=== PATIENT | male | born 1950 | race Caucasian/White ===

== ENCOUNTER → 2019-11-09 14:14 | Outpatient (BNVA) | payer MEDICARE, SELFPAY | PROVIDERS: Family Provider Nurse Practitioner; PCP Nurse Practitioner; Visit Provider Nurse Practitioner | DX: E11.65 Type 2 diabetes mellitus with hyperglycemia (principal); E78.1 Pure hyperglyceridemia; I10 Essential (primary) hypertension; F41.9 Anxiety disorder, unspecified | CPT/HCPCS: 80053; 80061; 81003; 83036 ==

== ENCOUNTER → 2020-01-06 10:01 | Outpatient (BNVA) | payer SELFPAY | PROVIDERS: Family Provider Nurse Practitioner; PCP Family Medicine; Visit Provider Anesthesiology | DX: G89.29 Other chronic pain (principal); M54.16 Radiculopathy, lumbar region; F17.290 Nicotine dependence, other tobacco product, uncomplicated; Z79.891 Long term (current) use of opiate analgesic | CPT/HCPCS: 99213; 99214 ==

== ENCOUNTER → 2020-03-28 10:44 | Outpatient (BNVA) | payer MEDICARE, SELFPAY | PROVIDERS: Family Provider Nurse Practitioner; PCP Family Medicine; Visit Provider Anesthesiology | DX: G89.29 Other chronic pain (principal); M54.41 Lumbago with sciatica, right side; M54.42 Lumbago with sciatica, left side; M54.16 Radiculopathy, lumbar region; F17.290 Nicotine dependence, other tobacco product, uncomplicated; Z79.891 Long term (current) use of opiate analgesic | CPT/HCPCS: 99213; 99214 ==

== ENCOUNTER → 2020-05-02 10:04 | Outpatient (BNVA) | payer MEDICARE, SELFPAY | PROVIDERS: Family Provider Nurse Practitioner; PCP Family Medicine; Visit Provider Anesthesiology | DX: G89.29 Other chronic pain (principal); M54.41 Lumbago with sciatica, right side; M54.42 Lumbago with sciatica, left side; M54.16 Radiculopathy, lumbar region; F17.290 Nicotine dependence, other tobacco product, uncomplicated; Z79.891 Long term (current) use of opiate analgesic | CPT/HCPCS: 99214 ==

== ENCOUNTER → 2020-07-03 10:00 | Outpatient (BNVA) | payer MEDICARE, SELFPAY | PROVIDERS: Family Provider Nurse Practitioner; PCP Family Medicine; Visit Provider Anesthesiology | DX: G89.29 Other chronic pain (principal); M54.42 Lumbago with sciatica, left side; M54.41 Lumbago with sciatica, right side; M54.16 Radiculopathy, lumbar region; F17.290 Nicotine dependence, other tobacco product, uncomplicated; Z79.891 Long term (current) use of opiate analgesic; Z71.6 Tobacco abuse counseling | CPT/HCPCS: 99214 ==

== ENCOUNTER → 2020-08-29 09:23 | Outpatient (BNVA) | payer MEDICARE, SELFPAY | PROVIDERS: Family Provider Nurse Practitioner; PCP Family Medicine; Visit Provider Anesthesiology | DX: G89.29 Other chronic pain (principal); M54.16 Radiculopathy, lumbar region; Z79.891 Long term (current) use of opiate analgesic | CPT/HCPCS: 99212; 99214 ==

== ENCOUNTER → 2020-10-31 10:07 | Outpatient (BNVA) | payer MEDICARE, SELFPAY | PROVIDERS: Family Provider Nurse Practitioner; PCP Family Medicine; Visit Provider Anesthesiology | DX: G89.29 Other chronic pain (principal); M54.16 Radiculopathy, lumbar region; F41.9 Anxiety disorder, unspecified; F32.9 Major depressive disorder, single episode, unspecified; Z79.891 Long term (current) use of opiate analgesic | CPT/HCPCS: 99214 ==

== ENCOUNTER 2020-11-12 11:21 | Emergency (ER) | payer MEDICARE, SELFPAY ==
[2020-11-12 11:24] VITALS: BP 127/87; PULSE 96; RESP 18; TEMP 36.2; O2SAT 96
--- NOTE | 2020-11-12 11:49 | CT_ITS ---
WS: [id number] CT HEAD NONCONTRAST HISTORY: ams TECHNIQUE: Contiguous axial imaging performed through the brain in 2.5 mm imaging. Bone and soft tiss ue windows. Sagittal and coronal reformats reviewed. All CT scans at [facility] use at ast one of these dose optimization techniques: automated exposure control; mA and/or kV adjustment pe r patient size (includes targeted exams where dose is matched to clinical indication); or iterative r econstruction. DLP: 889.88 mGy.cm COMPARISON: None available. No acute intracranial hemorrhage, midline shift or mass effect. Mild atrophy and severe chronic microvascular ischemic changes in the white matter. There is diffuse low attenuation within the white matter. No lacunar infarct. Ventricles: Normal size with no hydrocephalus. No inferior displacement of the cerebellar tonsils. Paranasal sinuses: As visualized are clear. Mastoid air cells: Well pneumatized. Calvarium and scalp: Skull is intact with no soft tissue edema or swelling. CT/CT head wo con* [id number] IMPRESSION: 1. No acute intracranial hemorrhage or edema. 2. Mild atrophy with moderate to severe chronic microvascular ischemic disease .
--- NOTE | 2020-11-12 11:55 | W.ED.AMS ---
HPI - Altered Mental Status General: Chief Complaint: Altered Mental Status Stated Complaint: Hallucinations/Pain Time Seen by Provider: 11/12/20 11:49 History of Present Illness: HPI narrative: Few days after starting Wellbutrin a week and a half ago he has started having visual and auditory hallucinations. Said his blood sugars been doing good. Has been taking pain medications as prescribed. complaint: confusion and weakness Onset (ago): day(s) Timing confirmed by: family member (Son) Severity: mild Context: change in medication Associated symptoms: Reports auditory hallucinations and visual hallucinations Review of Systems Const: Denies: fever(s), chills or body aches Eyes: Denies: change in vision or blurry vision ENMT: Denies: throat pain or nasal congestion Card: Denies: chest pain or dyspnea on exertion Resp: Denies: dyspnea, productive cough or non-productive cough GI: Denies: abdominal pain, nausea or vomiting : Denies: difficulty urinating Musc: Denies: extremity pain Skin/Breast: Denies: rash Neuro: Denies: headache(s) Psych: Reports: visual hallucinations and auditory hallucinations [place]/Lymph: Denies: easy bruising PFSH ED PFSH: Medical History (Updated 11/12/20 @ 13:21 by KWABENA Garza) Anxiety and depression Benign hypertension Chronic low back pain Chronic lumbar radiculopathy Controlled diabetes mellitus with hyperglycemia, without long-term current use of insulin DDD (degenerative disc disease), lumbar Encounter for long-term use of opiate analgesic Hypertriglyceridemia Opioid contract exists Vitamin D insufficiency Surgical History History of appendectomy History of colonoscopy 2016 History of squamous cell carcinoma excision Left hand 07/2019 Family History Mother Cancer Dementia Father Heart disease Social History Smoking and tobacco status: former smoker Second hand smoke exposure: No Smoking risk assessment/counseling performed?: Yes Alcohol intake: current Alcohol intake frequency: 0-2 Drinks per Day Alcohol type: beer Desire information about alcohol rehabilitation?: No (PATIENT CURRENTLY DENIES USE 01/06/2020) Counseling given: No Desire information about substance/drug rehabilitation?: No Counseling given: No Caregiver/support person: No Lives independently: Yes Marital status: History of recent travel: No Current gender identity: Male Physical Exam Const: COMMON NORMALS: no acute distress, average body habitus and patient oriented x3 HENMT: COMMON NORMALS: normocephalic HEAD & SCALP: normal to inspection and normocephalic FACE & SINUS: normal facial exam Eye: COMMON NORMALS: conjunctivae normal GENERAL EYE: appearance normal, both eyes and all related structures CONJUNCTIVA: Yes conjunctivae normal Neck/C-Spine: COMMON NORMALS: no JVD Chest: COMMONS NORMALS: normal inspection of the chest Resp: COMMON NORMALS: normal respiratory effort and clear to auscultation bilaterally AUSCULTATION: clear to auscultation bilaterally Cardio: COMMON NORMALS: no JVD, regular rate and regular rhythm RATE: regular rate RHYTHM: regular rhythm GI: COMMON NORMALS: Normal to inspection, nondistended, normoactive bowel sounds present Extremity: COMMON NORMALS: normal to inspection and full ROM Neuro: COMMON NORMALS: patient oriented x3 Skin: OTHER: Patient is scratches to arms knuckles legs. Course Vital Signs: Vital signs: Vital Signs Temperature 97.1 F L 11/12/20 11:24 Pulse Rate 79 11/12/20 12:56 Respiratory Rate 16 11/12/20 12:56 Blood Pressure 137/80 11/12/20 12:56 Pulse Oximetry 96 11/12/20 12:56 MDM - Altered Mental Status MDM Narrative: Medical decision making narrative: Patient vision auditory hallucinations started soon after starting on Wellbutrin. Patient says his anxiety depression became better on the Wellbutrin. Patient still continues on the medications and sugar has been fine. Patient has long history of abusing drugs and earlier age. Patient get labs repeated at his next visit especially over bilirubin and other labs patient is unaware this. Lab Data: Labs: Lab Results 11/12/20 11/12/20 Range/Units 12:05 12:05 WBC 10.4 H (4.0-10.0) 10^3/ uL RBC 5.03 (4.1-5.3) 10^6/u L Hgb 15.4 (11.7-16.6) g/dL Hct 43.4 (42.0-52.0) % MCV 86.3 (80-94) fL MCH 30.6 (28.0-34.0) pg MCHC 35.5 (30.0-36.0) g/dL RDW 13.2 (12.1-15.1) % Plt Count 245 (130-400) 10^3/c mm MPV 9.4 (7.4-10.4) fL Neut % (Auto) 82.4 % Lymph % (Auto) 8.4 % [place] % (Auto) 8.3 % Eos % (Auto) 0.1 % Baso % (Auto) 0.4 % Neut # (Auto) 8.55 H (1.8-7.7) 10^3/u L Lymph # (Auto) 0.9 (0.8-4.8) 10^3/u L [place] # (Auto) 0.9 (0.2-0.9) 10^3/u L Eos # (Auto) 0.0 (0.0-0.8) 10^3/u L Baso # (Auto) 0.0 (0.0-0.1) 10^3/u L Nucleated RBC % (a uto) 0 % Nucleated RBCs # 0.0 /100WBC Sodium 140 (136-145) mmol/L Potassium 3.6 (3.5-5.1) mmol/L Chloride 100 (98-107) mmol/L Carbon Dioxide 29 (22-29) mmol/L Anion Gap 14.6 (5-19) BUN 17 (8-23) mg/dL Creatinine 0.8 (0.7-1.2) mg/dL GFR Calculation 95.8 (90-130) mL/min Glucose 123 H (65-115) mg/dL Calculated Osmolal ity 293 (285-295) mOsm/k g Calcium 10.0 (8.5-10.5) mg/dL Total Bilirubin 2.0 H (0.15-1.2) mg/dL AST 48 H (0-40) U/L ALT 24 (0-41) U/L Alkaline Phosphata se 80 (40-130) IU/L Total Protein 6.4 L (6.6-8.7) g/dL Albumin 4.3 (3.5-5.2) g/dL Globulin 2.1 (1.3-4.6) g/dL Discharge Plan Discharge Patient Disposition: Home Clinical Impression: Anxiety and depression, Delirium due to general medical condition Condition: Stable Prescriptions: Discontinued bupropion HCl [Wellbutrin XL] 150 mg tablet extended release 24 hr 150 mg PO DAILY@10 RF: 0 No Action oxycodone 5 mg tablet 5 mg PO QID PRN (Reason: pain) 30 Days Qty: 120 RF: 0 multivitamin Tablet 1 tab PO DAILY@10 RF: 0 Seroquel 300 mg Tablet See Rx Instructions .ROUTE .COMPLEX RF: 0 trazodone 50 mg Tablet See Rx Instructions .ROUTE .COMPLEX RF: 0 Tylenol Extra Strength 500 mg Tablet 1,000 mg PO PRN RF: 0 vitamin B complex Tablet 1 tab PO DAILY RF: 0 saw palmetto 500 mg Capsule 1,000 mg PO BID RF: 0 CoQ-10 100 mg Capsule 100 mg PO DAILY RF: 0 Lipase Concentrate-HP 55 mg Capsule 55 mg PO DAILY RF: 0 tramadol 50 mg tablet 50 mg PO QID RF: 0 losartan 100 mg tablet 100 mg PO DAILY RF: 0 metformin 500 mg tablet extended release 24 hr 1,000 mg PO BID@10,22 RF: 0 Lexapro 20 mg tablet 20 mg PO BEDTIME RF: 0 fenofibrate nanocrystallized 145 mg tablet 145 mg PO DAILY RF: 0 Januvia 100 mg tablet 100 mg PO DAILY@10 RF: 0 Discharge Orders: Discharge ED (Routine); Ordered 11/12/20 Ordered By: Diego Delacruz Referrals: David Song, [facility] [Nurse Practitioner] - Galilea Regalado MD [Primary Care Provider] - Discharge Diet: Usual diet Discharge Activity: Increase activity as tolerated Activity Restrictions/Additional Instructions: Stop Wellbutrin. Follow-up your family medical provider here soon as possible and see about replacing Wellbutrin with another medication. Get ears washed out by your primary care provider if needed. Repeat labs at your next visit with your primary care provider do comprehensive medical metabolic panel and get a urinalysis. Coding Level of Care Code ED Superintendent [employer] Protection for Chg Fwd Exam Comprehensive
[2020-11-12 12:15] LABS: Basophils % 0.4 %; Eosinophils % 0.1 %; Hematocrit 43.4 % (42.0-52.0); Hemoglobin 15.4 g/dL (11.7-16.6); Lymphocytes # 0.9 10^3/uL (0.8-4.8); Lymphocytes % 8.4 %; Mean Corpuscular HGB Conc 35.5 g/dL (30.0-36.0); Mean Corpuscular Hemoglobin 30.6 pg (28.0-34.0); Mean Corpuscular Volume 86.3 fL (80-94); Mean Platelet Volume 9.4 fL (7.4-10.4); Monocytes # 0.9 10^3/uL (0.2-0.9); Monocytes % 8.3 %; Neutrophils # 8.55 10^3/uL (1.8-7.7); Neutrophils % 82.4 %; Nucleated Red Blood Cells % 0 %; Platelet Count 245 10^3/cmm (130-400); Red Blood Count 5.03 10^6/uL (4.1-5.3); Red Cell Distribution Width 13.2 % (12.1-15.1); White Blood Count 10.4 10^3/uL (4.0-10.0)
[2020-11-12 12:56] VITALS: BP 137/80; PULSE 79; RESP 16; O2SAT 96
[2020-11-12 13:13] LABS: Alanine Aminotransferase 24 U/L (0-41); Albumin Level 4.3 g/dL (3.5-5.2); Alkaline Phosphatase 80 IU/L (40-130); Anion Gap 14.6 (5-19); Aspartate Amino Transferase 48 U/L (0-40); Blood Urea Nitrogen 17 mg/dL (8-23); Carbon Dioxide 29 mmol/L (22-29); Chloride 100 mmol/L (98-107); Globulin 2.1 g/dL (1.3-4.6); Glomerular Filtration Rate 95.8 mL/min (90-130); Glucose 123 mg/dL (65-115); Osmolality Calculated 293 mOsm/kg (285-295); Potassium 3.6 mmol/L (3.5-5.1); Sodium 140 mmol/L (136-145); Total Protein 6.4 g/dL (6.6-8.7)
[2020-11-12 13:32] VITALS: BP 139/89; PULSE 86; RESP 20; O2SAT 96
== END 2020-11-12 13:32 | disposition home or self-care (01) ==
PROVIDERS: Emergency Provider Nurse Practitioner Family; PCP Family Medicine
DX: F41.8 Other specified anxiety disorders (principal); F05 Delirium due to known physiological condition; I10 Essential (primary) hypertension; E11.9 Type 2 diabetes mellitus without complications; Z87.891 Personal history of nicotine dependence
CPT/HCPCS: 12345; 70450; 80053; 85025; 99281; 99283

== ENCOUNTER 2020-11-13 00:31 | Inpatient (IN) | payer MEDICARE, SELFPAY ==
[2020-11-13] VITALS (9 sets, daily range): BP systolic 106–163; BP diastolic 68–86; PULSE 75–123; RESP 18–24; TEMP 36.6–38.5; O2SAT 91–98; BMI 28.8
--- NOTE | 2020-11-13 00:32 | XRR_ITS ---
PROCEDURE INFORMATION: Exam: XR Chest, 1 View Exam date and time: 11/13/2020 1:05 AM Age: 69 years old Clinical indication: Other: Hallucinations; Prior surgery; Surgery type: Appy; Additional info: AMS TECHNIQUE: Imaging protocol: XR of the chest Views: 1 view. COMPARISON: CR Chest 1 [place] [id number] 07/13/2019 11:56 AM FINDINGS: Lungs: Unremarkable. No consolidation. Pleural space: Unremarkable. No pleural effusion. No pneumothorax. Heart/Mediastinum: Stable heart size. Vasculature: Tortuous calcified thoracic aorta. Bones/joints: Chronic fracture deformity left clavicle. Degenerative change of the spine. XR/XR chest 1V portable [id number] IMPRESSION: No acute cardiopulmonary process.
--- NOTE | 2020-11-13 00:43 | ED_ITS ---
HPI - Altered Mental Status General: Chief Complaint: Altered Mental Status Stated Complaint: MHE Source: patient and EMS Mode of arrival: EMS Limitations: altered mental status History of Present Illness: HPI narrative: 69-year-old male who is here by EMS with agitation and altered mental status. Patient was seen here earlier today for similar complaints and felt it could be a reaction to his Wellbutrin. Family states since has been home he has been worsening was destroying the house. Patient has some agitation here and does appear quite anxious. He is answering my questions. He is able to tell me his name but did not know the president or the year. He has had no recent fevers. He does not have a headache. No seizures. Review of Systems General: Reports: ROS unobtainable due to mental status PFS ED PFSH: Medical History Anxiety and depression Benign hypertension Chronic low back pain Chronic lumbar radiculopathy Controlled diabetes mellitus with hyperglycemia, without long-term current use of insulin DDD (degenerative disc disease), lumbar Encounter for long-term use of opiate analgesic Hypertriglyceridemia Opioid contract exists Vitamin D insufficiency Surgical History History of appendectomy History of colonoscopy 2015 History of squamous cell carcinoma excision Left hand 07/2019 Family History Mother Cancer Dementia Father Heart disease Social History Smoking and tobacco status: former smoker Second hand smoke exposure: No Smoking risk assessment/counseling performed?: Yes Alcohol intake: current Alcohol intake frequency: 0-2 Drinks per Day Alcohol type: beer Desire information about alcohol rehabilitation?: No (PATIENT CURRENTLY DENIES USE 01/06/2020) Counseling given: No Desire information about substance/drug rehabilitation?: No Counseling given: No Caregiver/support person: No Lives independently: Yes Marital status: History of recent travel: No Current gender identity: Male Physical Exam Const: COMMON NORMALS: negative for patient oriented x3 EXAM LIMITATIONS: altered mental status GENERAL APPEARANCE: disheveled OTHER: Patient appears anxious. He is able to tell me his name but he thought the year was 2001 and he did not know who the president was HENMT: COMMON NORMALS: normocephalic and atraumatic HEAD & SCALP: normocephalic and atraumatic Eye: COMMON NORMALS: Equal, round and reactive pupils present and EOMs intact bilaterally PUPIL: Yes Equal, round and reactive pupils present Neck/C-Spine: COMMON NORMALS: full ROM and supple Chest: COMMONS NORMALS: normal inspection of the chest and normal palpation of entire chest wall Resp: COMMON NORMALS: normal respiratory effort, No retractions, No use of accessory muscles and clear to auscultation bilaterally AUSCULTATION: clear to auscultation bilaterally Cardio: COMMON NORMALS: regular rate, regular rhythm and No murmurs present (Cardio) RATE: regular rate RHYTHM: regular rhythm GI: COMMON NORMALS: Normal to inspection, nondistended, normoactive bowel sounds present, Soft to palpation, non-tender and no masses PALPATION: Yes Soft to palpation Extremity: COMMON NORMALS: normal to inspection and full ROM Neuro: COMMON NORMALS: moves all extremities and no focal motor deficits; negative for patient oriented x3 Psych: COMMON NORMALS: negative for mental status grossly normal OTHER: Patient appears very anxious Skin: COMMON NORMALS: no rashes or lesions noted and no wounds GENERAL SKIN EXAM: no rashes or lesions noted Course Vital Signs: Vital signs: Vital Signs Temperature 98.5 F 11/13/20 00:44 Pulse Rate 96 11/13/20 03:22 Respiratory Rate 20 H 11/13/20 03:22 Blood Pressure 106/76 11/13/20 03:22 Pulse Oximetry 98 11/13/20 03:22 MDM - Altered Mental Status MDM Narrative: Medical decision making narrative: Buck presents here with altered mental status along with agitation. Patient's blood work and head CT here are normal. He has no signs of meningitis. Spoke to hospitalist and will admit for his altered mental status. He has been stable while here. Lab Data: Labs: Lab Results 11/13/20 11/13/20 11/13/20 Range/Units 01:28 01:28 01:36 WBC (4.0-10.0) 10^3/ uL RBC (4.1-5.3) 10^6/u L Hgb (11.7-16.6) g/dL Hct (42.0-52.0) % MCV (80-94) fL MCH (28.0-34.0) pg MCHC (30.0-36.0) g/dL RDW (12.1-15.1) % Plt Count (130-400) 10^3/c mm MPV (7.4-10.4) fL Neut % (Auto) % Lymph % (Auto) % [place] % (Auto) % Eos % (Auto) % Baso % (Auto) % Neut # (Auto) (1.8-7.7) 10^3/u L Lymph # (Auto) (0.8-4.8) 10^3/u L [place] # (Auto) (0.2-0.9) 10^3/u L Eos # (Auto) (0.0-0.8) 10^3/u L Baso # (Auto) (0.0-0.1) 10^3/u L Nucleated RBC % (a uto) % Nucleated RBCs # /100WBC D-Dimer 1.00 H (0-0.59) ug/mIFE U Sodium (136-145) mmol/L Potassium (3.5-5.1) mmol/L Chloride (98-107) mmol/L Carbon Dioxide (22-29) mmol/L Anion Gap (5-19) BUN (8-23) mg/dL Creatinine (0.7-1.2) mg/dL GFR Calculation (90-130) mL/min Glucose (65-115) mg/dL Calculated Osmolal ity (285-295) mOsm/k g Calcium (8.5-10.5) mg/dL Total Bilirubin (0.15-1.2) mg/dL AST (0-40) U/L ALT (0-41) U/L Alkaline Phosphata se (40-130) IU/L Total Protein (6.6-8.7) g/dL Albumin (3.5-5.2) g/dL Globulin (1.3-4.6) g/dL Vitamin B12 511 (232-1245) pg/mL TSH 3.19 (0.27-4.20) uIU/ mL Urine Color Yellow (Yellow) Urine Appearance Clear (CLEAR) Urine pH 5.0 (5-7) Ur Specific Gravit y 1.015 (1.005-1.030) Urine Protein Neg (Negative) Urine Glucose (UA) Norm (Normal) Urine Ketones Negative (Negative) Urine Blood Neg (Negative) Urine Nitrate Negative (Negative) Urine Bilirubin Neg (Negative) Urine Urobilinogen Norm (Negative) mg/dL Ur Leukocyte Yeny ase Negative (Negative) Salicylates (3-10) mg/dL Urine Opiates Scre en (Negative) ng/mL Acetaminophen (10-30) ug/mL Ur Barbiturates Sc reen (Negative) ng/mL Ur Phencyclidine S crn (Negative) ng/mL Ur Amphetamines Sc reen (Negative) ng/mL U Benzodiazepines Scrn (Negative) ng/mL Urine Cocaine Scre en (Negative) ng/mL U Marijuana (THC) Screen (Negative) ng/mL Ethyl Alcohol (0-10) mg/dL 11/13/20 11/13/20 11/13/20 Range/Units 01:36 01:38 01:38 WBC 9.7 (4.0-10.0) 10^3/ uL RBC 4.73 (4.1-5.3) 10^6/u L Hgb 14.5 (11.7-16.6) g/dL Hct 41.3 L (42.0-52.0) % MCV 87.3 (80-94) fL MCH 30.7 (28.0-34.0) pg MCHC 35.1 (30.0-36.0) g/dL RDW 13.2 (12.1-15.1) % Plt Count 221 (130-400) 10^3/c mm MPV 9.8 (7.4-10.4) fL Neut % (Auto) 76.3 % Lymph % (Auto) 11.4 % [place] % (Auto) 11.2 % Eos % (Auto) 0.2 % Baso % (Auto) 0.4 % Neut # (Auto) 7.37 (1.8-7.7) 10^3/u L Lymph # (Auto) 1.1 (0.8-4.8) 10^3/u L [place] # (Auto) 1.1 H (0.2-0.9) 10^3/u L Eos # (Auto) 0.0 (0.0-0.8) 10^3/u L Baso # (Auto) 0.0 (0.0-0.1) 10^3/u L Nucleated RBC % (a uto) 0 % Nucleated RBCs # 0.0 /100WBC D-Dimer (0-0.59) ug/mIFE U Sodium 141 (136-145) mmol/L Potassium 3.7 (3.5-5.1) mmol/L Chloride 101 (98-107) mmol/L Carbon Dioxide 26 (22-29) mmol/L Anion Gap 17.7 (5-19) BUN 20 (8-23) mg/dL Creatinine 1.0 (0.7-1.2) mg/dL GFR Calculation 74.1 L (90-130) mL/min Glucose 137 H (65-115) mg/dL Calculated Osmolal ity 297 H (285-295) mOsm/k g Calcium 9.4 (8.5-10.5) mg/dL Total Bilirubin 1.7 H (0.15-1.2) mg/dL AST 55 H (0-40) U/L ALT 30 (0-41) U/L Alkaline Phosphata se 71 (40-130) IU/L Total Protein 6.1 L (6.6-8.7) g/dL Albumin 3.9 (3.5-5.2) g/dL Globulin 2.2 (1.3-4.6) g/dL Vitamin B12 (232-1245) pg/mL TSH (0.27-4.20) uIU/ mL Urine Color (Yellow) Urine Appearance (CLEAR) Urine pH (5-7) Ur Specific Gravit y (1.005-1.030) Urine Protein (Negative) Urine Glucose (UA) (Normal) Urine Ketones (Negative) Urine Blood (Negative) Urine Nitrate (Negative) Urine Bilirubin (Negative) Urine Urobilinogen (Negative) mg/dL Ur Leukocyte Yeny ase (Negative) Salicylates < 0.3 L (3-10) mg/dL Urine Opiates Scre en Negative (Negative) ng/mL Acetaminophen < 5.0 L (10-30) ug/mL Ur Barbiturates Sc reen Negative (Negative) ng/mL Ur Phencyclidine S crn Negative (Negative) ng/mL Ur Amphetamines Sc reen Negative (Negative) ng/mL U Benzodiazepines Scrn Negative (Negative) ng/mL Urine Cocaine Scre en Negative (Negative) ng/mL U Marijuana (THC) Screen Negative (Negative) ng/mL Ethyl Alcohol < 10 (0-10) mg/dL Imaging Data^: CXR: Attestation: I personally reviewed and interpreted this imaging study as follows: My impression: no acute abnormality Discharge Plan Discharge Patient Disposition: Admitted As Inpatient Admit Provider: Bárbara Hathaway Clinical Impression: Altered mental status Condition: Stable Coding Level of Care Code ED Power System Operator for g Fwd Exam Comprehensive
[2020-11-13] MEDS: LORazepam 2 mg/mL INJ 1 mL IV (01:13)
[2020-11-13 02:12] LABS: Basophils % 0.4 %; Eosinophils % 0.2 %; Hematocrit 41.3 % (42.0-52.0); Hemoglobin 14.5 g/dL (11.7-16.6); Lymphocytes # 1.1 10^3/uL (0.8-4.8); Lymphocytes % 11.4 %; Mean Corpuscular HGB Conc 35.1 g/dL (30.0-36.0); Mean Corpuscular Hemoglobin 30.7 pg (28.0-34.0); Mean Corpuscular Volume 87.3 fL (80-94); Mean Platelet Volume 9.8 fL (7.4-10.4); Monocytes # 1.1 10^3/uL (0.2-0.9); Monocytes % 11.2 %; Neutrophils # 7.37 10^3/uL (1.8-7.7); Neutrophils % 76.3 %; Nucleated Red Blood Cells % 0 %; Platelet Count 221 10^3/cmm (130-400); Red Blood Count 4.73 10^6/uL (4.1-5.3); Red Cell Distribution Width 13.2 % (12.1-15.1); White Blood Count 9.7 10^3/uL (4.0-10.0)
[2020-11-13 02:24] LABS: Add Urine Microscopic? NO
[2020-11-13 02:33] LABS: Specific Gravity, Urine 1.015 (1.005-1.030); Urine Appearance Clear (CLEAR); Urine Color Yellow (Yellow)
[2020-11-13 02:34] LABS: Bilirubin Urine Neg (Negative); Blood Urine Neg (Negative); Glucose Urine UA Norm (Normal); Ketones Urine Negative (Negative); Leukocyte Esterase Urine Negative (Negative); Nitrate Urine Negative (Negative); Protein Urine Neg (Negative); Urobilinogen Urine Norm (Negative)
[2020-11-13 02:35] LABS: Amphetamines Screen Urine Negative (Negative); Barbiturates Screen Urine Negative (Negative); Benzodiazepines Screen Urine Negative (Negative); Cocaine Screen Urine Negative (Negative); Opiate Screen Urine Negative (Negative); PCP Screen Urine Negative (Negative); THC Screen Urine Negative (Negative)
[2020-11-13 02:38] LABS: Alanine Aminotransferase 30 U/L (0-41); Albumin Level 3.9 g/dL (3.5-5.2); Alkaline Phosphatase 71 IU/L (40-130); Anion Gap 17.7 (5-19); Aspartate Amino Transferase 55 U/L (0-40); Blood Urea Nitrogen 20 mg/dL (8-23); Calcium 9.4 mg/dL (8.5-10.5); Carbon Dioxide 26 mmol/L (22-29); Chloride 101 mmol/L (98-107); Creatinine Clr Calc Pharmacy 74.4644; Globulin 2.2 g/dL (1.3-4.6); Glomerular Filtration Rate 74.1 mL/min (90-130); Glucose 137 mg/dL (65-115); Osmolality Calculated 297 mOsm/kg (285-295); Potassium 3.7 mmol/L (3.5-5.1); Sodium 141 mmol/L (136-145); Total Bilirubin 1.7 mg/dL (0.15-1.2); Total Protein 6.1 g/dL (6.6-8.7)
[2020-11-13 02:44] LABS: Acetaminophen < 5.0 ug/mL (10-30); Alcohol Level < 10 mg/dL (0-10); Salicylate < 0.3 mg/dL (3-10)
--- NOTE | 2020-11-13 03:05 | P.HP_ITS ---
Providers/Chief Complaint Primary Care Provider: Galilea Regalado MD Chief Complaint: MHE History of Present Illness Buck Tee is a 69 year old male who has been struggling with bipolar disorder for quite some time presented today with hallucination. Son is at the bedside who is stating that for last few months his father has been struggling with depression, he has been taking Lexapro Wellbutrin and other anxiolytics, doses has been increased because of no improvement in his symptoms. Above 2 to 3 months ago he was living in a mobile home and moved in a rental home because of extreme weather conditions. Son noticed that his father has been experiencing visual, auditory hallucinations, expressed paranoid behavior, slur red speech, insomnia. Now Mr. Tee is living with his son. Son is stating that in last 48 hours he has not slept at all, whenever he tries to sleep he gets vivid hallucination and he gets very agitated. He thinks comes someone has trapped him in a mobile home, he tries to escape from the room crawl on the floor and jump out of the window. Son did not notice strokelike symptoms. Patient does not smoke or use any recreational drugs. No history of Parkinson's or prior diagnosis of dementia. Son is not able to take care of him at home and that is why he was brought to the hospital. Diagnostics in the ER revealed normal CBC, CMP revealed high bilirubin, he is tachycardic, telemetry is reading tachycardia because he is tremulous, I have requested D-dimer, procalcitonin level, urinalysis unremarkable CT head unremarkable, chest x-ray without acute pathology. In the ER patient received 3 mg of Ativan and 5 mg Haldol at the time my evaluation patient was able to open his eyes spontaneously but he was not able to give me any detailed HPI. No strokelike symptoms noted.. Review of Systems General: Reports: ROS unobtainable due to medical condition (Hyperactive delirium) Medications/Allergies Home Medications Medication Instructions Recorded Confirmed Last Taken Type oxycodone 5 mg tablet 5 mg PO QID PRN 30 Days #120 tab 10/31/20 11/12/20 11/12/20 Rx Lexapro 20 mg PO BEDTIME 11/12/20 11/12/20 11/11/20 History acetaminophen [Tylenol Extra 1,000 mg PO PRN 11/12/20 11/12/2011/11/21 History Strength] coenzyme Q10 [CoQ-10] 100 mg PO DAILY 11/12/20 11/12/20 Unknown History digestive enzymes (plant) [Lipase 55 mg PO DAILY 11/12/20 11/12/20 Unknown History Concentrate-HP] fenofibrate nanocrystallized 145 mg PO DAILY 11/12/20 11/12/20 Unknown History losartan 100 mg PO DAILY 11/12/20 11/12/20 Unknown History metformin 1,000 mg PO BID@11/12/20 11/12/20 11/12/20 08:00 History multivitamin 1 tab PO DAILY@10 11/12/20 11/12/20 11/12/20 History quetiapine [Seroquel] See Rx Instructions .ROUTE .COMPLEX 11/12/20 11/12/20 Unknown History saw palmetto 1,000 mg PO BID 11/12/20 11/12/20 Unknown History sitagliptin [Januvia] 100 mg PO DAILY@10 11/12/20 11/12/20 11/12/20 History tramadol 50 mg PO QID 11/12/20 11/12/20 11/12/20 History trazodone See Rx Instructions .ROUTE .COMPLEX 11/12/20 11/12/20 Unknown History vitamin B complex 1 tab PO DAILY 11/12/20 11/12/20 Unknown History Allergies Allergy/AdvReac Type Severity Reaction Status Date / Time No Known Allergies Allergy Verified 11/12/20 12:36 PFSH Acute PFSH: Medical History Anxiety and depression Benign hypertension Chronic low back pain Chronic lumbar radiculopathy Controlled diabetes mellitus with hyperglycemia, without long-term current use of insulin DDD (degenerative disc disease), lumbar Encounter for long-term use of opiate analgesic Hypertriglyceridemia Opioid contract exists Vitamin D insufficiency Surgical History History of appendectomy History of colonoscopy 2015 History of squamous cell carcinoma excision Left hand 07/2019 Family History Mother Cancer Dementia Father Heart disease Social History Smoking and tobacco status: former smoker Second hand smoke exposure: No Smoking risk assessment/counseling performed?: Yes Alcohol intake: current Alcohol intake frequency: 0-2 Drinks per Day Alcohol type: beer Desire information about alcohol rehabilitation?: No (PATIENT CURRENTLY DENIES USE 01/06/2020) Counseling given: No Desire information about substance/drug rehabilitation?: No Counseling given: No Caregiver/support person: No Lives independently: Yes Marital status: History of recent travel: No Current gender identity: Male Vitals/I&O/Wt Last Vital Signs Temp 98.5 F 11/13/20 00:44 Pulse 123 H 11/13/20 00:44 Resp 18 11/13/20 00:44 BP 112/81 11/13/20 00:44 Pulse Ox 96 11/13/20 00:44 Weight last 48 hrs Weight 86.183 kg Physical Exam Narrative: EXAM NARRATIVE: Middle-age male who appears more than stated age, unkept appearance, appears dehydrated, Throughout my evaluation he kept his eyes closed after getting Haldol and Ativan but he would open his eyes spontaneously, after some words but not able to comprehend my commands, no focal deficit Pupils reactive bilaterally Able to move all of his extremities without any limitations, patient do get startled very easily, I did not appreciate any myoclonus or muscle fasciculations No bruxism S1, S2 sinus tachycardia no signs of heart failure Abdomen soft nontender bowel sounds present Lower extremity no edema gangrene or ulcer Multiple petechial rash right upper extremity Multiple laceration and abrasion of these without active signs of septic joint or cellulitis Bilateral breath sounds without adventitious rhonchi or crackles Data : 11/13/20 01:38 11/13/20 01:38 A&P Assessment and plan (1) Delirium due to general medical condition: Status: Acute (2) Altered mental status: Status: Acute Additional A&P Information Acute hyperactive delirium Rule out reversible causes of delirium, will check B12, TSH level, Normal CBC, urinalysis unremarkable, CMP revealed high bilirubin however no active signs of cholangitis, would request hepatitis panel, patient does carry history hepatitis C,rule out Gilbert syndrome Multiple petechial rash of right extremity however does not look like cry oglobulinemia presentation My differential would include psychosis due to medications, Lewy body dementia, decompensated bipolar disorder, schizophrenia I do think patient will be able to stay still for the MRI if that is needed to rule out parietal or temporal lobe acute infarct, however suspicion is low Kindly consider psych evaluation in the morning Chest x-ray unremarkable no sign of sepsis, calcium 9.4 normal, as per the son no recent constipation or diarrhea Bipolar disorder Exacerbation due to insomnia Schizoaffective disorder? His anxiolytics dosages was recently increased, clinically I do not see any signs of serotonin syndrome, no myoclonus on clinical exam Monitor QTC prolongation, would request another EKG For sinus tachycardia would request D-dimer, however no hemodynamic instability or hypoxia Full code Consistent carb diet DVT prophylaxis Lovenox Disposition: Once medically cleared will need [facility] placement as son is not able to take care of him at all at home Attestations Medical Necessity Statement*: Anticipating discharge in less than 48 hours, need to rule out reversible causes of delirium Time Spent in Patient Care: (>than 50% of time spent in counselling and/or direct pt care on unit) . 50mins Coding Level of Care Code Acute Geospatial Specialist for Екатерина Castillo Diagnoses Delirium due to general medical condition F05 Altered mental status R41.82
[2020-11-13] MEDS: LORazepam 2 mg/mL INJ 1 mL 1 MG IVP (03:20)
[2020-11-13] MEDS: haloperidol inj 5 mg/mL INJ 1 mL IM (03:24)
[2020-11-13 04:14] LABS: Thyroid Stimulating Hormone 3.19 uIU/mL (0.27-4.20); Vitamin B12 511 pg/mL (232-1245)
--- NOTE | 2020-11-13 05:03 | ECG_ITS ---
[facility] Test Date: 2020-11-13 Pat Name: Buck Tee Department: Room: 257 Gender: Male Olericulturist: alexander TREVINO: 1950 Requested By: Bárbara Hathaway Order Number: [id number] Reading MD: Radha Rosales M.D. Measurements Intervals [place] Rate: 85 P: 17 MS: 173 QRS: -32 QRSD: 97 T: 35 QT: 412 QTc: 490 Interpretive Statements SINUS RHYTHM MARKED LEFT AXIS DEVIATION [QRS AXIS < -30] NONSPECIFIC T-WAVE ABNORMALITY Compared to ECG 07/13/2019 11:58:40 Sinus bradycardia no longer present Sinus arrhythmia no longer present T-wave abnormality still present Electronically Signed On 11-13-2020 20:11:17 SPEED READING TEACHER by Radha Rosales M.D. [email or web address]
--- NOTE | 2020-11-13 06:02 | PC.PHAR ---
Vancomycin is dosed at 1gm IVPB ever 12 hours to produce a predicted trough level of 15.85 (population based pharmacokinetic analysis). A trough level has been ordered from the lab to be obtained before the fourth dose to confirm and adjust if needed.
[2020-11-13 06:26] LABS: Prolactin 27.26 ng/mL (4.0-15.2)
[2020-11-13] MEDS: dextrose 5%-sod chloride 0.45% 1,000 ML 30 ML IV (06:57)
[2020-11-13] MEDS: enoxaparin 40 mg/0.4 mL Syringe SUBCUT (06:57)
[2020-11-13] MEDS: OLANZapine 10 mg VIAL IM (06:58)
[2020-11-13] MEDS: cefTRIAXone 1,000 MG in sodium chloride 0.9% (plus) 50 ML 100 MG IV (07:12)
[2020-11-13] MEDS: dexamethasone 10 mg/mL INJ IVP (07:18)
--- NOTE | 2020-11-13 08:01 | PC.PHAR ---
pt unable to verify medications-pt was in the ed on 11/12/2020-medications were verified with son and pt that day-pts son didnt answer phone today-pts bupropion xl 150mg daily was dced in the ed on 11/12/20
[2020-11-13 08:25] LABS: INR 1.11 (0.8-1.2)
[2020-11-13] MEDS: doxycycline 100 MG in sodium chloride 0.9% (plus) 100 ML IV ×2 (08:57→18:07)
--- NOTE | 2020-11-13 09:10 | PC.CHAP ---
Pastoral Care Encounter/Spiritual Assessment Type of Contact [] Declined gate operator visit [] Patient/Family/Request visit [] Outpatient visit [] Follow-up visit [] Physician referral [] Code/Alert [x] Routine visit [] Staff referral [] Actively dying [] Patient sleeping [] Family support [] [] Out of room [] Palliative care [] [] Receiving care in room [] Pre-surgical visit [] Trauma [] Long length of stay [] ICU visit [] Other: Relational/Emotional Strength [] Patient feels connected with others/family/visitors/staff [] Distress [] Loneliness/isolation [] Abandonment Spirituality of Patient [x] Person of Conchis [] Attends Uatsdin of their Conchis [] Believes in Prayer [] Reads Bible or Mandaen materials [] There are Spiritual issues to be addressed Graduate Research Assistant Interventions [x] Prayer [] Active listening [] Non-anxious presence [] Spiritual/emotional support [] Crisis/trauma care [] Spiritual counseling [] Bereavement support [] Provided bereavement packet [x] Provided Bible/devotional materials [] Provided toy/stuffed animal, coloring book to patient or family member [] Provided Communion [] Anointing/[place] [] Salvation [] Completed spiritual assessment [] Other: Impact on Illness or Injury [] Angry [] Fearful [] Anxious [] Often cries [] Exhaustion [] Unable to work [] Unable to attend samaritan [] Unable to walk/stand [] Unable to read [] Unable to drive [] Unable to eat/drink [] Unable to sleep [] Unable to be with family [] Patient intubated [] Other: Summary Time spent with patient 10 min
[2020-11-13 10:00] LABS: Glucose Point of Care 154 mg/dL (70-110)
[2020-11-13 10:50] LABS: Glucose Point of Care 121 mg/dL (70-110)
[2020-11-13] MEDS: vancomycin 1,000 MG in sodium chloride 0.9% 250 ML 250 MG IV ×2 (10:55→21:08)
--- NOTE | 2020-11-13 12:54 | US_ITS ---
WS: [id number] RIGHT UPPER QUADRANT ULTRASOUND HISTORY: hepatobiliary, elevated tbili COMPARISON: None available. Liver: 15.9 cm in length. Normal size liver. Moderately severe coarse echotexture throughout the live r. Surface of the liver is irregular and nodular. No mass. No bile duct dilatation. Gallbladder: No stones identified. There is mild diffuse gallbladder wall thickening which is probabl y related to hepatocellular disease. No pericholecystic fluid. CBD: 0.5 cm Pancreas: Poorly visualized. Right kidney: 10.1 cm in length. Poorly visualized. The entire kidney is not well evaluated. The lowe r pole is not visualized. Aorta and IVC: Unremarkable abdominal aorta and IVC. No ascites. US/US abdomen limited [id number] IMPRESSION: 1. Changes of cirrhosis without bile duct dilatation. 2. No cholelithiasis. Diffuse mild gallbladder wall thickening is probably due to hepatocellular disease.
[2020-11-13 13:52] LABS: Lactate Dehydrogenase 268 U/L (135-225)
[2020-11-13 15:10] LABS: Hepatitis A Antibody IgM Non-Reactive (Nonreactive); Hepatitis B Core AB, Total Reactive (Nonreactive); Hepatitis B Surface AB 11.5 (0-8.5); Hepatitis B Surface Antigen Non-Reactive (Nonreactive); Hepatitis C Virus Antibody Reactive (Nonreactive)
[2020-11-13 17:12] LABS: Glucose Point of Care 138 mg/dL (70-110)
--- NOTE | 2020-11-13 17:55 | P.PN_ITS ---
Subjective Subjective: Interval history: Confused during my visit. Obtunded. One-to-one sitter at bedside. Denies significant restlessness around lunchtime. At that time had not woken up yet. Reportedly later in the evening did wake up, requesting some water. Then going back asleep. Vitals/I&O/Wt Last Vital Signs Temp 98.9 F 11/13/20 14:00 Pulse 75 11/13/20 14:00 Resp 18 11/13/20 14:00 BP 145/78 11/13/20 14:00 Pulse Ox 93 11/13/20 14:00 11/13/20 11/13/20 11/13/20 06:59 14:59 22:59 Intake Total 124 / 124 Balance 124 / 124 Weight last 48 hrs Weight 86.183 kg Physical Exam Const: COMMON NORMALS: no acute distress ORIENTATION/CONSCIOUSNESS: Yes patient obtunded OTHER: Obtunded. Not waking up, not following commands. Occasionally moving around, occasional jerking movement of extremity if trying to pull away from pain, or reposition, however, no rigidity, no hyperreflexia or clonus on examination. HENMT: COMMON NORMALS: oropharynx normal Neck/C-Spine: COMMON NORMALS: no JVD Resp: COMMON NORMALS: normal respiratory effort and clear to auscultation bilaterally AUSCULTATION: clear to auscultation bilaterally Cardio: COMMON NORMALS: no JVD, regular rhythm, S1 normal heart sound present, S2 normal heart sound present and No murmurs present (Cardio) RHYTHM: regular rhythm HEART SOUNDS: S1 normal heart sound present and S2 normal heart sound present GI: COMMON NORMALS: Normal to inspection, nondistended, normoactive bowel sounds present, Soft to palpation and non-tender PALPATION: Yes Soft to palpation Extremity: COMMON NORMALS: no joint enlargement and no pedal edema Neuro: COMMON NORMALS: moves all extremities SENSORIUM/ORIENTATION: Yes obtunded OTHER: Pupils are symmetrical. He appears to withdraw from pain, but otherwise obtunded. No rigidity. No clonus. Brudzinski and Kernig appear to be negative. Skin: LESIONS: lesion noted (Multiple excoriations, scabs over the body. Concentrated mostly on arms, l) Legs. Various stages of healing. Perhaps few minimal petechia. I do not see any signs of scabies in the intertriginous areas. No appearance of open unhealing ulcerations or drainage. Dry skin. 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 Appears to show some improvement this afternoon. His fever has resolved. He had no leukocytosis this morning. He remained per report up until early this evening when he had woken up requesting to drink some water. Subsequently falling back asleep. We are continuing at this time with empiric coverage for meningoencephalitis including antibiotics, acyclovir. I was informed LP could not be performed for him initially due to restlessness, and subsequently also because he had received Lovenox. This was requested to be rescheduled for first internal morning. Further Lovenox is held at this time. SCD are continued for DVT prophylaxis. Otherwise continue to provide supportive care. One-to-one sitter. Fall precautions. For now n.p.o. until mental status improves. We are holding his home medications for now. TSH is noted normal. Vitamin B12 normal. Cirrhosis noted on right upper quadrant ultrasound. Will check ammonia level. I attempted to reach his son for update on his condition but was unable to get a hold of him. Status: Acute (2) Delirium due to general medical condition: Status: Acute (3) Altered mental status: Status: Acute Additional A&P Information Bilirubin elevation: Noted bilirubin of 2 on presentation, this morning 1.7. Requested direct bilirubin, LDH, haptoglobin, limited retroperitoneal ultrasound. His abdomen is soft on exam, he does not appear to grimace or flinch on examination of right upper quadrant. Ultrasound with noted changes of cirrhosis without bile duct dilation. No cholelithiasis. Diffuse mild gallbladder wall thickening thought to be secondary to hepatocellular disease. B core antibody positive. Hep B surface antibody positive. Noted. C antibody positive noted. Bipolar disorder. Attestations Medical Necessity Statement*: Continue admission for assessment and management of acute encephalopathy with possible meningoencephalitis with empiric treatment this time pending additional evaluation. 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
[2020-11-13 20:17] LABS: Ammonia 24 umol/L (16-60)
[2020-11-13] MEDS: escitalopram 10 mg Tablet 20 MG PO (21:08)
[2020-11-13 21:25] LABS: Glucose Point of Care 130 mg/dL (70-110)
[2020-11-14] MEDS: acetaminophen 325 mg Tablet 650 MG PO (02:23)
[2020-11-14 05:02] VITALS: BP 146/59; PULSE 88; RESP 18; TEMP 37.1; O2SAT 94
[2020-11-14 06:22] LABS: Basophils % 0.4 %; Eosinophils % 0.1 %; Hematocrit 39.6 % (42.0-52.0); Hemoglobin 13.7 g/dL (11.7-16.6); Lymphocytes # 1.1 10^3/uL (0.8-4.8); Mean Corpuscular HGB Conc 34.6 g/dL (30.0-36.0); Mean Corpuscular Hemoglobin 30.4 pg (28.0-34.0); Mean Corpuscular Volume 87.8 fL (80-94); Mean Platelet Volume 10.1 fL (7.4-10.4); Monocytes # 0.9 10^3/uL (0.2-0.9); Monocytes % 12.1 %; Neutrophils # 5.25 10^3/uL (1.8-7.7); Neutrophils % 72.1 %; Nucleated Red Blood Cells % 0 %; Platelet Count 191 10^3/cmm (130-400); Red Blood Count 4.51 10^6/uL (4.1-5.3); Red Cell Distribution Width 13.1 % (12.1-15.1); White Blood Count 7.3 10^3/uL (4.0-10.0)
[2020-11-14] MEDS: cefTRIAXone 1,000 MG in sodium chloride 0.9% (plus) 50 ML 100 MG IV (06:28)
[2020-11-14 06:52] LABS: Glucose Point of Care 132 mg/dL (70-110)
[2020-11-14 06:54] LABS: Alanine Aminotransferase 26 U/L (0-41); Albumin Level 3.4 g/dL (3.5-5.2); Alkaline Phosphatase 64 IU/L (40-130); Anion Gap 12.2 (5-19); Aspartate Amino Transferase 44 U/L (0-40); Blood Urea Nitrogen 18 mg/dL (8-23); Calcium 9.1 mg/dL (8.5-10.5); Carbon Dioxide 29 mmol/L (22-29); Chloride 105 mmol/L (98-107); Globulin 2.2 g/dL (1.3-4.6); Glomerular Filtration Rate 66.4 mL/min (90-130); Glucose 162 mg/dL (65-115); Osmolality Calculated 301 mOsm/kg (285-295); Potassium 3.2 mmol/L (3.5-5.1); Sodium 143 mmol/L (136-145); Total Bilirubin 1.4 mg/dL (0.15-1.2); Total Protein 5.6 g/dL (6.6-8.7)
[2020-11-14 07:31] VITALS: BP 135/66; PULSE 73; RESP 16; TEMP 37.3; O2SAT 92
--- NOTE | 2020-11-14 08:45 | FL_ITS ---
WS: [id number] Lumbar puncture under fluoroscopy, 11/14/2020 Clinical Data: Meningoencephalitis Comparison: None. Fluoroscopy time: .6 minutes. Findings: With the usual technique the patient's back with cleansed with iodine. Then 5 mL of 1% lidocaine were injected in the subcutaneous tissue at the L3-L4 level via a 25-gauge needle. A 22-gauge spinal need le was inserted into the lumbar subarachnoid space. Then 4 tubes of 4 mL of clear spinal fluid were o btained. The tubes were submitted to the laboratory for analysis. There were no complications. FL/FL guided lumbarpunc dx* [id number] Impression: Satisfactory lumbar puncture for analysis of cerebrospinal fluid.
--- NOTE | 2020-11-14 09:44 | PC.CHAP ---
Pastoral Care Encounter/Spiritual Assessment Type of Contact [] Declined restaurant team member visit [] Patient/Family/Request visit [] Outpatient visit [] Follow-up visit [] Physician referral [] Code/Alert [x] Routine visit [] Staff referral [] Actively dying [] Patient sleeping [] Family support [] [] Out of room [] Palliative care [] [] Receiving care in room [] Pre-surgical visit [] Trauma [] Long length of stay [] ICU visit [] Other: Relational/Emotional Strength [x] Patient feels connected with others/family/visitors/staff [] Distress [] Loneliness/isolation [] Abandonment Spirituality of Patient [x] Person of Conchis [] Attends Anabaptist of their Conchis [x] Believes in Prayer [] Reads Bible or Worship materials [] There are Spiritual issues to be addressed Hris Administrator Interventions [x] Prayer [x] Active listening [] Non-anxious presence [] Spiritual/emotional support [] Crisis/trauma care [] Spiritual counseling [] Bereavement support [] Provided bereavement packet [] Provided Bible/devotional materials [] Provided toy/stuffed animal, coloring book to patient or family member [] Provided Communion [] Anointing/[place] [] Salvation [x] Completed spiritual assessment [] Other: Impact on Illness or Injury [] Angry [] Fearful [] Anxious [] Often cries [] Exhaustion [] Unable to work [] Unable to attend rastafari [] Unable to walk/stand [] Unable to read [] Unable to drive [] Unable to eat/drink [] Unable to sleep [] Unable to be with family [] Patient intubated [] Other: Summary Time spent with patient 15 min
[2020-11-14 10:00] LABS: CSF Mononuclear # 0.003 10^3/uL (50-90); Polynuclear WBC CSF % 0 % (0-10); Red Blood Cell CSF 0 10^3/uL (0-0); White Blood Cell CSF 3 /uL (0-5)
[2020-11-14 10:43] LABS: Glucose CSF 93 mg/dL (40-70)
[2020-11-14 10:51] LABS: Appearance CSF CLEAR (CLEAR); Color CSF COLORLESS (COLORLESS); Mononuclear WBC CSF % 100 % (50-90)
[2020-11-14 11:10] VITALS: BP 122/72; PULSE 78; RESP 18; TEMP 37.3; O2SAT 92
[2020-11-14 11:13] LABS: Lymes IGG WB <0.90 index
[2020-11-14] MEDS: vancomycin 1,000 MG in sodium chloride 0.9% 250 ML 250 MG IV ×2 (11:25→23:38)
[2020-11-14 13:23] LABS: Glucose Point of Care 179 mg/dL (70-110)
[2020-11-14 14:00] VITALS: BP 156/77; PULSE 73; RESP 18; TEMP 37; O2SAT 94
--- NOTE | 2020-11-14 15:10 | MR_ITS ---
WS: [id number] MRI BRAIN WITH AND WITHOUT CONTRAST HISTORY: encephalitis COMPARISON: CT head 11/12/2020 TECHNIQUE: Multiplanar imaging performed through the brain with Prohance 17 ml's IV. No acute infarcts are seen. Wiley-white matter differentiation is well preserved. Extensive periventri cular white matter signal abnormalities. Both confluent and scattered involving a large portion of th e white matter. No large territory infarcts. No hemorrhage. No inferior displacement of cerebellar to nsils. No susceptibility artifacts or prior lacunar infarcts. Ventricles and extra-axial spaces are normal. Clivus and pituitary gland are normal. Visualized posterior fossa and brainstem are also normal. Postcontrast images are negative for masses or vascular malformations. There is some very minimal dur al enhancement which is probably related to the recent lumbar puncture. This is smooth enhancement. N o nodules. No mass. Dural venous sinuses are normal. Paranasal sinuses: Well aerated with no significant disease. Mastoid air cells: Bilateral mastoid air cell effusions, RIGHT greater than LEFT. Calvarium and scalp: Normal. MR/MR head wo/w con [id number] IMPRESSION: 1. No acute infarct or hemorrhage. 2. Moderate to severe chronic white matter ischemic changes are both confluent and patchy. Probably related to an vessel ischemic disease. 3. No enhancing masses. 4. Bilateral mastoiditis, RIGHT greater than LEFT.
[2020-11-14] MEDS: doxycycline 100 MG in sodium chloride 0.9% (plus) 100 ML IV (15:49)
--- NOTE | 2020-11-14 16:14 | P.PN_ITS ---
Subjective Subjective: Interval history: Today he is awake, alert. He does not recall much from yesterday, but otherwise is able to provide history regarding his medications. He reports that he was started on Wellbutrin shortly before his symptoms with hallucinations and vivid dreams began. He reports that the abrasions on his arms and legs were due to what appears to be a vivid dream which he acted out at the end of last week where he dreams about crawling through some bushes and other growth, and subsequently woke up beside his car. Prescription with his son appears he had to crawl out of the window to the car and sustained abrasions on the gravel. He does not have history of night terrors or other parasomnias. He does not use illicit drugs. He used to smoke, subsequently vape, but has not been doing that either. He takes oxycodone and tramadol 4 times a day, and son says they counted his medications at home and there were not any large amounts missing in fact there were somewhat fewer medications that may have been expected. He has not been trazodone. He has not been taking quetiapine. He has been taking Lexapro. Currently he denies any headache, dizziness, any vision changes, any nausea, vomiting, diarrhea, any new rash. He knows he is in [facility]. States the year correctly. Vitals/I&O/Wt Last Vital Signs Temp 98.6 F 11/14/20 14:00 Pulse 73 11/14/20 14:00 Resp 18 11/14/20 14:00 BP 156/77 11/14/20 14:00 Pulse Ox 94 11/14/20 14:00 11/14/20 11/14/20 11/14/20 06:59 14:59 22:59 Intake Total 240 / 1228 360 / 360 Balance 240 / 1228 360 / 360 Weight last 48 hrs Weight 86.183 kg Physical Exam Const: COMMON NORMALS: no acute distress and patient oriented x3 ORIENTATION/CONSCIOUSNESS: Yes oriented to person, Yes oriented to place, Yes oriented to time and Yes patient obtunded OTHER: Awake, alert, oriented, pleasant, conversant. HENMT: COMMON NORMALS: oropharynx normal Neck/C-Spine: COMMON NORMALS: no meningeal signs and no JVD Resp: COMMON NORMALS: normal respiratory effort and clear to auscultation bilaterally AUSCULTATION: clear to auscultation bilaterally Cardio: COMMON NORMALS: no JVD, regular rhythm, S1 normal heart sound present, S2 normal heart sound present and No murmurs present (Cardio) RHYTHM: regular rhythm HEART SOUNDS: S1 normal heart sound present and S2 normal heart sound present GI: COMMON NORMALS: Normal to inspection, nondistended, normoactive bowel sounds present, Soft to palpation and non-tender PALPATION: Yes Soft to palpation Extremity: COMMON NORMALS: no joint enlargement and no pedal edema Neuro: COMMON NORMALS: patient oriented x3 and moves all extremities SENSORIUM/ORIENTATION: Yes alert, Yes oriented to person, Yes oriented to place and Yes oriented to time MENINGEAL SIGNS: Yes no meningeal signs SPEECH: speech normal SENSORY EXAM: Yes Normal double simultaneous stimulation for sensation MOTOR EXAM: 5/5 motor strength present throughout Skin: LESIONS: lesion noted (Multiple excoriations, scabs over the body. 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 He denies any discomfort. No headache. No vision changes. No focal neurologic changes noted. Remains afebrile. Underwent lumbar puncture this morning. Laboratory evaluation ordered. Additionally we have ordered an MRI of his brain due to encephalitis and severity of the symptoms. Discussed with him and his son, this time is difficult to say what exactly may have improved his condition. He has been off medications here with discontinuation of Wellbutrin, and his Lexapro has been held. In case this was medication related, holding these may have improved his condition. Alternatively if this is infection related antibiotics or antiviral may have improved his condition. 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 We will follow-up lumbar puncture results, MRI prior to decision of discontinuation of any anti-infective agents. He otherwise is doing a lot better. Diet resumed. Will obtain PT and OT evaluation. As discussed with him given this may have been medication related we will resume cautiously at a lower dose his Lexapro. Discontinue albuterol. Hold trazodone. Resume at lower dose oxycodone. Hold tramadol for now. If possible would discontinue this as it may raise risk of serotonin syndrome, and especially in combination with SSRIs. 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 TSH is noted normal. Vitamin B12 normal. Cirrhosis noted on right upper quadrant ultrasound. Ammonia normal. Status: Acute (2) Delirium due to general medical condition: Status: Acute (3) Altered mental status: Status: Acute Additional A&P Information Bilirubin elevation: Improving. No abdominal pain. No suggestion of hemolysis. Ultrasound with noted changes of cirrhosis without bile duct dilation. No cholelithiasis. Diffuse mild gallbladder wall thickening thought to be secondary to hepatocellular disease. Follow-up on outpatient side. Liver cirrhosis incidentally noted on ultrasonography. Additional follow-up with primary provider as well as regarding hepatitis. B core antibody positive. Hep B surface antibody positive. Noted. His B surface antigen negative. C antibody positive noted. Bipolar disorder. Attestations Medical Necessity Statement*: Continue admission for assessment management of meningoencephalitis. 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
[2020-11-14 16:26] LABS: Glucose Point of Care 147 mg/dL (70-110)
[2020-11-14 19:14] VITALS: BP 135/74; PULSE 85; RESP 18; TEMP 36.8; O2SAT 94
[2020-11-14 20:03] LABS: Glucose Point of Care 147 mg/dL (70-110)
[2020-11-14] MEDS: lidocaine 1% 5 ML in potassium chloride premix 100 ML 50 ML IV (21:02)
[2020-11-14 21:27] LABS: Total Protein CSF 58 mg/dL (15-45)
[2020-11-14] MEDS: escitalopram 10 mg Tablet PO (22:02)
[2020-11-14 23:38] VITALS: RESP 16
[2020-11-14] MEDS: oxyCODONE 5 mg IR Tab/Cap PO (23:38)
[2020-11-15] VITALS (7 sets, daily range): BP systolic 129–165; BP diastolic 70–89; PULSE 71–80; RESP 16–20; TEMP 36.6–37.3; O2SAT 91–96
[2020-11-15] MEDS: doxycycline 100 MG in sodium chloride 0.9% (plus) 100 ML IV ×2 (03:22→17:29)
[2020-11-15] MEDS: acetaminophen 325 mg Tablet 650 MG PO (05:21)
[2020-11-15] MEDS: cefTRIAXone 1,000 MG in sodium chloride 0.9% (plus) 50 ML 100 MG IV (05:22)
[2020-11-15 05:37] LABS: Basophils % 0.6 %; Eosinophils # 0.1 10^3/uL (0.0-0.8); Eosinophils % 0.8 %; Hemoglobin 13.7 g/dL (11.7-16.6); Lymphocytes % 16.3 %; Mean Corpuscular HGB Conc 34.3 g/dL (30.0-36.0); Mean Corpuscular Hemoglobin 30.3 pg (28.0-34.0); Mean Corpuscular Volume 88.5 fL (80-94); Mean Platelet Volume 10.3 fL (7.4-10.4); Monocytes # 0.8 10^3/uL (0.2-0.9); Monocytes % 13.1 %; Neutrophils # 4.26 10^3/uL (1.8-7.7); Neutrophils % 68.7 %; Nucleated Red Blood Cells % 0 %; Platelet Count 198 10^3/cmm (130-400); Red Blood Count 4.52 10^6/uL (4.1-5.3); Red Cell Distribution Width 13.2 % (12.1-15.1); White Blood Count 6.2 10^3/uL (4.0-10.0)
[2020-11-15 06:11] LABS: Alanine Aminotransferase 53 U/L (0-41); Albumin Level 3.3 g/dL (3.5-5.2); Alkaline Phosphatase 75 IU/L (40-130); Anion Gap 13.7 (5-19); Aspartate Amino Transferase 57 U/L (0-40); Blood Urea Nitrogen 24 mg/dL (8-23); Calcium 9.2 mg/dL (8.5-10.5); Carbon Dioxide 25 mmol/L (22-29); Chloride 109 mmol/L (98-107); Globulin 2.4 g/dL (1.3-4.6); Glomerular Filtration Rate 46.4 mL/min (90-130); Glucose 154 mg/dL (65-115); Osmolality Calculated 305 mOsm/kg (285-295); Potassium 3.7 mmol/L (3.5-5.1); Sodium 144 mmol/L (136-145); Total Protein 5.7 g/dL (6.6-8.7)
[2020-11-15] MEDS: dextrose 5%-sod chloride 0.45% 1,000 ML 30 ML IV (06:36)
[2020-11-15 06:44] LABS: Glucose Point of Care 143 mg/dL (70-110)
[2020-11-15 10:12] LABS: Vancomycin Trough 14.7 ug/mL (10-15)
[2020-11-15 12:06] LABS: Glucose Point of Care 195 mg/dL (70-110)
--- NOTE | 2020-11-15 14:45 | PC.NURSE ---
APPROX. 1430 PT TRANSPORTED TO [facility]
[2020-11-15 17:11] LABS: Glucose Point of Care 87 mg/dL (70-110)
--- NOTE | 2020-11-15 18:23 | P.PN_ITS ---
Subjective Subjective: Interval history: He is feeling tired. Today perhaps more so than yesterday. He has been feeling depressed, and states the depression has been somewhat persistent recently. States that even has had some few fleeting thoughts of self-harm, although says would not act on them stating I do not want to . He is willing to speak with our psychiatrist. He otherwise denies any headache, dizziness, vision changes. Has no nausea, vomiting diarrhea. No chest pain pressure. No shortness of breath or cough. No abdominal discomfort. No new rash, with otherwise healing abrasions on his skin. Vitals/I&O/Wt Last Vital Signs Temp 98.9 F 11/15/20 11:14 Pulse 75 11/15/20 11:14 Resp 19 H 11/15/20 11:14 BP 141/80 11/15/20 11:14 Pulse Ox 91 11/15/20 11:14 11/15/20 11/15/20 11/15/20 06:59 14:59 22:59 Intake Total 629 / 2463 724 / 724 Output Total 250 / 250 200 / 200 Balance 379 / 2213 524 / 524 Physical Exam Const: COMMON NORMALS: no acute distress, patient oriented x3 and alert ORIENTATION/CONSCIOUSNESS: Yes oriented to person, Yes oriented to place, Yes oriented to time and Yes patient obtunded OTHER: Awake, alert, oriented, pleasant, conversant. HENMT: COMMON NORMALS: oropharynx normal Neck/C-Spine: COMMON NORMALS: no meningeal signs and no JVD Resp: COMMON NORMALS: normal respiratory effort and clear to auscultation bilaterally AUSCULTATION: clear to auscultation bilaterally Cardio: COMMON NORMALS: no JVD, regular rhythm, S1 normal heart sound present, S2 normal heart sound present and No murmurs present (Cardio) RHYTHM: regular rhythm HEART SOUNDS: S1 normal heart sound present and S2 normal heart sound present GI: COMMON NORMALS: Normal to inspection, nondistended, normoactive bowel sounds present, Soft to palpation and non-tender PALPATION: Yes Soft to palpation Extremity: COMMON NORMALS: no joint enlargement and no pedal edema Neuro: COMMON NORMALS: patient oriented x3 and moves all extremities SENSORIUM/ORIENTATION: Yes alert, Yes oriented to person, Yes oriented to place and Yes oriented to time MENINGEAL SIGNS: Yes no meningeal signs SPEECH: speech normal SENSORY EXAM: Yes Normal double simultaneous stimulation for sensation MOTOR EXAM: 5/5 motor strength present throughout OTHER: Awake, alert, lucid. Depressed mood. No clonus. Brudzinski and Kernig negative. Skin: LESIONS: lesion noted (Multiple excoriations, scabs over the body. 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 Delirium has resolved as of yesterday morning, although he does not feel entirely back to normal. Today he is feeling tired, perhaps more so than yesterday. Feeling depressed. Has not had any headache, or any complaints of symptoms of focal neurologic abnormalities. Discussed with him the results of lumbar puncture. It is not suggestive of bacterial infection. Discussed mild elevation of CSF protein. This may be expected in the setting of diabetes. A number studies from CSF are still pending. Discussed with him additional alternative diagnostic and therapeutic paths fo rward. Among different options he agrees on discontinuation of antibiotics currently and monitoring. We have discussed discontinuation of antiviral as well in case MRI did not show any suggestion of temporal lobe enhancement as his symptoms otherwise do not appear to be consistent with HSV encephalitis. MRI overall is unremarkable. Acyclovir discontinued. Discussed with him also the low possibility of partially treated bacterial meningitis with unremarkable CSF due to obtaining it sometime after antibiotics have been initiated (a little over 24 hours), however, the rather short duration of antibiotics before September was obtained, and his rapid improvement would rather suggest against bacterial SUPERINTENDENT LOCAL infection. For now with discontinuation of anti-infective agents we will continue to mo nitor. Provide gentle IV hydration. Discussed with him again possibility of medication reaction. He was recently initiated on Wellbutrin just prior to his symptom start. He also takes tramadol 4 times a day, chronically on low-dose Lexapro. Seizure may be a concern with interaction of Wellbutrin, tramadol, although no obvious seizure-like activity was noted at any time. He also had an episode of fever one 1.3. Consideration of possible early serotonin syndrome still could not be completely ruled out. He has done all right so far with resumption of lower dose Lexapro, although he is noting still some persistent tiredness/fatigue. We will go ahead and assess rapid COVID-19 antigen, but he otherwise does not have symptoms consistent with this. T bili elevation has resolved. There is mild transaminitis. No thrombocytopenia. Tick studies are pending. For now continue empiric doxyc ycline. With hepatitis C we will also request for cryoglobulin level, although symptoms otherwise not very suggestive of cryoglobulinemia. Appreciate psychiatry consultation regarding management of his severe depression. On discharge would not resume Wellbutrin. Would attempt to taper down tramadol dosing if possible. TSH is noted normal. Vitamin B12 normal. Cirrhosis noted on right upper quadrant ultrasound. Ammonia normal. Could not reach his son for update by phone today. Status: Acute (2) Delirium due to general medical condition: As above. Status: Acute (3) Altered mental status: As above. Status: Acute Additional A&P Information AILYN: Not entirely clear cause of AILYN, but suspect vancomycin. Discontinue antibiotics. Monitor renal function. Gentle IV fluid challenge. Bilirubin elevation: Resolved. No abdominal pain. No suggestion of hemolysis. Ultrasound with noted changes of cirrhosis without bile duct dilation. No cholelithiasis. Diffuse mild gallbladder wall thickening thought to be secondary to hepatocellular disease. Follow-up on outpatient side. Liver cirrhosis incidentally noted on ultrasonography. Additional follow-up with primary provider as well as regarding hepatitis. B core antibody positive. Hep B surface antibody positive. Noted. His B surface antigen negative. C antibody positive noted. Bipolar disorder. Attestations Medical Necessity Statement*: Continue admission for assessment of management of episode of acute encephalopathy, delirium secondary to unidentified etiology, concomitant severe depression in the setting of possible medication adverse effect. 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
[2020-11-15 18:42] LABS: SARS Covid-2 Antigen Negative (Negative)
[2020-11-15 20:16] LABS: Glucose Point of Care 224 mg/dL (70-110)
[2020-11-15] MEDS: escitalopram 10 mg Tablet PO (20:16)
[2020-11-15] MEDS: oxyCODONE 5 mg IR Tab/Cap PO (20:16)
[2020-11-16] VITALS (7 sets, daily range): BP systolic 143–169; BP diastolic 72–95; PULSE 60–73; RESP 16–20; TEMP 36.7–37.5; O2SAT 94–99
[2020-11-16] MEDS: doxycycline 100 MG in sodium chloride 0.9% (plus) 100 ML IV (04:09)
[2020-11-16] MEDS: enoxaparin 40 mg/0.4 mL Syringe SUBCUT (04:09)
[2020-11-16 05:12] LABS: Basophils % 0.4 %; Eosinophils # 0.1 10^3/uL (0.0-0.8); Eosinophils % 2.4 %; Hematocrit 39.1 % (42.0-52.0); Hemoglobin 13.4 g/dL (11.7-16.6); Mean Corpuscular HGB Conc 34.3 g/dL (30.0-36.0); Mean Corpuscular Hemoglobin 30.4 pg (28.0-34.0); Mean Corpuscular Volume 88.7 fL (80-94); Mean Platelet Volume 10.1 fL (7.4-10.4); Monocytes # 0.7 10^3/uL (0.2-0.9); Monocytes % 13.2 %; Neutrophils # 3.23 10^3/uL (1.8-7.7); Neutrophils % 63.8 %; Nucleated Red Blood Cells % 0 %; Platelet Count 204 10^3/cmm (130-400); Red Blood Count 4.41 10^6/uL (4.1-5.3); White Blood Count 5.1 10^3/uL (4.0-10.0)
[2020-11-16 05:38] LABS: Alanine Aminotransferase 52 U/L (0-41); Albumin Level 3.3 g/dL (3.5-5.2); Alkaline Phosphatase 76 IU/L (40-130); Anion Gap 12.7 (5-19); Aspartate Amino Transferase 60 U/L (0-40); Blood Urea Nitrogen 24 mg/dL (8-23); Calcium 9.2 mg/dL (8.5-10.5); Carbon Dioxide 26 mmol/L (22-29); Chloride 106 mmol/L (98-107); Globulin 2.4 g/dL (1.3-4.6); Glomerular Filtration Rate 46.4 mL/min (90-130); Glucose 140 mg/dL (65-115); Osmolality Calculated 298 mOsm/kg (285-295); Potassium 3.7 mmol/L (3.5-5.1); Sodium 141 mmol/L (136-145); Total Bilirubin 1.1 mg/dL (0.15-1.2); Total Protein 5.7 g/dL (6.6-8.7)
--- NOTE | 2020-11-16 06:24 | NUR.SHIFT ---
Patient mainly slept through the night. When this nurse was admin medications earlier, patient stated that he didn't feel well, but didn't elaborate any further and promptly fell back asleep.
[2020-11-16 06:26] LABS: Glucose Point of Care 125 mg/dL (70-110)
[2020-11-16] MEDS: oxyCODONE 5 mg IR Tab/Cap PO ×2 (08:06→21:15)
--- NOTE | 2020-11-16 09:55 | PM.PSYCN ---
Providers/Reason for Consult Consulting Physican/Specialty*: Chico Nelson DO Reason for Consult*: Worsening depression Attending Physician: Curtis Montana Primary Care Provider: Galilea Regalado MD Psych Consult HPI History of Present Illness Buck Tee is a 69 year old male with longstanding history of generalized anxiety, past history of polysubstance abuse for many decades, chronic pain recently presenting to the hospital with signs and symptoms consistent with delirium. Patient worked up by hospitalist team and ruled out for infectious etiology. Patient recently started on Wellbutrin in combination with Lexapro 20 mg as well as currently being treated with tramadol 4 times a day and oxycodone 4 times a day making serotonin symptoms or medication interaction a strong possibility. Patient has been lucid for greater than 24 hours with no perceptual disturbances, no delusions. Psychiatry consulted for evaluation and recommendations with regards to patient's worsening depressive symptoms over the past several years which has been exacerbated by his ongoing, worsening medical issues to include chronic pain and inability to work or support himself. Patient continues to report depressive symptoms including low mood, decreased energy and interest in his usual activities. Patient states that most days he will stay in bed except to go use the restroom and that his appetite has been poor in relation to his worsening mood symptoms. Patient states that he often has thoughts of not wanting to be around..... Not wanting to be a burden on his son. He denies any active intent or plan and states that he would not end his life because of his grandchildren and that ending his life is not an option. Patient's financial situation of having difficulty paying for medical care and his daily expenses also exacerbate his depressive symptoms. He communicates many ongoing negative, cognitive distortions. Patient states that the symptoms have been worse over the past several years but denies any previous major depressive episodes although he does report depressive symptoms in the context of multiple episodes of life stress which resolved after resolution of the stressor. Patient describes ups and downs throughout his life but is unable to describe any clear, discrete manic or hypomanic episodes which is further compounded by his lifelong use of substances starting around age 16 with marijuana and starting to use methamphetamine and heroin throughout his 20s with ongoing alcohol and substance use until approximately 4 years ago. He is unable to describe any period of longstanding sobriety until 4 years ago. He denies any psychiatric hospitalizations related to these ups and downs that would be indicative of a manic episode. Patient denies any past history until recent of perceptual disturbances outside of substance use; denies any pattern of disorganized speech or behavior or delusions. He reports longstanding history of anxiety all the way back to his late teens when he got his girlfriend in high school. States that most of his periods of anxiety have been exacerbated by acute stressors but more recently reports a more chronic, daily pattern of excessive worry and difficulty controlling his worrying although this is also directly related to ongoing financial and life stress. He also relates recent and intermittent panic symptoms and also reports past panic attacks. He denies any history of obsessions or compulsions. He denies any life-threatening trauma and denies any history of PTSD symptoms. His psychiatric review of systems is otherwise negative. Patient reports being trialed on many antidepressants with reportedly little effect. Unclear if patient was treated to maximal dosage. Patient reports past treatment with therapy but denies any recent therapy targeting his ongoing stressors to include chronic medical issues. Patient most recently treated with Lexapro 20 mg and started on Wellbutrin just prior to this hospitalization. He denies ever being treated with a low-dose antipsychotic for antidepressant augmentation. Patient reports supporting himself with his correction and states that his son, who lives locally, is his support system. Review of Systems General: Reports: 10 or more systems reviewed and unremarkable except in HPI and below Meds Current Medications: Current Medications Generic Name Dose Route Start Last Admin Trade Name Freq PRN Reason Stop Dose Admin Acetaminophen 650 mg 11/13/20 05:03 11/15/20 05:21 Acetaminophen 32 5 Mg Tablet PO 650 mg Q4H PRN Administration MILD PAIN Enoxaparin Sodium 40 mg 11/13/20 05:03 11/16/20 04:09 Enoxaparin 40 Mg /0.4 Ml Syringe SUBCUT 40 mg Q24H ANNE Administration Escitalopram Oxala te 10 mg 11/14/20 21:00 11/15/20 20:16 Escitalopram 10 Mg Tablet PO 10 mg BEDTIME ANNE Administration Dextrose/Sodium Ch loride 1,000 mls @ 50 ml s/hr 11/13/20 05:15 11/15/20 06:36 Dextrose 5%-Sod Chloride 0.45% IV 30 mls/hr .Q20H ANNE Administration Doxycycline Hyclat e 100 mg/ 100 mls @ 100 mls /hr 11/13/20 05:30 11/16/20 04:09 Sodium Chloride IV 100 mls/hr Q12H ANNE Administration Protocol Insulin Aspart 0 unit 11/13/20 08:00 11/16/20 08:21 Insulin Aspart 1 00 Unit/1 Ml SUBCUT Not Given WM&BEDTIME ANNE Protocol Oxycodone HCl 5 mg 11/14/20 16:53 11/16/20 08:06 Oxycodone 5 Mg I r Tab/Cap PO 5 mg Q6H PRN Administration MODERATE PAIN PFSH NPU PFSH: Medical History (Updated 11/16/20 @ 10:14 by Chico Nelson DO) Anxiety and depression Benign hypertension Chronic low back pain Chronic lumbar radiculopathy Controlled diabetes mellitus with hyperglycemia, without long-term current use of insulin DDD (degenerative disc disease), lumbar Encounter for long-term use of opiate analgesic Hypertriglyceridemia Opioid contract exists Vitamin D insufficiency Surgical History History of appendectomy History of colonoscopy 2016 History of squamous cell carcinoma excision Left hand 07/2019 Family History Mother Cancer Dementia Father Heart disease Social History Smoking and tobacco status: former smoker Second hand smoke exposure: No Smoking risk assessment/counseling performed?: Yes Alcohol intake: current Alcohol intake frequency: 0-2 Drinks per Day Alcohol type: beer Desire information about alcohol rehabilitation?: No (PATIENT CURRENTLY DENIES USE 01/06/2020) Counseling given: No Desire information about substance/drug rehabilitation?: No Counseling given: No Caregiver/support person: No Lives independently: Yes Marital status: History of recent travel: No Current gender identity: Male Other Psychiatric History: Other Psychiatric History: Reports past treatment with psychotropic medication, most recently treated by primary care for depression and anxiety Denies any history of psychiatric hospitalizations Denies any history of suicide attempts or self-harm behavior Mental Status Exam MSE Comments: Appears older than stated age, disheveled, unkempt, bearded, sitting up in bed, calm, occasionally irritable but cooperative with interview, good eye contact Psychomotor activity is neither increased nor decreased, no agitation Speech is normal rate and volume, spontaneous, clear articulation, not pressured I feel depressed, congruent affect, not labile Alert and oriented to person, place, time, situation Remote memory is good, recent memory fair per interview Concentration appears to be intact cranially Intellectual functioning appears to be average based on vocabulary, interview Thought process, linear, no flight of ideas, no looseness of associations Thought content, no delusions, no hallucinations, does not appear to be attending to any internal stimuli, no suicidal or homicidal ideation Insight and judgment appear to be intact Vitals/I&O/Wt Last Vital Signs Temp 98.6 F 11/16/20 08:00 Pulse 73 11/16/20 08:00 Resp 17 11/16/20 08:06 BP 152/91 11/16/20 08:00 Pulse Ox 94 11/16/20 08:06 11/15/20 11/16/20 11/16/20 22:59 06:59 14:59 Intake Total 220 / 944 230 / 1174 240 / 240 Output Total 700 / 900 600 / 1500 450 / 450 Balance -480 / 44 -370 / -326 -210 / -210 Data NPU Micro: Micro: Microbiology 11/13/20 09:25 Gram Stain - Final Cerebrospinal Flu id CSF Culture - Prel iminary Microbiology 11/13/20 09:25 Cerebrospinal Fluid Gram Stain - Final 11/13/20 09:25 Cerebrospinal Fluid CSF Culture - Preliminary A&P Assessment and plan (1) Major depressive disorder, recurrent: Status: Acute (2) Generalized anxiety disorder: Status: Acute Additional A&P Information 69-year-old male recently presenting to the hospital with delirium which has resolved with history of depression and anxiety and history of polysubstance abuse with chronic pain treated with tramadol and oxycodone 4 times daily continues to report daily depressive symptoms causing significant impairment. Patient was recently augmented with Wellbutrin in the context of above management for chronic pain possibly leading to medication interaction and delirium. Currently denies any suicidal ideation but continues to report severe depressive symptoms and would likely benefit from augmenting with low-dose antipsychotic medication targeting his depressive symptoms. Patient's clinical picture compounded by ongoing, chronic pain and chronic medical issues as well as ongoing financial stressors which exacerbate his depressive and anxiety symptoms as demonstrated by his ongoing negative, cognitive distortions which would likely benefit from therapy. Patient would likely benefit from ongoing monitoring for serotonin symptoms given his ongoing management of chronic pain with tramadol and would likely benefit from avoiding any unnecessary addition of benzodiazepines, anticholinergic medication or use of trazodone as a sleep aid which could potentiate future medication interactions. Although patient does not present an imminent threat of harm to self, he would likely benefit from psychiatric hospitalization after medical stabilization for medication stabilization. Patient reports currently being hesitant with any extended hospital stay secondary to concerns about financial stress. Outpatient medication management and therapy of the least restrictive, and appropriate level of care after medical stabilization. Psychiatry will continue to follow during this hospitalization. START risperidone 0.25 mg by mouth in the evening for augmentation of antidepressant targeting depressive symptoms CONTINUE escitalopram 20 mg daily by mouth for depression anxiety RECOMMEND coordination with social work and financial counselor to address patient's ongoing social and financial stressors which directly exacerbated his symptoms Attestations NPU Medical Necessity Statement*: Patient continues require hospitalization for medical stabilization. Time Spent in Patient Care: Greater than 35 minutes (>than 50% of time spent in counselling and/or direct pt care on unit). Coding Level of Care Code Acute Clutch Operator for Екатерина Castillo Diagnoses Major depressive disorder, recurrent F33.9 Generalized anxiety disorder F41.1
[2020-11-16 11:04] LABS: Glucose Point of Care 188 mg/dL (70-110)
--- NOTE | 2020-11-16 11:30 | DCPLANNER ---
IMM completed on 11/16/20 @ 1202. Copy of rights given to pt.
[2020-11-16 13:44] LABS: Anti-Nuclear Antibody Screen NEGATIVE (NEGATIVE)
--- NOTE | 2020-11-16 14:59 | PC.NURSE ---
Received report from Simona Pineda, assumed care of patient.
[2020-11-16] MEDS: risperiDONE 0.25 mg Tablet PO (16:56)
[2020-11-16] MEDS: doxycycline 100 mg Tablet PO (16:56)
[2020-11-16 17:05] LABS: Glucose Point of Care 130 mg/dL (70-110)
--- NOTE | 2020-11-16 17:54 | PM.PN ---
Subjective Subjective: Interval history: Today he is feeling about the same. He denies any recurrence of the hallucinations or vivid dreams. He denies any headache, vision changes, dizziness, nausea vomiting, shortness of breath, chest pain or pressure, any new rash, or any other new symptoms. We discussed little further with him regarding liver parameter abnormality, for now continuation of empiric doxycycline, pending take studies. He does report he had multiple tick bites within the last several years, although does not recall any obvious ones in the last several months. We also discussed findings on ultrasonography, including liver cirrhosis, as well as positive hepatitis studies with what appears to be history of hepatitis B, as well as past or possibly still current hepatitis C infection. He reports he is not very much surprised about chronic liver disease given he states he had caused his liver quite a bit of abuse in the past. He is aware of previously being diagnosed with hepatitis, and says that even had a biopsy before, and was told that hepatitis was in remission, however, is not sure whether this was hepatitis B or C. He does report that he has been feeling quite depressed. He is feeling anxious about returning as he feels he has not had any motivation recently to do anything, and is concerned he may lack sufficient motivation to get himself to go to therapy sessions. He is concerned also regarding financial side of his medical care, and is happy to hear that case management to further discuss regarding his insurance and financial aspect of the hospitalization and post hospital care. He states that he had a very good discussion with the psychiatrist earlier today and is being started on a new additional medication for depression. He states that he will consider, and may be agreeable for additional psychiatric inpatient treatment. Alternatively he may consider staying with his son a while longer, as he otherwise is somewhat reluctant to return home alone at this time. Vitals/I&O/Wt Last Vital Signs Temp 98.8 F 11/16/20 16:00 Pulse 64 11/16/20 16:00 Resp 20 H 11/16/20 16:00 BP 143/79 11/16/20 16:00 Pulse Ox 97 11/16/20 16:00 11/16/20 11/16/20 11/16/20 06:59 14:59 22:59 Intake Total 230 / 1174 600 / 600 Output Total 600 / 1500 950 / 950 Balance -370 / -326 -350 / -350 Physical Exam Const: COMMON NORMALS: no acute distress, patient oriented x3 and alert ORIENTATION/CONSCIOUSNESS: Yes oriented to person, Yes oriented to place, Yes oriented to time and Yes patient obtunded OTHER: Awake, alert, oriented, pleasant, conversant. HENMT: COMMON NORMALS: oropharynx normal Neck/C-Spine: COMMON NORMALS: no meningeal signs and no JVD Resp: COMMON NORMALS: normal respiratory effort and clear to auscultation bilaterally AUSCULTATION: clear to auscultation bilaterally Cardio: COMMON NORMALS: no JVD, regular rhythm, S1 normal heart sound present, S2 normal heart sound present and No murmurs present (Cardio) RHYTHM: regular rhythm HEART SOUNDS: S1 normal heart sound present and S2 normal heart sound present GI: COMMON NORMALS: Normal to inspection, nondistended, normoactive bowel sounds present, Soft to palpation and non-tender PALPATION: Yes Soft to palpation Extremity: COMMON NORMALS: no joint enlargement and no pedal edema Neuro: COMMON NORMALS: patient oriented x3 and moves all extremities SENSORIUM/ORIENTATION: Yes alert, Yes oriented to person, Yes oriented to place and Yes oriented to time MENINGEAL SIGNS: Yes no meningeal signs SPEECH: speech normal SENSORY EXAM: Yes Normal double simultaneous stimulation for sensation MOTOR EXAM: 5/5 motor strength present throughout OTHER: Awake, alert, lucid. Depressed mood. No clonus. Brudzinski and Kernig negative. Psych: OTHER: Minimal anxious, although mostly appears calm. Somewhat perseverating on the negatives. Skin: LESIONS: lesion noted (Multiple excoriations, scabs over the body. 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 We are monitoring of vancomycin, Rocephin and of acyclovir. For now continues empirically on doxycycline pending tick studies. Reports several tick bites within the last several years, although none that he knows of in the last several months. If mental status remains stable, possible discharge tomorrow with outpatient follow-up, although depending on his wishes regarding additional psychiatric hospitalization. Severe encephalopathy has improved. Delirium has resolved. He is feeling depressed. Lacking motivation. Has not had any headache, or any complaints of symptoms of focal neurologic abnormalities. No growth on CSF culture. CSF studies not particularly remarkable, with mildly elevated protein, possibly secondary to diabetes. Pending additional serologies including [place] Nile virus, [place] encephalitis. Pending oligoclonal bands. He is aware and understands low possibility of partially treated bacterial meningitis with unremarkable CSF due to obtaining it sometime after antibiotics have been initiated (a little over 24 hours), however, the rather short duration of antibiotics before September was obtained, and his rapid improvement would rather suggest against bacterial [employer]SIDE infection. Pending serum cryoglobulins, although otherwise does not appear to show symptoms to suggest vasculitis or hyperviscosity. ANGELA is negative. Possible medication adverse reaction with Wellbutrin. Would stay away from this. Attempt to taper down tramadol if possible. Discontinue trazodone, although he has not been taking this recently. T bili elevation has resolved. There is mild transaminitis. No thrombocytopenia. Tick studies are pending. For now continue empiric doxycycline. Rapid COVID-19 negative. TSH is noted normal. Vitamin B12 normal. Ammonia was normal. Cirrhosis noted on right upper quadrant ultrasound. Ammonia normal. Possible sepsis resolved. Appreciate psychiatry consultation regarding management of his severe depression. Status: Acute (2) Delirium due to general medical condition: As above. Status: Acute (3) Altered mental status: As above. Status: Acute Additional A&P Information AILYN: Appears as stabilized. Monitoring off antibiotics. Recheck renal function. Continue gentle IV fluid challenge. Bilirubin elevation: Resolved. No abdominal pain. No suggestion of hemolysis. Ultrasound with noted changes of cirrhosis without bile duct dilation. No cholelithiasis. Diffuse mild gallbladder wall thickening thought to be secondary to hepatocellular disease. Follow-up on outpatient side. Liver cirrhosis incidentally noted on ultrasonography. He states was not aware of cirrhosis. Ammonia is normal. Discussed with him extensively about cirrhosis, possible etiologies, risks of associated complications, need for future follow-up reassessments with PCP, as well as additional assessment regarding whether hepatitis C is still an active infection which could benefit from treatment. He verbalized understanding, and will be following up with his primary care provider. B core antibody positive. Hep B surface antibody positive. Noted. His B surface antigen negative. C antibody positive noted. Bipolar disorder. Discussed all of the above again in detail with his son. He states his father can stay with him anytime and will help him with any additional needed follow up. Attestations Medical Necessity Statement*: Continue admission for assessment of management of episode of encephalopathy, delirium, monitoring of anti-infective agents, optimization of treatment of severe depression, post discharge planning. 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
[2020-11-16] MEDS: dextrose 5%-sod chloride 0.45% 1,000 ML 30 ML IV (18:01)
[2020-11-16 19:59] LABS: Glucose Point of Care 232 mg/dL (70-110)
[2020-11-16] MEDS: escitalopram 10 mg Tablet PO (21:16)
[2020-11-17] VITALS: BP 153/79; PULSE 65; RESP 18; TEMP 36.4; O2SAT 97
[2020-11-17] MEDS: acetaminophen 325 mg Tablet 650 MG PO (01:00)
[2020-11-17 04:00] VITALS: BP 136/78; PULSE 61; RESP 19; TEMP 36.8; O2SAT 95
[2020-11-17 04:27] LABS: Basophils % 0.7 %; Eosinophils % 0.5 %; Hemoglobin 13.1 g/dL (11.7-16.6); Lymphocytes # 0.8 10^3/uL (0.8-4.8); Mean Corpuscular HGB Conc 33.6 g/dL (30.0-36.0); Mean Corpuscular Hemoglobin 30.5 pg (28.0-34.0); Mean Corpuscular Volume 90.9 fL (80-94); Monocytes # 0.6 10^3/uL (0.2-0.9); Monocytes % 10.8 %; Neutrophils # 4.29 10^3/uL (1.8-7.7); Neutrophils % 73.3 %; Nucleated Red Blood Cells % 0 %; Platelet Count 202 10^3/cmm (130-400); Red Blood Count 4.29 10^6/uL (4.1-5.3); Red Cell Distribution Width 12.9 % (12.1-15.1); White Blood Count 5.9 10^3/uL (4.0-10.0)
[2020-11-17 04:55] LABS: Alanine Aminotransferase 45 U/L (0-41); Alkaline Phosphatase 73 IU/L (40-130); Anion Gap 14.5 (5-19); Aspartate Amino Transferase 42 U/L (0-40); Blood Urea Nitrogen 26 mg/dL (8-23); Carbon Dioxide 26 mmol/L (22-29); Chloride 105 mmol/L (98-107); Globulin 2.6 g/dL (1.3-4.6); Glomerular Filtration Rate 54.7 mL/min (90-130); Glucose 166 mg/dL (65-115); Osmolality Calculated 301 mOsm/kg (285-295); Potassium 4.5 mmol/L (3.5-5.1); Sodium 141 mmol/L (136-145); Total Protein 5.6 g/dL (6.6-8.7)
[2020-11-17 04:58] LABS: Ammonia 23 umol/L (16-60)
[2020-11-17] MEDS: enoxaparin 40 mg/0.4 mL Syringe SUBCUT (04:58)
[2020-11-17] MEDS: doxycycline 100 mg Tablet PO (05:00)
[2020-11-17 06:25] LABS: Glucose Point of Care 142 mg/dL (70-110)
[2020-11-17 07:41] VITALS: BP 143/83; PULSE 75; RESP 16; TEMP 36.6; O2SAT 96
[2020-11-17 10:55] LABS: Glucose Point of Care 219 mg/dL (70-110)
[2020-11-17 10:59] VITALS: BP 167/90; PULSE 74; RESP 16; TEMP 36.6; O2SAT 97
--- NOTE | 2020-11-17 11:45 | PM.PSYCN ---
Providers/Reason for Consult Consulting Physican/Specialty*: Chico Nelson DO Reason for Consult*: Follow-up Attending Physician: Curtis Montana Primary Care Provider: Galilea Regalado MD Psych Consult HPI History of Present Illness Continues to report significant depressive symptoms, -05/04, denies any interval suicidal ideation Continues to report significant anxiety symptoms, 07/05, reports occasional panic symptoms that are transient, denies any interval panic attacks, reports feeling somewhat anxious about recent events Denies any interval perceptual disturbances, no hallucinations, no delusions Reports some improvement in appetite, reports some improvement in sleep, reports some vivid dreams, no nightmares Reports tolerating medication well, denies any medication side effects Meds Current Medications: Current Medications Generic Name Dose Route Start Last Admin Trade Name Freq PRN Reason Stop Dose Admin Acetaminophen 650 mg 11/13/20 05:03 11/17/20 01:00 Acetaminophen 32 5 Mg Tablet PO 650 mg Q4H PRN Administration MILD PAIN Doxycycline Monohy drate 100 mg 11/16/20 18:00 11/17/20 05:00 Doxycycline 100 Mg Tablet PO 100 mg Q12H ANNE Administration Enoxaparin Sodium 40 mg 11/13/20 05:03 11/17/20 04:58 Enoxaparin 40 Mg /0.4 Ml Syringe SUBCUT 40 mg Q24H ANNE Administration Escitalopram Oxala te 10 mg 11/14/20 21:00 11/16/20 21:16 Escitalopram 10 Mg Tablet PO 10 mg BEDTIME ANNE Administration Dextrose/Sodium Ch loride 1,000 mls @ 50 ml s/hr 11/13/20 05:15 11/16/20 18:01 Dextrose 5%-Sod Chloride 0.45% IV 30 mls/hr .Q20H ANNE Administration Insulin Aspart 0 unit 11/13/20 08:00 11/17/20 09:54 Insulin Aspart 1 00 Unit/1 Ml SUBCUT 4 unit WM&BEDTIME ANNE Administration Protocol Oxycodone HCl 5 mg 11/14/20 16:53 11/16/20 21:15 Oxycodone 5 Mg I r Tab/Cap PO 5 mg Q6H PRN Administration MODERATE PAIN Risperidone 0.25 mg 11/16/20 18:00 11/16/20 16:56 Risperidone 0.25 Mg Tablet PO 0.25 mg QPM ANNE Administration PFSH NPU PFSH: Medical History (Updated 11/16/20 @ 10:14 by Chico Nelson DO) Anxiety and depression Benign hypertension Chronic low back pain Chronic lumbar radiculopathy Controlled diabetes mellitus with hyperglycemia, without long-term current use of insulin DDD (degenerative disc disease), lumbar Encounter for long-term use of opiate analgesic Hypertriglyceridemia Opioid contract exists Vitamin D insufficiency Surgical History History of appendectomy History of colonoscopy 2015 History of squamous cell carcinoma excision Left hand 07/2019 Family History Mother Cancer Dementia Father Heart disease Social History Smoking and tobacco status: former smoker Second hand smoke exposure: No Smoking risk assessment/counseling performed?: Yes Alcohol intake: current Alcohol intake frequency: 0-2 Drinks per Day Alcohol type: beer Desire information about alcohol rehabilitation?: No (PATIENT CURRENTLY DENIES USE 01/06/2020) Counseling given: No Desire information about substance/drug rehabilitation?: No Counseling given: No Caregiver/support person: No Lives independently: Yes Marital status: History of recent travel: No Current gender identity: Male Mental Status Exam MSE Comments: Lying in bed, calm, cooperative, interactive, good eye contact Psychomotor activity is neither increased nor decreased, no agitation Speech is normal rate and volume, spontaneous, clear articulation, not pressured Feeling better, somewhat constricted affect, not labile Alert and oriented to person, place, time, situation Memory and concentration appear to be intact primary Thought process, linear Thought content, no delusions, no hallucinations, no suicidal or homicidal ideation Insight and judgment appear to be intact Vitals/I&O/Wt Last Vital Signs Temp 97.9 F 11/17/20 10:59 Pulse 74 11/17/20 10:59 Resp 16 11/17/20 10:59 BP 167/90 11/17/20 10:59 Pulse Ox 97 11/17/20 10:59 11/16/20 11/17/20 11/17/20 22:59 06:59 14:59 Intake Total 1480 / 2080 400 / 2480 360 / 360 Output Total 800 / 1750 300 / 2050 500 / 500 Balance 680 / 330 100 / 430 -140 / -140 Data NPU Micro: Micro: Microbiology 11/13/20 09:25 Gram Stain - Final Cerebrospinal Flu id CSF Culture - Luanne l Microbiology 11/13/20 09:25 Cerebrospinal Fluid Gram Stain - Final 11/13/20 09:25 Cerebrospinal Fluid CSF Culture - Final A&P Assessment and plan (1) Generalized anxiety disorder: Status: Acute (2) Major depressive disorder, recurrent: Status: Acute Additional A&P Information Continues reports significant depressive and anxiety symptoms, denies any current suicidal ideation, continues to have some anxiety with regards to recent events leading to his hospitalization. Tolerating medication well with no reported medication side effects. Continues to have clear sensorium. CONTINUE current medication, continue to monitor Psychiatry will continue to follow during this hospitalization Attestations NPU Medical Necessity Statement*: Patient continues require medical stabilization Time Spent in Patient Care: 16 - 35 minutes (>than 50% of time spent in counselling and/or direct pt care on unit). Coding Level of Care Code Acute Vba Developer for Екатерина Castillo Diagnoses Generalized anxiety disorder F41.1 Major depressive disorder, recurrent F33.9
--- NOTE | 2020-11-17 14:38 | P.DS_ITS ---
Discharge Providers Date of Admission: 11/13/20 03:12 Date of Discharge: November 17, 2020 Attending Provider at Admission: Bárbara Hathaway MD Attending Provider at Discharge: Curtis Montana Primary Care Provider: Galilea Regalado MD Diagnoses at Discharge Discharge Diagnosis (1) Generalized anxiety disorder: Status: Acute (2) Major depressive disorder, recurrent: Status: Acute (3) Meningoencephalitis: Status: Acute (4) Delirium due to general medical condition: Status: Acute (5) Altered mental status: Status: Acute (6) Liver cirrhosis: Status: Acute (7) Hepatitis C: Status: Acute (8) AILYN (acute kidney injury): Status: Acute Reason for Visit Reason for Visit: [facility] Hospital Course Hospital Course 69-year-old gentleman with history of depression, anxiety, remote history of polysubstance drug abuse, with worsening depression in several months, Lexapro, recently augmented with Wellbutrin, also with chronic pain, chronic oxycodone and tramadol 4 times a day, within several days of admission has been experiencing hallucinations and vivid dreams, confusion, unsure of what is reality is and what is dreaming. The dreams made him fall out of his house, he was dreaming he was going to be bushes, later woke up after having controlled on [place] nearby his car. Sustained multiple abrasions on upper and lower extremities which were noted during admission and have been healing well. No strokelike symptoms or seizure-like activity was noted prior to admission. He reportedly came to ER on Thursday, and Wellbutrin was discontinued at that time. He continued on other medications. He has not been taking trazodone or Seroquel. There has been no recent drug abuse. There is only infrequent alcohol intake. On presentation with noted agitation, altered mental status. Received Ativan, Haldol. Subsequently with resolution of agitation, but then prolonged condition, as well as fever noted in the hospital 101.3 Fahrenheit. Delirium on admission with acute encephalopathy possibly secondary to medication reaction with Wellbutrin, on Lexapro, and also in the setting of chronic large daily doses of tramadol. Due to possible infectious meningoencephalitis was started empirically on antibiotics with Rocephin, vancomycin, also empiric coverage with doxycycline, as well as acyclovir. Head CT from the before with no acute intracranial hemorrhage or edema. Mild atrophy with moderate to severe chronic microvascular ischemic changes. Chest x-ray revealed no acute cardiopulmonary process. With noted mild T bili elevation at 2. Alk phos norm al. Minimal AST and ALT elevation 57, 53. Due to hepatobiliary abnormality was assessed by abdominal ultrasound, with finding of changes of cirrhosis, without bile duct dilation. No cholelithiasis. Diffuse mild gallbladder wall thickening is probably due to hepatocellular disease. Hepatitis panel with nonreactive hepatitis B antigen, with positive hepatitis B antibody, with reactive hepatitis B core total antibody. Reactive hepatitis C antibody. On presentation also assessed with TSH which was normal. Vitamin B12 was normal. Urinalysis unremarkable. Urine drug screen unremarkable. Rapid COVID-19 antigen checked during the hospitalization was negative. Lumbar puncture initially cannot be obtained due to agitation, subsequently obtained after about 24 hours of antibiotic therapy. CSF not impressive for bacterial infection. 3 WBC. No polymorphonuclears. Glucose 93. Protein mildly elevated at 58 (top normal 45) likely due to diabetes. No organisms on Gram stain or culture. Additional studies sent for serology for West Nile virus, Dorado encephalitis, as well as take studies (patient later reports history of tick bites in the last several years, though none that he had noticed in the last few months). Oligoclonal bands were also ordered. In addition due to hepatitis, ANGELA, cryoglobulins were requested. ANGELA was normal. Cryoglobulins are pending. He otherwise does not appear to show signs of vasculitis. He initially woke up requesting for some water on evening on 11/13, then slept through the night, and was alert and oriented on the morning of 11/14. He was able to describe his symptoms of hallucinations, confusion. Did not have much recollection after that. He had no headache, no vision changes. No numbness. No weakness. No focal neurologic abnormalities. There were no speech deficits. He underwent assessment by MRI which was not remarkable, apart from moderate to severe chronic white matter ischemic changes both confluent and patchy likely secondary to small vessel ischemic disease. No masses. Incidentally noted bilateral mastoiditis, although otherwise asymptomatic. He remained lucid from thereon. With unremarkable LP, also with noted acute kidney injury, creatinine up to 1.5, antibiotics including vancomycin were discontinued apart from doxycycline. Tick panel is also requested. Heat for now continue to empirically on doxycycline and complete course unless tick panel comes back entirely negative. He does not recall any tick bites, although was scrolling through some bushes as noted earlier. He noted severe depression symptoms. Due to this was assessed by psychiatry, with recommendation for additional follow-up as well as therapy which would be beneficial for him. He was continued on Lexapro, also started on risperidone for augmentation both of which he tolerated well. Additional inpatient assessment and treatment was offered for him, however, on consideration and further discussion with his family he preferred to return home and pursue outpatient follow-up. Due to financial concerns he was also seen by case management. We had multiple detailed extensive discussions with regards to possible etiologies of his delirium episode, fever. We still cannot exclude the possibility that this may have been a medication reaction, possibly early serotonin-like syndrome. Certainly there is high potential for interaction and at least contribution to encephalopathy with a combination of medications he was on. Due to this Wellbutrin is recommended to be discontinued. He is also recommended not to return to trazodone. As well if possible it is recommended he taper down tramadol dosing. We also extensively considered possibility of infectious and encephalitis. Including even small possibility of undertreated bacterial meningitis given 24 hours of antibiotics prior to LP, although possibility of this is rather small, and he was additionally monitored for 2 more days after discontinuation of antibiotic in the hospital. He has done well without any recurrence of encephalopathy or fever. Additional viral studies are pending, although they are not likely to change his management further. Oligocl onal bands are pending. ESR also cryoglobulins, although both are less likely to be the cause of his symptoms. Tick studies are still pending, please follow- up, and discontinue doxycycline if negative. With new diagnosis of cirrhosis, we also assessed ammonia, although this was normal. He is advised to follow-up with neurology in office for reevaluation, and recommendation regarding whether any additional assessments may be of benefit. We had extensive discussion with both him and his son regarding liver cirrhosis, and potential adverse effects, as well as need for additional diagnostic tests and regular follow-up, including regular ultrasound tests, as well as endoscopic evaluation for gastric varices. We also discussed additional evaluation he would benefit from with regards to hepatitis C to exclude active disease, in which case he would benefit from treatment/eradication. We also discussed to watch out for any potential adverse effects, including symptoms of hepatic encephalopathy which may prompt need for assessment and treatment of hyperammonemia. Due to his depression, at this time he prefers not to return home, and his son has kindly agreed for his father to continue stay with him and states it will be no problem for him to assist him with attending his follow-up and specialist appointments. Please note if you his medications been adjusted due to acute kidney injury and transaminitis. Please reassess, and resume prior dosing if needed when safe. Please see full evaluation notes from the hospitalization for details. Do not hesitate to reach out with questions. Physical Exam Const: COMMON NORMALS: no acute distress, patient oriented x3 and alert ORIENTATION/CONSCIOUSNESS: Yes oriented to person, Yes oriented to place, Yes oriented to time and Yes patient obtunded OTHER: Awake, alert, polite, conversant. Minimal if any anxiety. HENMT: COMMON NORMALS: oropharynx normal Neck/C-Spine: COMMON NORMALS: no meningeal signs and no JVD Resp: COMMON NORMALS: normal respiratory effort and clear to auscultation bilaterally AUSCULTATION: clear to auscultation bilaterally Cardio: COMMON NORMALS: no JVD, regular rhythm, S1 normal heart sound present, S2 normal heart sound present and No murmurs present (Cardio) RHYTHM: regular rhythm HEART SOUNDS: S1 normal heart sound present and S2 normal heart sound present GI: COMMON NORMALS: Normal to inspection, nondistended, normoactive bowel sounds present, Soft to palpation and non-tender PALPATION: Yes Soft to palpation Extremity: COMMON NORMALS: no joint enlargement and no pedal edema Neuro: COMMON NORMALS: patient oriented x3 and moves all extremities SENSORIUM/ORIENTATION: Yes alert, Yes oriented to person, Yes oriented to place and Yes oriented to time MENINGEAL SIGNS: Yes no meningeal signs SPEECH: speech normal SENSORY EXAM: Yes Normal double simultaneous stimulation for sensation MOTOR EXAM: 5/5 motor strength present throughout OTHER: Awake, alert, lucid. Depressed mood. No clonus. Brudzinski and Kernig negative. Psych: OTHER: Minimally anxious, although mostly appears calm. Somewhat perseverating on the negatives. Skin: LESIONS: lesion noted (Healing excoriations/abrasions on upper and lower extremities. No fresh wo) Discharge Data Data Completed and Pending: Completed Studies During Hospitalization Category Date Time Status FL guided lumbarp pending sale to [facility] dx* [id number] Rout ine Exams 11/14/20 08:45 Completed XR chest 1V kiko ble [id number] Urgent Exams 11/13/20 00:32 Completed MR head wo/w con [id number] Routine MRI 11/14/20 15:10 Completed [place] abdomen limite d [id number] Routine Ultrasound 11/13/20 12:54 Completed Pending at discharge Category Date Time Status ANGELA Screen w/ Ref makenzie Routine Lab 11/15/20 05:20 Results Adenosine Deamina se CSF Routine Lab 11/14/20 09:25 Received Blood Culture Sta t Lab 11/13/20 05:45 Results Cryoglobulins Rupert litative Routine Lab 11/15/20 16:56 Received Lymes Disease Ant ibodies CSF Routin e Lab 11/14/20 09:25 Received Oligoclonal Bands IGG, CSF Routine Lab 11/14/20 09:25 Received [place]ado Enceph. Virus IFA CSF Rout ine Lab 11/14/20 09:25 Received VDRL on CSF Routi ne Lab 11/14/20 09:25 Received West Nile Virus A B Panel,CSF Routin e Lab 11/14/20 09:25 Received Labs from last 24 hours 11/17/20 11/17/20 11/17/20 10:39 06:19 04:14 WBC RBC Hgb Hct MCV MCH MCHC RDW Plt Count MPV Neut % (Auto) Lymph % (Auto) [place] % (Auto) Eos % (Auto) Baso % (Auto) Neut # (Auto) Lymph # (Auto) [place] # (Auto) Eos # (Auto) Baso # (Auto) Nucleated RBC % (a uto) Nucleated RBCs # Sodium Potassium Chloride Carbon Dioxide Anion Gap BUN Creatinine GFR Calculation Glucose POC Glucose 219 H 142 H Calculated Osmolal ity Calcium Total Bilirubin AST ALT Alkaline Phosphata se Ammonia 23 Total Protein Albumin Globulin 11/17/20 11/17/20 11/16/20 04:14 04:14 19:45 WBC 5.9 RBC 4.29 Hgb 13.1 Hct 39.0 L MCV 90.9 MCH 30.5 MCHC 33.6 RDW 12.9 Plt Count 202 MPV 10.0 Neut % (Auto) 73.3 Lymph % (Auto) 14.0 [place] % (Auto) 10.8 Eos % (Auto) 0.5 Baso % (Auto) 0.7 Neut # (Auto) 4.29 Lymph # (Auto) 0.8 [place] # (Auto) 0.6 Eos # (Auto) 0.0 Baso # (Auto) 0.0 Nucleated RBC % (a uto) 0 Nucleated RBCs # 0.0 Sodium 141 Potassium 4.5 Chloride 105 Carbon Dioxide 26 Anion Gap 14.5 BUN 26 H Creatinine 1.3 H GFR Calculation 54.7 L Glucose 166 H POC Glucose 232 H Calculated Osmolal ity 301 H Calcium 9.0 Total Bilirubin 1.0 AST 42 H ALT 45 H Alkaline Phosphata se 73 Ammonia Total Protein 5.6 L Albumin 3.0 L Globulin 2.6 11/16/20 16:54 WBC RBC Hgb Hct MCV MCH MCHC RDW Plt Count MPV Neut % (Auto) Lymph % (Auto) [place] % (Auto) Eos % (Auto) Baso % (Auto) Neut # (Auto) Lymph # (Auto) [place] # (Auto) Eos # (Auto) Baso # (Auto) Nucleated RBC % (a uto) Nucleated RBCs # Sodium Potassium Chloride Carbon Dioxide Anion Gap BUN Creatinine GFR Calculation Glucose POC Glucose 130 H Calculated Osmolal ity Calcium Total Bilirubin AST ALT Alkaline Phosphata se Ammonia Total Protein Albumin Globulin Vitals: Last Vital Signs Temp 97.9 F 11/17/20 10:59 Pulse 74 11/17/20 10:59 Resp 16 11/17/20 10:59 BP 167/90 11/17/20 10:59 Pulse Ox 97 11/17/20 10:59 Discharge Plan Discharge Patient Disposition: Home Condition: Stable Prescriptions: New doxycycline hyclate 100 mg capsule 100 mg PO BID 9 Days Qty: 18 RF: 0 risperidone 0.25 mg Tablet 0.25 mg PO QPM Qty: 30 RF: 0 amlodipine 5 mg tablet 5 mg PO DAILY Qty: 30 RF: 0 Continued oxycodone 5 mg tablet 5 mg PO QID PRN (Reason: pain) 30 Days Qty: 120 RF: 0 multivitamin Tablet 1 tab PO DAILY@10 RF: 0 acetaminophen [Tylenol Extra Strength] 500 mg Tablet 1,000 mg PO PRN RF: 0 vitamin B complex Tablet 1 tab PO DAILY RF: 0 saw palmetto 500 mg Capsule 1,000 mg PO BID RF: 0 coenzyme Q10 [CoQ-10] 100 mg Capsule 100 mg PO DAILY RF: 0 digestive enzymes (plant) 55 mg Capsule 55 mg PO DAILY RF: 0 tramadol 50 mg tablet 50 mg PO QID RF: 0 metformin 500 mg tablet extended release 24 hr 1,000 mg PO BID@, RF: 0 escitalopram oxalate [Lexapro] 20 mg tablet 20 mg PO BEDTIME RF: 0 Januvia 100 mg tablet 100 mg PO DAILY@10 RF: 0 Held losartan 100 mg tablet 100 mg PO DAILY RF: 0 Hold Instructions: Resume on 12/01/20. fenofibrate nanocrystallized 145 mg tablet 145 mg PO DAILY RF: 0 Hold Instructions: Resume on 12/01/20. Discontinued quetiapine [Seroquel] 300 mg Tablet See Rx Instructions .ROUTE .COMPLEX RF: 0 trazodone 50 mg Tablet See Rx Instructions .ROUTE .COMPLEX RF: 0 Discharge Orders: Discharge Order (Routine); Ordered 11/17/20 Ordered By: Curtis Montana Referrals: [facility] [Provider Group] - 4-7 days [facility] [Provider Group] - 1 week Ana Plaza MD [Physician] - 2 weeks (encephalopathy/delirium episode, fever ILENE Hernandez will call you Thursday to set up an appointment to be seen in approximately 2 weeks. ) Galilea Regalado MD [Primary Care Provider] - 4-7 days (episode of delirium, fever, depression, liver cirrhosis and hepatitis C needing further testing and follow up ILENE Mar will call you Thursday to set up an appointment.) Discharge Diet: Diabetic Discharge Activity: Increase activity as tolerated Patient Instructions: Risperidone (By mouth), Tramadol (By mouth), Escitalopram (By mouth), Hepatitis B, Hepatitis C, Cirrhosis (GEN), Acute Kidney Injury (GEN), Depression (GEN) Activity Restrictions/Additional Instructions: Please continue Lexapro as recommended by psychiatry, as well as the new medication prescribed to augment its effect, risperidone, please follow-up with psychiatry on outpatient side, as well as therapists which will help greatly in treatment of depression. If at any point you feel worsening depression, any thoughts of self-harm or ending her life, please seek medical attention immediately. If possible please reduce the amount of tramadol taken in a day, as this medication in some cases may interact with antidepressant medications, leading in some cases to complications like serotonin syndrome, sometimes seizures, etc. If at any point you are noted to experience any confusion, or are having any severe headache, any fever, or any other abnormal symptoms, please seek medical attention in case any additional episodes may be related to the episode of encephalopathy and delirium, possible meningoencephalitis, which were noted during this admission. Please follow-up with neurology for additional assessment. Please note that some studies are still pending from the cerebrospinal fluid, including take studies, viral encephalitis studies, oligoclonal bands. Also pending is cryoglobulin level. Please discuss with your primary care physician and neurologist so that they may follow-up on these studies. Please follow-up with your primary care doctor with regards to liver cirrhosis. This will need additional assessment including endoscopic evaluation of your stomach once he recovered from the current acute illness. This will also require regular follow-up ultrasound assessments, and other regular follow-up. Please also be aware of possibility of ammonia buildup, and in case there is any confusion or mental status changes in the future, this will need to be assessed as well, and if found elevated may need treatment. Please have your primary care physician also follow-up regarding hepatitis C, to assess whether this is still an active infection, in which case this would benefit from treatment/eradication to prevent further injury to the liver, reduce risk of liver cancer, etc. Please note during the hospitalization you were noted to have mild acute kidney injury. This is improving (Creatinine 1.3, normal less than 1.2). Please have your primary care physician follow-up on your renal function. Avoid medic pa tients like an NSAID, like ibuprofen, Aleve, etc. Please hold losartan for now until your renal function is reassessed by your primary care doctor and found improved. For now amlodipine is prescribed to help with management of blood pressure in its stead. Hold fenofibrate for now until your primary care doctor can reassess your liver function and finds it to be continuing to improve. Continue to monitor your blood glucose to manage of diabetes. 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
[2020-11-17 15:22] VITALS: BP 142/86; PULSE 70; RESP 16; TEMP 36.7; O2SAT 96
[2020-11-17 15:51] LABS: Glucose Point of Care 127 mg/dL (70-110)
[2020-11-17 17:19] LABS: West Nile Virus AB (IGG) <1.30 index; West Nile Virus AB (IGM) <0.90 index
[2020-11-17 17:56] VITALS: BP 142/86; PULSE 70; RESP 16; TEMP 36.7; O2SAT 96
[2020-11-17 22:18] LABS: Lyme Disease AB (IGG),IBL NO BANDS DETECTED; Lyme Disease AB (IGM), IBL NO BANDS DETECTED
[2020-11-19 12:14] LABS: Lyme AB Screen <0.90 index
[2020-11-19 16:48] LABS: St. Louis Enceph.Virus IGG CSF <1:1; St. Louis Enceph.Virus IGM CSF <1:1
[2020-11-20 17:13] LABS: E. Chaffeensis AB IGG <1:64; E. Chaffeensis AB IGM <1:20; RMSF IGG NOT DETECTED; RMSF IGM NOT DETECTED
== END 2020-11-17 17:30 | disposition home or self-care (01) | DRG 871 ==
LOC: ER 03:05 → MEDSURG 03:59
PROVIDERS: Admitting Provider Internal Medicine; Emergency Provider Emergency Medicine; PCP Family Medicine; Visit Provider Internal Medicine
DX: A41.9 Sepsis, unspecified organism (principal); G04.90 Encephalitis and encephalomyelitis, unspecified; R44.0 Auditory hallucinations; F05 Delirium due to known physiological condition; F33.9 Major depressive disorder, recurrent, unspecified; N17.9 Acute kidney failure, unspecified; R44.1 Visual hallucinations; I10 Essential (primary) hypertension; K74.60 Unspecified cirrhosis of liver; F41.1 Generalized anxiety disorder; B19.20 Unspecified viral hepatitis C without hepatic coma; G89.29 Other chronic pain; Z79.891 Long term (current) use of opiate analgesic; Z20.822 Contact with and (suspected) exposure to COVID-19; Z87.891 Personal history of nicotine dependence; Z85.828 Personal history of other malignant neoplasm of skin
CPT/HCPCS: 12345; 36415; 36416; 62328; 70450; 70553; 71045; 76705; 80053; 80202; 80306; 80307; 81003; 82140; 82248; 82595; 82607; 82945; 82962; 83010; 83615; 83916; 84146; 84157; 84311; 84443; 85025; 85378; 85610; 86038; 86592; 86617; 86618; 86653; 86666; 86705; 86706; 86709; 86757; 86788; 86789; 86803; 87040; 87070; 87075; 87205; 87340; 87426; 89050; 93005; 96372; 97110; 97161; 97165; 97535; 99281; 99282; 99283; A9579; J0133; J0696; J1100; J1630; J1650; J1815; J2060; J3370; J3480; J3490; J7050; J7799

== ENCOUNTER → 2021-02-14 11:41 | Outpatient (BNVA) | payer MEDICARE, SELFPAY | PROVIDERS: PCP Family Medicine; Visit Provider Family Medicine | DX: I10 Essential (primary) hypertension (principal); E11.65 Type 2 diabetes mellitus with hyperglycemia | CPT/HCPCS: 80053; 80061; 83036; 85025 ==

== ENCOUNTER 2023-04-26 18:37 | Emergency (ER) | payer MEDICARE, SELFPAY ==
--- NOTE | 2023-04-26 19:19 | W.ED.ABDPA2 ---
HPI - Abdominal Pain General: Chief Complaint: Abdominal Pain Stated Complaint: ABD Pain Time Seen by Provider: 04/26/23 19:19 History of Present Illness: Mr. Tee is a 72-year-old gentleman presenting to the emergency department for abdominal pain. He notes onset of symptoms 2 days ago without known specific provoking event. He endorses left lower quadrant pain which has not completely resolved and is moderate to severe in intensity. He describes it as a sharp gas-like pain. He has not had bowel movements but also says that he has not been eating much. No other specific changes in health, exacerbating, or alleviating factors identified. Onset (ago): day(s) Pain Consistency: constant Location: Periumbilical and LLQ Severity: severe Radiation: none Migration to: no migration Exacerbating factors: nothing Relieving factors: nothing Associated Symptoms: Reports chills and nausea; Denies diarrhea, dysuria, fever(s) and vomiting Review of Systems General: Reports: 10 or more systems reviewed and unremarkable except in HPI and below Const: Reports: chills; Denies: fever(s) GI: Reports: nausea; Denies: vomiting or diarrhea : Denies: dysuria PFSH ED PFSH: Medical History Altered mental status Anxiety and depression Benign hypertension Chronic low back pain Chronic lumbar radiculopathy Controlled diabetes mellitus with hyperglycemia, without long-term current use of insulin DDD (degenerative disc disease), lumbar Delirium due to general medical condition Encounter for long-term use of opiate analgesic Hepatitis B Hypertriglyceridemia Meningoencephalitis Opioid contract exists Vitamin D insufficiency Surgical History History of appendectomy History of colonoscopy 2016 History of squamous cell carcinoma excision Left hand 07/2019 Family History Mother Cancer Dementia Father Heart disease Social History Smoking and tobacco status: former smoker Second hand smoke exposure: No Smoking risk assessment/counseling performed?: Yes Alcohol intake: current Alcohol intake frequency: 0-2 Drinks per Day Alcohol type: beer Desire information about alcohol rehabilitation?: No (PATIENT CURRENTLY DENIES USE 01/06/2020) Counseling given: No Substance/Drug Use: never Desire information about substance/drug rehabilitation?: No Counseling given: No Caregiver/support person: No Lives independently: Yes Marital status: Current gender identity: Male Physical Exam Const: COMMON NORMALS: alert GENERAL APPEARANCE: cooperative and well developed HENMT: COMMON NORMALS: normocephalic and atraumatic HEAD & SCALP: normocephalic and atraumatic Eye: COMMON NORMALS: conjunctivae normal CONJUNCTIVA: Yes conjunctivae normal SCLERA: sclerae normal Neck/C-Spine: COMMON NORMALS: supple GENERAL: Yes trachea midline Resp: COMMON NORMALS: normal respiratory effort EFFORT & INSPECTION: Yes able to speak in complete sentences Cardio: COMMON NORMALS: regular rate and regular rhythm RATE: regular rate RHYTHM: regular rhythm GI: COMMON NORMALS: Soft to palpation PALPATION: Yes Soft to palpation, Yes Tenderness to palpation present (GI) Details: LLQ, No Guarding due to palpation present (GI) and No Rigid due to palpation Extremity: GENERAL: Yes normal exam except as noted and No edema Neuro: COMMON NORMALS: moves all extremities SENSORIUM/ORIENTATION: Yes alert and No Orientation impaired Psych: COMMON NORMALS: mental status grossly normal and Normal thought process present THOUGHT PROCESS: Normal thought process present Course Vital Signs: Vital signs: Vital Signs Temperature 98.9 F 04/26/23 19:20 Pulse Rate 72 04/27/23 00:55 Respiratory Rate 16 04/27/23 00:55 Blood Pressure 144/94 04/27/23 00:55 Pulse Oximetry 94 04/27/23 00:55 MDM - Abdominal Pain Medical Decision Making 72-year-old gentleman presenting with 3 days of abdominal pain. Patient is nontoxic in appearance. Some pain to deep palpation of the left lower periumbilical region without evidence of acute surgical abdomen. Labs notable for mild hemoconcentration and minimal leukocytosis. Renal function with creatinine 1.3, no acute electrolyte derangements requiring intervention. T. bili is elevated though patient is history of similar and no right upper quadrant tenderness to palpation. Hematuria without evidence of urinary tract infection. CT demonstrates left ureterolithiasis with ureteral abnormality. Incidental findings noted. Discussed with urology at [facility], and no indication for inpatient management or transfer at this time. Satisfactory for close outpatient follow-up. Patient's symptoms controlled with analgesia and able to tolerate p.o. intake. Satisfactory for outpatient management with strict return precautions. The results of ED evaluation were discussed with the patient including prescriptions and/or symptomatic cares (if applicable) including appropriate and responsible use, followup plan, and return precautions. The patient verbalized understanding and felt safe for discharge. Medical Records I reviewed the patient's medical records. Lab Data I reviewed the patient's lab results. 04/26/23 19:29 04/26/23 19:29 Labs/Radiology: Radiology Impressions Abdomen/Pelvis CT 04/26/23 19:54 IMPRESSION: 1. Left distal ureteral calculus with mild hydronephrosis and hydroureter and delayed left nephrogram. Stranding and small amount of fluid around mid/distal ureter may represent regional ureteral perforation and small urinoma formation. Urologic consultation and follow-up assessment should be considered. Minimal perinephric stranding and no significant perinephric collection. 2. Somewhat distended gallbladder with no obvious acute cholecystitis or bile duct dilatation. 3. Probable pancreatic ductal anatomic variant with minimal dilatation of proximal main pancreatic duct. Clinical correlation/comparison prior study should be obtained. Otherwise follow-up imaging with contrast-enhanced MRI/MRCP should be considered. COMMENTS: Consistent with the [employer]'s Incidental Findings Committee white paper (J Am Meggan Radiol 2018): Any incidental renal lesion less than 1 cm or classified as too small to characterize, or any incidental cystic renal lesion characterized as simple-appearing, is likely benign. No follow-up imaging is recommended for these lesions per consensus recommendations based on imaging criteria. Laboratory Results WBC 11.5 10^3/uL (4.0-10.0) H 04/26/23 19: RBC 6.21 10^6/uL (4.1-5.3) H 04/26/23 19:29 Hgb 18.5 g/dL (11.7-16.6) H 04/26/23 19: Hct 51.6 % (42.0-52.0) 04/26/23 19: MCV 83.1 fl (80-94) 04/26/23 19: MCH 29.8 pg (28.0-34.0) 04/26/23 19: MCHC 35.9 g/dL (30.0-36.0) 04/26/23 19: RDW 12.9 % (12.1-15.1) 04/26/23: Plt Count 211 10^3/cmm (130-400) 04/26/23: MPV 9.5 fL (7.4-10.4) 04/26/23 19: Neut % (Auto) 79.4 % 04/26/23: Lymph % (Auto) 10.5 % 04/26/23: Leake % (Auto) 9.2 % 04/26/23: Eos % (Auto) 0.1 % 04/26/23: Baso % (Auto) 0.3 % 04/26/23: Neut # (Auto) 9.11 10^3/uL (1.8-7.7) H 04/26/23: Lymph # (Auto) 1.2 10^3/uL (0.8-4.8) 04/26/23: Leake # (Auto) 1.1 10^3/uL (0.2-0.9) H 04/26/23: Eos # (Auto) 0.0 10^3/uL (0.0-0.8) 04/26/23: Baso # (Auto) 0.0 10^3/uL (0.0-0.1) 04/26/23: Nucleated RBC % (auto) 0 % 04/26/23: Nucleated RBCs # 0.0 /100WBC 04/26/23: Sodium 133 mmol/L (136-145) L 04/26/23: Potassium 3.9 mmol/L (3.5-5.1) 04/26/23: Chloride 98 mmol/L (98-107) 04/26/23: Carbon Dioxide 21 mmol/L (22-29) L 04/26/23: Anion Gap 17.9 (5-19) 04/26/23: BUN 13 mg/dL (8-23) 04/26/23: Creatinine 1.3 mg/dL (0.7-1.2) H 04/26/23: GFR Calculation Not Reportable 04/26/23: Glucose 207 mg/dL (65-115) H 04/26/23: Calculated Osmolality 282 mOsm/kg (285-295) L 04/26/23 19: Calcium 9.4 mg/dL (8.5-10.5) 04/26/23 19: Total Bilirubin 2.0 mg/dL (0.15-1.2) H 04/26/23 19: AST 12 U/L (0-40) 04/26/23 19: ALT 12 U/L (0-41) 04/26/23 19: Alkaline Phosphatase 112 U/L (40-130) 04/26/23 19: Total Protein 6.9 g/dL (6.6-8.7) 04/26/23 19: Albumin 4.2 g/dL (3.5-5.2) 04/26/23: Globulin 2.7 g/dL (1.3-4.6) 04/26/23 19: Lipase 31 U/L (13-60) 04/26/23: Urine Color Dark yellow (Yellow) 04/26/23 23: Urine Appearance Clear (CLEAR) 04/26/23 23: Urine pH 5 (5-7) 04/26/23 23:25 Ur Specific [place] 1.005 (1.005-1.030) 04/26/23 23: Urine Protein 1+ (Negative) H 04/26/23 23: Urine Glucose (UA) 2+ (Normal) H 04/26/23 23:25 Urine Ketones 2+ (Negative) H 04/26/23 23:25 Urine Blood 3+ (Negative) H 04/26/23 23:25 Urine Nitrate Negative (Negative) 04/26/23 23: Urine Bilirubin Neg (Negative) 04/26/23 23: Urine Urobilinogen Norm mg/dL (Negative) 04/26/23 23:25 Ur Leukocyte Esterase Negative (Negative) 04/26/23 23:25 Urine RBC 15-25 /hpf (0-2) H 04/26/23 23:25 Urine WBC None /hpf (0-5) 04/26/23 23:25 Ur Squamous Epith Cells 0-4 /hpf (0-5) H 04/26/23 23:25 Amorphous Sediment Not Reportable 04/26/23 23:25 Urine Bacteria None /hpf (NONE) 04/26/23 23:25 Discharge Plan Discharge Patient Disposition: Home Clinical Impression: Abdominal pain, Abnormal computed tomography of ureter, Calculus, ureteral Condition: Stable Prescriptions: New ondansetron 4 mg tablet,disintegrating 4 mg PO Q8H PRN (Reason: nausea and vomiting) Qty: 15 0RF oxycodone 5 mg tablet 5 mg PO Q4H PRN (Reason: pain) Qty: 20 0RF Flomax 0.4 mg capsule 0.4 mg PO DAILY Qty: 30 0RF No Action escitalopram oxalate [Lexapro] 20 mg tablet 20 mg PO BEDTIME Qty: 30 5RF metformin 500 mg tablet extended release 24 hr 1,000 mg PO BID@10,22 30 Days Qty: 120 5RF Rx Instructions: Will need labs before any further refills. Januvia 100 mg tablet 100 mg PO DAILY@10 Qty: 30 5RF oxycodone 5 mg tablet 5 mg PO QID PRN (Reason: pain) 30 Days Qty: 120 0RF Rx Instructions: @00:00,06:00,12:00,18:00 multivitamin Tablet 1 tab PO DAILY@10 acetaminophen [Tylenol Extra Strength] 500 mg Tablet 1,000 mg PO PRN vitamin B complex Tablet 1 tab PO DAILY saw palmetto 500 mg Capsule 1,000 mg PO BID coenzyme Q10 [CoQ-10] 100 mg Capsule 100 mg PO DAILY digestive enzymes (plant) 55 mg Capsule 55 mg PO DAILY tramadol 50 mg tablet 50 mg PO QID Rx Instructions: @00:00,06:00,12:00,18:00 fill on or after 11/02/20 and 12/02/20 Discharge Orders: Discharge ED (Routine); Ordered 04/27/23 Ordered By: Quinton Medina Referrals: Galilea Regalado MD [Primary Care Provider] - Discharge Diet: Usual diet Discharge Activity: Increase activity as tolerated Patient Instructions: Abdominal Pain (ED), Ureteral Stones (ED), Opioid Safety Activity Restrictions/Additional Instructions: Thank you for visiting the emergency department. You were seen and evaluated for abdominal pain. The most likely cause of your pain is related to kidney stone with localized abnormality of the ureter. In discussion with urology outpatient management is appropriate. I will prescribe Flomax, Zofran, and oxycodone. Use oxycodone carefully as it is an opioid. You may use eymc-iei-pqyclup medications such as acetaminophen and ibuprofen for pain however please do not exceed the daily recommended dosage as listed on the packaging and please keep in mind that many namebrand medications contain the same active ingredients. Please avoid these medications if previously instructed to do so by another physician due to other underlying medical condition. I will message case management for follow-up with urology. Please also follow-up with your primary care provider. Return for fevers, uncontrolled symptoms, or anything else that you are concerned about and feel needs emergency department evaluation. [facility] [address] [place] [address], [address] [place] [address] Coding Level of Care Code ED Soundscriber Mechanic for Екатерина Castillo
[2023-04-26 19:20] VITALS: BP 155/86; PULSE 76; RESP 18; TEMP 37.2; O2SAT 96; BMI 29.5
[2023-04-26] MEDS: ondansetron 2 mg/ML SDV 2 mL 4 MG IVP (19:39)
[2023-04-26] MEDS: morphine 4 mg/mL SDV 1 mL IVP ×2 (19:41→22:36)
[2023-04-26 19:50] LABS: Basophils % 0.3 %; Eosinophils % 0.1 %; Hematocrit 51.6 % (42.0-52.0); Hemoglobin 18.5 g/dL (11.7-16.6); Lymphocytes # 1.2 10^3/uL (0.8-4.8); Lymphocytes % 10.5 %; Mean Corpuscular HGB Conc 35.9 g/dL (30.0-36.0); Mean Corpuscular Hemoglobin 29.8 pg (28.0-34.0); Mean Corpuscular Volume 83.1 fl (80-94); Mean Platelet Volume 9.5 fL (7.4-10.4); Monocytes # 1.1 10^3/uL (0.2-0.9); Monocytes % 9.2 %; Neutrophils # 9.11 10^3/uL (1.8-7.7); Neutrophils % 79.4 %; Nucleated Red Blood Cells % 0 %; Platelet Count 211 10^3/cmm (130-400); Red Blood Count 6.21 10^6/uL (4.1-5.3); Red Cell Distribution Width 12.9 % (12.1-15.1); White Blood Count 11.5 10^3/uL (4.0-10.0)
--- NOTE | 2023-04-26 19:54 | CTR_ITS ---
PROCEDURE INFORMATION: Exam: CT Abdomen And Pelvis With Contrast Exam date and time: 04/26/2023 8:00 PM Age: 72 years old Clinical indication: Abdominal pain; Prior surgery; Surgery date: 6+ months; Surgery type: Appy; Patient HX: C/O periumbilical pain; Additional info: Abd pain, L periumbilical TECHNIQUE: Imaging protocol: Computed tomography of the abdomen and pelvis with contrast. Radiation optimization: All CT scans at this facility use at least one of these dose optimization techniques: automated exposure control; mA and/or kV adjustment per patient size (includes targeted exams where dose is matched to clinical indication); or iterative reconstruction. Contrast material: OMNI 350; Contrast volume: 100 ml; Contrast route: INTRAVENOUS (IV); REPORTING DATA: Count of CT and Cardiac NM exams in prior 12 months: This patient has received 0 known CTs and 0 known cardiac nuclear medicine studies in the 12 months prior to the current study. COMPARISON: US abdomen limited [id number] 11/13/2020 2:13 PM RADIATION DOSE METRICS: Total DLP (mGy-cm): 968.9 FINDINGS: Liver: Normal. No mass. Gallbladder and bile ducts: Gallbladder is somewhat distended which may be related to prolonged fasting versus cholestasis. No obvious imaging signs of acute cholecystitis or bile duct dilatation. Heterogeneous dependent gallbladder content suggesting sludge and/or noncalcified calculi. Clinical correlation should be obtained. Sonographic follow-up may also be considered if clinically indicated. No abnormal bile duct dilatation. Pancreas: Minimal main pancreatic ductal dilatation however pancreatic duct appears to drain distal to the CBD suggesting possible pancreatic ductal drainage anatomic variant/pancreatic divisum. No contour deforming pancreatic mass or regional collection/pseudocyst or pancreatic necrosis. Spleen: Multiple calcified granulomas. No splenomegaly. Adrenal glands: Normal. No mass. Kidneys and ureters: Symmetric renal size. Left lower pole hypodense renal lesion, likely simple cyst measuring 5 mm. There is a left distal ureteral calculus, measuring 4 x 4 x 3 mm with mild hydronephrosis and hydroureter. There is stranding and small amount of fluid around the mid/distal left ureter which may represent ureteral perforation and small urinoma formation. Mild left perinephric stranding and delayed nephrogram without drainable perinephric collection. Stomach and bowel: Unremarkable. No obstruction. No mucosal thickening. Appendix: Previous appendectomy. Intraperitoneal space: Unremarkable. No free air. No significant fluid collection. Vasculature: Diffuse aortoiliac calcifications without aneurysm. Lymph nodes: No enlarged lymph nodes. Urinary bladder: Unremarkable as visualized. Reproductive: Unremarkable as visualized. Bones/joints: Multilevel vertebral disc degeneration and endplate osteophytes. No acute osseous findings otherwise. Soft tissues: Small fat-containing left inguinal hernia. CT/CT abdomen pelvis w con* [id number] IMPRESSION: 1. Left distal ureteral calculus with mild hydronephrosis and hydroureter and delayed left nephrogram. Stranding and small amount of fluid around mid/distal ureter may represent regional ureteral perforation and small urinoma formation. Urologic consultation and follow-up assessment should be considered. Minimal perinephric stranding and no significant perinephric collection. 2. Somewhat distended gallbladder with no obvious acute cholecystitis or bile duct dilatation. 3. Probable pancreatic ductal anatomic variant with minimal dilatation of proximal main pancreatic duct. Clinical correlation/comparison prior study should be obtained. Otherwise follow-up imaging with contrast-enhanced MRI/MRCP should be considered. COMMENTS: Consistent with the [employer]'s Incidental Findings Committee white paper (J Am Meggan Radiol 2018): Any incidental renal lesion less than 1 cm or classified as too small to characterize, or any incidental cystic renal lesion characterized as simple-appearing, is likely benign. No follow-up imaging is recommended for these lesions per consensus recommendations based on imaging criteria.
[2023-04-26] MEDS: iohexol 350 mg/mL 500 mL Btl (per mL) IV (20:05)
[2023-04-26 20:09] LABS: Alanine Aminotransferase 12 U/L (0-41); Albumin Level 4.2 g/dL (3.5-5.2); Alkaline Phosphatase 112 U/L (40-130); Anion Gap 17.9 (5-19); Aspartate Amino Transferase 12 U/L (0-40); Blood Urea Nitrogen 13 mg/dL (8-23); Calcium 9.4 mg/dL (8.5-10.5); Carbon Dioxide 21 mmol/L (22-29); Chloride 98 mmol/L (98-107); Globulin 2.7 g/dL (1.3-4.6); Glucose 207 mg/dL (65-115); Lipase 31 U/L (13-60); Osmolality Calculated 282 mOsm/kg (285-295); Potassium 3.9 mmol/L (3.5-5.1); Sodium 133 mmol/L (136-145); Total Protein 6.9 g/dL (6.6-8.7)
[2023-04-26] MEDS: sodium chloride 0.9% 1,000 ML 999 ML IV (20:38)
[2023-04-26 22:36] VITALS: RESP 19; O2SAT 92
[2023-04-26 23:35] LABS: Urine Appearance Clear (CLEAR); Urine Color Dark Yellow (Yellow)
[2023-04-26 23:36] LABS: Add Urine Microscopic? YES; Bilirubin Urine Neg (Negative); Blood Urine 3+ (Negative); Glucose Urine UA 2+ (Normal); Ketones Urine 2+ (Negative); Leukocyte Esterase Urine Negative (Negative); Nitrate Urine Negative (Negative); Protein Urine 1+ (Negative); Specific Gravity, Urine 1.005 (1.005-1.030); Urobilinogen Urine Norm (Negative); pH Urine 5 (5-7)
[2023-04-26 23:37] LABS: RBC Urine 15-25 /hpf (0-2); Squamous Epithelial Cell Urine 0-4 /hpf (0-5)
[2023-04-26 23:38] LABS: Add Urine Culture? Yes
[2023-04-26] MEDS: ketorolac 30 mg/mL INJ 15 MG IVP (23:57)
[2023-04-26] MEDS: fentaNYL 50 mcg/mL INJ 2mL IVP (23:57)
[2023-04-26] MEDS: tamsulosin 0.4 mg Capsule PO (23:57)
--- NOTE | 2023-04-27 00:44 | PC.NURSE ---
Pt given 3x tabs of Oxycodone IR per MD orders.
[2023-04-27 00:55] VITALS: BP 144/94; PULSE 72; RESP 16; O2SAT 94
--- NOTE | 2023-04-28 08:34 | DCPLANNER ---
Addendum entered by Dorie Butler 05/07/23 15:38: rehab department manager called clinic to confirm that patients information had been received. rehab department manager was told that patients information had been received, clinic will call patient with appointment information. Original Note: rehab department manager had message to refer patient to [facility] urology for follow up. rehab department manager faxed patients information to the urology clinic at [facility]. Patients information will be reviewed, clinic will call patient with appointment information.
== END 2023-04-27 00:54 | disposition home or self-care (01) ==
PROVIDERS: Emergency Provider Emergency Medicine; PCP Family Medicine
DX: N13.2 Hydronephrosis with renal and ureteral calculous obstruction (principal)
CPT/HCPCS: 36415; 74177; 80053; 81001; 83690; 85025; 87086; 96361; 96374; 96375; 96376; 99285; J1885; J2270; J2405; J3010; J7030; Q9967

== ENCOUNTER 2025-08-28 21:39 | Emergency (ER) | payer MEDICARE, SELFPAY ==
[2025-08-28 21:55] VITALS: BP 155/93; PULSE 105; RESP 18; TEMP 37.4; O2SAT 92; BMI 20.7
--- NOTE | 2025-08-28 21:58 | ECG_ITS ---
[employer] [facility] Test Date: 2025-08-28 Pat Name: Bukc Tee Department: Room: Gender: Male Operator/Assistant Foreman: : 1950 Requested By: Eduarda Hernandez Order Number: [id number] Sanchez MD: Edson Galvan M.D. Measurements Intervals [place] Rate: 105 P: 13 OK: 168 QRS: -52 QRSD: 93 T: 126 QT: 309 QTc: 410 Interpretive Statements SINUS TACHYCARDIA LEFT ANTERIOR FASCICULAR BLOCK [QRS AXIS <= -45, QR IN I, RS IN II] LEFT VENTRICULAR HYPERTROPHY AND ST-T CHANGE [VOLTAGE CRITERIA PLUS ST/T ABNORMALITY] POSSIBLE ANTEROSEPTAL MYOCARDIAL INFARCTION , PROBABLY OLD [30 ms Q WAVE IN V1-V4] Compared to ECG 11/13/2020 05:58:38 Left anterior fascicular block now present Left ventricular hypertrophy now present. ST (T wave) deviation now present Myocardial infarct finding now present. Sinus rhythm no longer present Left-axis deviation no longer present .T-wave abnormality no longer present Electronically Signed On 08-29-2025 21:58:28 GRINDING WHEEL FACER by Edson Galvan M.D. [id number]
[2025-08-28 22:36] VITALS: BP 157/84; PULSE 96; RESP 16; O2SAT 92
--- NOTE | 2025-08-28 22:49 | XRR_ITS ---
PROCEDURE INFORMATION: Exam: XR Chest Exam date and time: 08/28/2025 11:10 PM Age: 74 years old Clinical indication: Pain; Shortness of breath; Angina pectoris; Additional info: NUNO Arrington TECHNIQUE: Imaging protocol: Radiologic exam of the chest. Views: 1 view. COMPARISON: CR XR chest 1V portable [id number] 11/13/2020 1:17 AM FINDINGS: Lungs: Patchy infiltrates in the right lung base. Pleural spaces: Unremarkable. No pleural effusion. No pneumothorax. Heart/Mediastinum: Unremarkable. No cardiomegaly. Bones/joints: Unremarkable. XR/XR chest 1V portable [id number] IMPRESSION: As above.
--- NOTE | 2025-08-28 22:49 | ECG_ITS ---
[facility] Date: 2025-08-29 Pat Name: Buck Tee Department: Room: Gender: Male Home Based Assistant: : 1950 Requested By: Jayesh Nice Order Number: [id number] Sanchez MD: Edson Galvan M.D. Measurements Intervals [place] Rate: 101 P: 22 [place]: 185 QRS: -56 QRSD: 96 T: 79 QT: 336 QTc: 436 Interpretive Statements SINUS TACHYCARDIA LEFT ANTERIOR FASCICULAR BLOCK [QRS AXIS <= -45, QR IN I, RS IN II] LEFT VENTRICULAR HYPERTROPHY AND ST-T CHANGE [VOLTAGE CRITERIA PLUS ST/T ABNORMALITY] POSSIBLE ANTEROSEPTAL MYOCARDIAL INFARCTION , PROBABLY OLD [30 ms Q WAVE IN V1-V4] Compared to ECG 08/28/2025 21:51:55 No significant changes Electronically Signed On 08-29-2025 21:56:24 TOW MOTOR MECHANIC by Edson Galvan M.D. [email or web address]
[2025-08-28 23:08] LABS: Glucose Urine UA 3+ (Normal); Nitrate Urine Negative (Negative)
[2025-08-28 23:13] LABS: Add Urine Microscopic? YES
[2025-08-28 23:27] LABS: Specific Gravity, Urine 1.042 (1.005-1.030)
[2025-08-28] MEDS: fentaNYL 50 mcg/mL INJ 2mL IVP (23:37)
[2025-08-28 23:40] LABS: Respiratory Syncytial Virus Ce NEGATIVE (Negative); SARS-CoV-2 PCR NEGATIVE (Negative)
--- NOTE | 2025-08-28 23:40 | ED_ITS ---
HPI - Chest Pain 2 General: Chief Complaint: Chest Pain Stated Complaint: Upper Chest Pain to Lungs to Back Time Seen by Provider: 08/28/25 22:29 Source: patient Mode of arrival: ambulatory Limitations: no limitations History of Present Illness: Patient is a 74-year-old male presents the emergency department planing of right-sided chest pain for the past 3 days. States it came on all of a sudden, he was not doing any physical exertion and it has been constant since onset. States that it is reproducible to the touch and feels like a cracked rib. Does note it radiates into the back/right shoulder region. Does note that it hurts to take deep breaths and he has felt short of breath, no coughing. No diaphoresis, lightheadedness or dizziness, nausea or vomiting. No pertinent cardiac history. He is not running fevers or been sick recently. States the pain is currently an 8/10. No direct trauma to the chest. MD complaint: chest pain Onset (ago): day(s) Timing of current episode: constant Onset: during rest Pain location: right chest Pain radiation: back and right shoulder Severity: severe Pain scale (0-10): 8 Quality: sharp Exacerbating factors: inspiration and palpation Associated symptoms: Reports dyspnea; Deny abdominal pain, fever(s), nausea, palpitations or vomiting Related Data Home Medications ?Medication ?Instructions ?Recorded ?Confirmed acetaminophen 500 mg tablet 1,000 mg PO PRN 11/12/20 0 02/19/21 (Tylenol Extra Strength) coenzyme Q10 100 mg capsule 100 mg PO DAILY 11/12/20 0 02/19/21 (CoQ-10) digestive enzymes (plant) 55 mg 55 mg PO DAILY 1 02/19/21 capsule multivitamin 1 tab PO DAILY@10 11/12/20 0 02/19/21 saw palmetto 500 mg capsule 1,000 mg PO BID 11/12/20 0 02/19/21 tramadol 50 mg tablet 50 mg PO QID pain 11/12/20 0 11/13/20 vitamin B complex 1 tab PO DAILY 11/12/2001/25 Previous Rx's ?Medication ?Instructions ?Recorded oxycodone 5 mg tablet 5 mg PO QID PRN pain 30 days #120 10/31/20 tabs escitalopram oxalate 20 mg tablet 20 mg PO BEDTIME #30 tabs 02/19/21 (Lexapro) metformin 500 mg tablet,extended 1,000 mg (2 x 500 mg) PO BID@10,22 02/19/21 release 24 hr 30 days #120 tabs sitagliptin phosphate 100 mg 100 mg PO DAILY@10 #30 ta bs 02/19/21 tablet (Januvia) ondansetron 4 mg disintegrating 4 mg PO Q8H PRN nausea and 04/27/23 tablet vomiting #15 tabs oxycodone 5 mg tablet 5 mg PO Q4H PRN pain #20 tab s 04/27/23 tamsulosin 0.4 mg capsule (Flomax) 0.4 mg PO DAILY #30 caps 04/27/23 amoxicillin 875 mg-potassium 1 tab PO BID 10 days #20 tabs 08/29/25 clavulanate 125 mg tablet doxycycline hyclate 100 mg tablet 100 mg PO BID 10 day s #20 tabs 08/29/25 Allergies Allergy/AdvReac Type Severity Reaction Status Date / Time No Known Allergies Allergy Verified 08/28/25 21:59 Review of Systems 2 General: Reports: 10 or more systems reviewed and unremarkable except in HPI and below Const: Denies: fever(s), chills or fatigue Eyes: Denies: change in vision ENMT: Denies: throat pain, ear or mastoid pain or nasal discharge Card: Reports: chest pain; Denies: palpitations, swelling of feet/ankles or lightheadedness Resp: Reports: dyspnea; Denies: productive cough or wheezing GI: Denies: abdominal pain, nausea, vomiting, diarrhea or constipation : Denies: flank pain, difficulty urinating, dysuria or urinary frequency Musc: Reports: back pain; Denies: neck pain or joint pain Skin/Breast: Denies: rash Neuro: Denies: headache(s), numbness in extremities or weakness in extremities PFSH ED 2 PFSH: Medical History Hepatitis B Meningoencephalitis Altered mental status Delirium due to general medical condition Chronic lumbar radiculopathy Chronic low back pain Opioid contract exists Encounter for long-term use of opiate analgesic Controlled diabetes mellitus with hyperglycemia, without long-term current use of insulin Hypertriglyceridemia Benign hypertension Vitamin D insufficiency Anxiety and depression DDD (degenerative disc disease), lumbar Surgical History History of squamous cell carcinoma excision Left hand 07/2019 History of appendectomy History of colonoscopy 2016 Family History Mother Cancer Dementia Father Heart disease Social History Smoking and tobacco/nicotine status: former use of tobacco/nicotine Second hand smoke exposure: No Alcohol intake: current Alcohol intake frequency: 0-2 Drinks per Day Alcohol type: beer Substance/Drug Use: never Caregiver/support person: No Lives independently: Yes Marital status: Current gender identity: Male Physical Exam 2 Const: COMMON NORMALS: no acute distress, patient oriented x3 and no limitations GENERAL APPEARANCE: cooperative, comfortable and well developed ORIENTATION/CONSCIOUSNESS: Yes awake, Yes oriented to person, Yes oriented to place and Yes oriented to time HENMT: COMMON NORMALS: normocephalic, atraumatic and hearing grossly normal bilaterally HEAD & SCALP: normocephalic and atraumatic Eye: COMMON NORMALS: Equal, round and reactive pupils present, EOMs intact bilaterally and conjunctivae normal CONJUNCTIVA: Yes conjunctivae normal P UPIL: Yes Equal, round and reactive pupils present Neck/C-Spine: COMMON NORMALS: full ROM, supple and no JVD Chest: OTHER: reproducible tenderness to palpation right anterior chest wall Resp: COMMON NORMALS: normal respiratory effort, No retractions, No use of accessory muscles and clear to auscultation bilaterally AUSCULTATION: clear to auscultation bilaterally Cardio: COMMON NORMALS: no JVD, regular rate, regular rhythm, No clicks present (Cardio), No murmurs present (Cardio) and No rub (Cardio) RATE: r egular rate RHYTHM: regular rhythm Extremity: COMMON NORMALS: normal to inspection, full ROM and capillary refill normal Neuro: COMMON NORMALS: patient oriented x3, moves all extremities, no focal motor deficits and no sensory deficits noted SENSORIUM/ORIENTATION: Yes oriented to person, Yes oriented to place and Yes oriented to time Skin: COMMON NORMALS: no rashes or lesions noted GENERAL SKIN EXAM: no rashes or lesions noted Course 2 Vital Signs: Vital signs: Vital Signs Temperature 99.4 F 08/28/25 21:55 Pulse Rate 85 08/29/25 04:06 Respiratory Rate 18 08/29/25 02:30 Blood Pressure 149/84 08/29/25 04:06 Pulse Oximetry 93 08/29/25 04:06 Oxygen Delivery Me thod Room Air 08/28/25 23:51 MDM - Chest Pain Medical Decision Making Patient presented for right anterior chest pain radiating around to the back for the past 3 days, worse with deep breathing. No cardiac history reported. He was actively having symptoms at time of exam and pain was reproducible to palpation of the chest wall. No other symptoms and overall he was nontoxic- appearing, vitals have been stable. EKG showing no rhythm changes. Chest x-ray does show what appears to be right lower lobe infiltrate, and with his vitals he does have elevated temperature 99.4 and had been coughing prior to symptoms making me think this is likely infectious process. He is diabetic blood sugar was elevated to 507, this was brought down continues insulin and fluids here in the emergency department. On top of this there were no electrolyte derangements and no significant anion gap elevation. COVID flu RSV was negative, delta troponin was negative. I have low suspicion that this is pulmonary embolus or ACS or dissection, I feel that his symptoms are related to the pneumonia and with his vitals ultimately being stable he qualifies for outpatient therapy. With comorbidities will treat with dual therapy doxycycline and Augmentin. He is given strict return precautions to the emergency department of which she verbalized understanding and is comfortable with treatment at home. Lab Data 08/29/25 00:41 08/29/25 00:41 Radiology Impressions Chest X-Ray 08/28/25 22:49 IMPRESSION: As above. Laboratory Results WBC 10.56 10^3/uL (3.29-11.43) 08/29/25 00:41 RBC 5.44 10^6/uL (3.85-5.65) 08/29/25 00:41 Hgb 15.70 g/dL (11.27-16.99) 08/29/25 00:41 Hct 45.3 % (37-53) 08/29/25 00:41 MCV 83.3 fl (82-101) 08/29/25 00:41 MCH 28.9 pg (27-33) 08/29/25 00:41 MCHC 34.7 g/dL (30-55) 08/29/25 00:41 RDW 12.8 % (12.1-15.1) 08/29/25 00:41 Plt Count 327 10^3/cmm (157-399) 08/29/25 00:41 MPV 9.2 fL (7.4-10.4) 08/29/25 00:41 Neut % (Auto) 81.7 % 08/29/25 00:41 Lymph % (Auto) 6.8 % 08/29/25 00:41 [place] % (Auto) 9.7 % 08/29/25 00:41 Eos % (Auto) 0.1 % 08/29/25 00:41 Baso % (Auto) 0.5 % 08/29/25 00:41 Neut # (Auto) 8.63 10^3/uL (1.8-7.7) H 08/29/25 00:41 Lymph # (Auto) 0.7 10^3/uL (0.8-4.8) L 08/29/25 00:41 [place] # (Auto) 1.0 10^3/uL (0.2-0.9) H 08/29/25 00:41 Eos # (Auto) 0.0 10^3/uL (0.0-0.8) 08/29/25 00:41 Baso # (Auto) 0.1 10^3/uL (0.0-0.1) 08/29/25 00:41 Nucleated RBC % (auto) 0 % 08/29/25 00:41 Nucleated RBCs # 0.0 /100WBC 08/29/25 00:41 Sodium 133 mmol/L (136-145) L 08/29/25 00:41 Potassium 4.7 mmol/L (3.5-5.1) 08/29/25 00:41 Chloride 97 mmol/L (98-107) L 08/29/25 00:41 Carbon Dioxide 21 mmol/L (22-29) L 08/29/25 00:41 Anion Gap 19.7 (5-19) H 08/29/25 00:41 BUN 15 mg/dL (8-23) 08/29/25 00:41 Creatinine 0.8 mg/dL (0.7-1.2) 08/29/25 00:41 GFR Calculation Not Reportable 11/04/25 00:41 Glucose 507 mg/dL (65-115) H* 08/29/25 00:41 POC Glucose 327 mg/dL (70-110) H 08/29/25 03:20 Calculated Osmolality 300 mOsm/kg (285-295) H 08/29/25 00:41 Calcium 9.2 mg/dL (8.5-10.5) 08/29/25 00:41 Total Bilirubin 0.6 mg/dL (0.15-1.2) 08/29/25 00:41 AST 15 U/L (0-40) 08/29/25 00:41 ALT 20 U/L (0-41) 08/29/25 00:41 Alkaline Phosphatase 168 U/L (40-130) H 08/29/25 00:41 Troponin T Baseline 18 ng/L (0-15) H 08/29/25 00:41 Troponin T 120 Minute 16.07 ng/L (0-15) H 08/29/25 02:33 Delta Troponin T -1.93 ABS# (0-10) L 08/29/25 02:33 Total Protein 5.6 g/dL (6.6-8.7) L 08/29/25 00:41 Albumin 3.5 g/dL (3.5-5.2) 08/29/25 00:41 Globulin 2.1 g/dL (1.3-4.6) 08/29/25 00:41 Urine Color Yellow (Yellow) 08/28/25 22:58 Urine Appearance Clear (CLEAR) 08/28/25 22:58 Urine pH 5.5 (5-7) 08/28/25 22:58 Ur Specific [place] 1.042 (1.005-1.030) H 08/28/25 22:58 Urine Protein 1+ (Negative) A 08/28/25 22:58 Urine Glucose (UA) 3+ (Normal) H 08/28/25 22:58 Urine Ketones 3+ (Negative) H 08/28/25 22:58 Urine Blood Negative (Negative) 08/28/25 22:58 Urine Nitrate Negative (Negative) 08/28/25 22:58 Urine Bilirubin Negative (Negative) 08/28/25 22:58 Urine Urobilinogen 1.0 mg/dL (Negative) 08/28/25 22:58 Ur Leukocyte Esterase Negative (Negative) 08/28/25 22:58 Urine RBC 0-2 /hpf (0-2) 08/28/25 22:58 Urine WBC 0-5 /hpf (0-5) 08/28/25 22:58 Ur Squamous Epith Cells 0-5 /hpf (0-5) 08/28/25 22:58 Amorphous Sediment Not Reportable 08/28/25 22:58 Urine Bacteria None seen /hpf (NONE) 08/28/25 22:58 Hyaline Casts 0-4 /lpf H 08/28/25 22:58 Influenza A (PCR) Negative (Negative) 08/28/25 22:58 Influenza Type B (PCR) Negative (Negative) 08/28/25 22:58 RSV (PCR) Negative (Negative) 08/28/25 22:58 SARS-CoV-2 (PCR) Negative (Negative) 08/28/25 22:58 All radiology interpretation(s) finalized by discharge Discharge Plan Discharge Patient Disposition: Home Clinical Impression: Right lower lobe pneumonia Qualifiers: Pneumonia type: due to unspecified organism Qualified Code(s): J18.9 - Pneumonia, unspecified organism Condition: Stable Prescriptions: New doxycycline hyclate 100 mg tablet 100 mg PO BID 10 Days Qty: 20 0RF amoxicillin-pot clavulanate 875-125 mg tablet 1 tab PO BID 10 Days Qty: 20 0RF No Action escitalopram oxalate [Lexapro] 20 mg tablet 20 mg PO BEDTIME Qty: 30 5RF metformin 500 mg tablet extended release 24 hr 1,000 mg PO BID@10,22 30 Days Qty: 120 5RF Rx Instructions: Will need labs before any further refills. Januvia 100 mg tablet 100 mg PO DAILY@10 Qty: 30 5RF oxycodone 5 mg tablet 5 mg PO QID PRN (Reason: pain) 30 Days Qty: 120 0RF Rx Instructions: @00:00,06:00,12:00,18:00 multivitamin Tablet 1 tab PO DAILY@10 acetaminophen [Tylenol Extra Strength] 500 mg Tablet 1,000 mg PO PRN vitamin B complex Tablet 1 tab PO DAILY saw palmetto 500 mg Capsule 1,000 mg PO BID coenzyme Q10 [CoQ-10] 100 mg Capsule 100 mg PO DAILY digestive enzymes (plant) 55 mg Capsule 55 mg PO DAILY tramadol 50 mg tablet 50 mg PO QID Rx Instructions: @00:00,06:00,12:00,18:00 fill on or after 11/02/20 and 12/02/20 ondansetron 4 mg tablet,disintegrating 4 mg PO Q8H PRN (Reason: nausea and vomiting) Qty: 15 0RF oxycodone 5 mg tablet 5 mg PO Q4H PRN (Reason: pain) Qty: 20 0RF Flomax 0.4 mg capsule 0.4 mg PO DAILY Qty: 30 0RF Discharge Orders: Discharge ED (Routine); Ordered 08/29/25 Ordered By: Jayesh Jackson Patient Instructions: Patient Portal & Liza Instructions Activity Restrictions/Additional Instructions: Pneumonia Discharge Instructions Diagnosis: You have been diagnosed with pneumonia in the right lower part of your lung. You also have diabetes, which can affect your recovery. Medications: - Take amoxicillin-clavulanate (Augmentin) and doxycycline as prescribed: both twice daily for 10 days. - Finish all your antibiotics, even if you start feeling better. - Common side effects include upset stomach, diarrhea, or rash. If you develop severe diarrhea, persistent vomiting, or a rash, contact your doctor. Blood Glucose Monitoring: - Check your blood sugar regularly while you are taking these medications, as illness and antibiotics can affect your levels. - If your blood sugar is consistently above your target range or you have symptoms of very high or very low blood sugar (confusion, shakiness, sweating, or fainting), contact your healthcare provider. General Care: - Rest as much as possible and drink plenty of fluids. - Eat healthy meals and avoid alcohol and tobacco. - Use acetaminophen or ibuprofen for fever or pain, unless told otherwise. Return Precautions: Call your doctor or go to the emergency room immediately if you experience any of the following: - Trouble breathing, shortness of breath, or chest pain - High fever (over 102?F) that does not improve - Confusion, severe weakness, or inability to stay awake - Blue lips or face - Severe or persistent vomiting - Signs of an allergic reaction (swelling of face or throat, difficulty breathing, hives) - Blood sugar readings that are dangerously high or low and do not improve with your usual treatment Follow-Up: - Schedule a follow-up appointment as directed to check your recovery and discuss any concerns. Prevention: - Ask about pneumonia and flu vaccines at your next visit to help prevent future infections. If you have any questions or concerns, contact your healthcare provider. 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
[2025-08-28 23:51] VITALS: BP 150/85; PULSE 106; RESP 22; O2SAT 90
[2025-08-29] VITALS: BP 168/94; PULSE 102; RESP 18; O2SAT 90
[2025-08-29 00:44] VITALS: BP 158/75; PULSE 94; RESP 16; O2SAT 93
[2025-08-29 00:47] LABS: Hematocrit 45.3 % (37-53); Hemoglobin 15.70 g/dL (11.27-16.99); Mean Corpuscular HGB Conc 34.7 g/dL (30-55); Mean Corpuscular Hemoglobin 28.9 pg (27-33); Mean Corpuscular Volume 83.3 fl (82-101); Nucleated Red Blood Cells % 0 %; Platelet Count 327 10^3/cmm (157-399); Red Blood Count 5.44 10^6/uL (3.85-5.65); White Blood Count 10.56 10^3/uL (3.29-11.43)
--- NOTE | 2025-08-29 00:49 | ECG_ITS ---
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 Measurements Intervals [place] Rate: 92 P: 43 FL: 183 QRS: -49 QRSD: 97 T: 64 QT: 353 QTc: 437 Interpretive Statements SINUS RHYTHM WITH SINUS ARRHYTHMIA LEFT ANTERIOR FASCICULAR BLOCK [QRS AXIS <= -45, QR IN I, RS IN II] MINIMAL VOLTAGE CRITERIA FOR LVH, CONSIDER NORMAL VARIANT [MEETS CRITERIA IN ONE OF: R(aVL), S(V1), R(V5), R(V5/V6)+S(V1)] ANTEROSEPTAL MYOCARDIAL INFARCTION , OF INDETERMINATE AGE [40+ ms Q WAVE IN V1-V4] Compared to ECG 08/29/2025 00:13:38 Sinus tachycardia no longer present ST (T wave) deviation no longer present Myocardial infarct finding still present Electronically Signed On 08-29-2025 22:20:17 EDUCATIONAL INSTITUTION PRESIDENT by Edson Galvan M.D. [email or web address]
[2025-08-29 01:00] VITALS: BP 165/89; PULSE 89; O2SAT 92
[2025-08-29 01:05] LABS: Troponin(5th) Baseline 18 ng/L (0-15)
[2025-08-29 01:11] LABS: Alanine Aminotransferase 20 U/L (0-41); Albumin Level 3.5 g/dL (3.5-5.2); Alkaline Phosphatase 168 U/L (40-130); Anion Gap 19.7 (5-19); Aspartate Amino Transferase 15 U/L (0-40); Blood Urea Nitrogen 15 mg/dL (8-23); Calcium 9.2 mg/dL (8.5-10.5); Carbon Dioxide 21 mmol/L (22-29); Chloride 97 mmol/L (98-107); Creatinine Clr Calc Pharmacy 77.7118; Globulin 2.1 g/dL (1.3-4.6); Osmolality Calculated 300 mOsm/kg (285-295); Potassium 4.7 mmol/L (3.5-5.1); Sodium 133 mmol/L (136-145); Total Protein 5.6 g/dL (6.6-8.7)
[2025-08-29 01:16] LABS: Glucose 507 mg/dL (65-115)
[2025-08-29] MEDS: fentaNYL 50 mcg/mL INJ 2mL IVP (01:45)
[2025-08-29] MEDS: insulin regular-human 100 units/1 mL 10 UNIT IVP (01:57)
[2025-08-29 02:00] VITALS: BP 174/90; PULSE 89; O2SAT 92
[2025-08-29 02:30] VITALS: BP 185/96; PULSE 88; RESP 18; O2SAT 93
[2025-08-29 03:09] LABS: Troponin 5 2HR 16.07 ng/L (0-15)
[2025-08-29 03:15] LABS: Troponin 5 2HR Delta -1.93 ABS# (0-10)
[2025-08-29 04:06] VITALS: BP 149/84; PULSE 85; O2SAT 93
== END 2025-08-29 04:07 | disposition home or self-care (01) ==
PROVIDERS: Emergency Provider Physician Assistant
DX: J18.9 Pneumonia, unspecified organism (principal); Z79.84 Long term (current) use of oral hypoglycemic drugs; Z11.52 Encounter for screening for COVID-19; Z87.891 Personal history of nicotine dependence; I10 Essential (primary) hypertension
CPT/HCPCS: 36415; 36416; 71045; 80053; 81001; 82962; 84484; 85025; 87637; 93005; 96374; 96375; 96376; 99285; J1100; J1815; J3010; J7030; J9999

== ENCOUNTER 2025-08-30 15:46 | Inpatient (IN) | payer MEDICARE, SELFPAY ==
[2025-08-30] VITALS (21 sets, daily range): BP systolic 108–207; BP diastolic 68–113; PULSE 75–103; RESP 16–25; TEMP 36.8–37.3; O2SAT 89–99; BMI 35.4; BMI 34.1
--- NOTE | 2025-08-30 15:46 | XRR_ITS ---
PROCEDURE INFORMATION: Exam: XR Chest Exam date and time: 08/30/2025 3:50 PM Age: 74 years old Clinical indication: Shortness of breath TECHNIQUE: Imaging protocol: Radiologic exam of the chest. Views: 1 view. COMPARISON: CR (CHEST, ) 08/28/2025 11:10 PM FINDINGS: Lungs: Streaky opacity at the right lung base. The left lung is clear. Pleural spaces: Small right pleural effusion. Heart/Mediastinum: Heart size can not be accurately assessed in this projection. Diaphragm: Right hemidiaphragm elevation. Bones/joints: Chronic left clavicular fracture deformity. XR/XR chest 1V portable [id number] IMPRESSION: 1. Streaky opacity in the right lung base may represent atelectasis or pneumonia. 2. Small right pleural effusion.
--- NOTE | 2025-08-30 15:51 | ECG_ITS ---
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 Measurements Intervals [place] Rate: 86 P: -11 MO: 132 QRS: -55 QRSD: 102 T: 59 QT: 384 QTc: 461 Interpretive Statements SINUS RHYTHM WITH OCCASIONAL SUPRAVENTRICULAR PREMATURE COMPLEXES LEFT ANTERIOR FASCICULAR BLOCK [QRS AXIS <= -45, QR IN I, RS IN II] MODERATE VOLTAGE CRITERIA FOR LVH, CONSIDER NORMAL VARIANT [MEETS CRITERIA IN ONE OF: R(aVL), S(V1), R(V5), R(V5/V6)+S(V1)] POSSIBLE ANTEROSEPTAL MYOCARDIAL INFARCTION , OF INDETERMINATE AGE [30 ms Q WAVE IN V1-V4] Compared to ECG 08/29/2025 01:49:28 Sinus arrhythmia no longer present Myocardial infarct finding still present Electronically Signed On 08-30-2025 23:39:37 LOAN SERVICE OFFICER by Edson Galvan M.D. [id number]
--- NOTE | 2025-08-30 15:52 | ED_ITS ---
HPI - SOB/Dyspnea 2 General: Chief Complaint: Chest Pain Stated Complaint: SOB, R side Chest pain Time Seen by Provider: 08/30/25 15:46 History of Present Illness: HPI Narrative: 74-year-old man with a history of obesit y, type 2 diabetes, chronic back pain, hyperlipidemia, hypertension, anxiety and depression who presents to the emergency room by ambulance with right sided chest pain and shortness of breath. He says he was seen here couple days ago and diagnosed with pneumonia and sent home on antibiotics. Related Data Home Medications ?Medication ?Instructions ?Recorded ?Confirmed acetaminophen 500 mg tablet 1,000 mg PO Q6H PRN Pain 0 11/12/20 08/30/25 (Tylenol Extra Strength) multivitamin 1 tab PO DAILY@10 11/12/20 1 10/30/24 saw palmetto 500 mg capsule 1,000 mg PO BID 11/12/20 1 10/30/24 vitamin B complex 1 tab PO DAILY 11/12/2003/19 Previous Rx's ?Medication ?Instructions ?Recorded amoxicillin 875 mg-potassium 1 tab PO BID 10 days #20 tabs 08/29/25 clavulanate 125 mg tablet doxycycline hyclate 100 mg tablet 100 mg PO BID 10 day s #20 tabs 08/29/25 Allergies Allergy/AdvReac Type Severity Reaction Status Date / Time No Known Allergies Allergy Verified 08/28/25 21:59 Review of Systems 2 Narrative: Constitutional symptoms: Negative except as documented in HPI. Skin symptoms: Negative except as documented in HPI. Eye symptoms: Negative except as documented in HPI. ENMT symptoms: Negative except as documented in HPI. Respiratory symptoms: Negative except as documented in HPI. Cardiovascular symptoms: Negative except as documented in HPI. Gastrointestinal symptoms: Negative except as documented in HPI. Genitourinary symptoms: Negative except as documented in HPI. Musculoskeletal symptoms: Negative except as documented in HPI. Neurologic symptoms: Negative except as documented in HPI. Psychiatric symptoms: Negative except as documented in HPI. Endocrine symptoms: Negative except as documented in HPI. PFSH ED 2 PFSH: Medical History (Updated 08/30/25 @ 18:27 by Radha Garrido MD) Type 2 diabetes mellitus Liver cirrhosis Hepatitis B Meningoencephalitis Altered mental status Delirium due to general medical condition Chronic lumbar radiculopathy Chronic low back pain Opioid contract exists Encounter for long-term use of opiate analgesic Controlled diabetes mellitus with hyperglycemia, without long-term current use of insulin Hypertriglyceridemia Benign hypertension Vitamin D insufficiency Anxiety and depression DDD (degenerative disc disease), lumbar Surgical History History of squamous cell carcinoma excision Left hand 07/2019 History of appendectomy History of colonoscopy 2016 Family History Mother Cancer Dementia Father Heart disease Social History Smoking and tobacco/nicotine status: former use of tobacco/nicotine Second hand smoke exposure: No Alcohol intake: current Alcohol intake frequency: 0-2 Drinks per Day Alcohol type: beer Substance/Drug Use: never Caregiver/support person: No Lives independently: Yes Marital status: Current gender identity: Male Physical Exam 2 Narrative: EXAM NARRATIVE: General: Alert, no acute distress. Skin: Warm, dry. Head: Normocephalic, atraumatic. Neck: Supple, trachea midline. Eye: Extraocular movements are intact. Ears, nose, mouth and throat: mucosa moist. Cardiovascular: Regular, Normal peripheral perfusion. Respiratory: Lungs are clear to auscultation, respirations are non-labored, breath sounds are equal, Symmetrical chest wall expansion. Gastrointestinal: Soft, Nontender, Non distended Musculoskeletal: Normal ROM, no deformity. Neurological: Alert and oriented, No focal neurological deficit observed. Psychiatric: Cooperative, appropriate mood & affect. Course 2 Vital Signs: Vital signs: Vital Signs Temperature 98.3 F 08/30/25 15:48 Pulse Rate 91 08/30/25 16:36 Respiratory Rate 22 H 08/30/25 15:58 Blood Pressure 147/68 08/30/25 17:59 Pulse Oximetry 90 08/30/25 18:40 Oxygen Delivery Me thod Room Air 08/30/25 18:40 MDM - SOB/Dyspnea Medical Decision Making Medical decision making: Patient's reason for coming to the emergency room chest pain. Social determinants: Patient is retired I reviewed the patient's medical record. 74-year-old man with a history of obesity, type 2 diabetes, chronic back pain, hyperlipidemia, hypertension, anxiety and depression I reviewed the patient's current home meds Alternate historians: None Differential diagnosis for patient with chest pain includes but is not limited to and based on the above HPI, review of systems and physical exam: Pneumonia. unstable angina. angina. Acute coronary syndrome / DC. Pulmonary embolism. Costochondritis / musculoskeletal. Pleurisy. Pericarditis. Esophageal spasm. Pancreatitis. Cholecystitis. Orders placed to evaluate differential diagnosis based on the above differential, HPI and physical exam EKG: Time 1551. Rate 86. Normal sinus rhythm, nonspecific ST changes. PVCs. Left anterior fascicular block, This was reviewed and interpreted by myself the ER physician at 1558 EKG: Time 1750. Rate 91.. Normal sinus rhythm, nonspecific ST changes. PVCs. Left anterior fascicular block, This was reviewed and interpreted by myself the ER physician at at 1755. No significant changes from previous EKG Lab Review: Laboratory results were reviewed and interpreted by myself the emergency room physician. Worsening leukocytosis. No anemia. No renal failure. Blood glucose is high at 400. Bicarb is low at 15. ABG has a normal pH but bicarb is low so likely early DKA. Chest x-ray: Streaky opacity of the right lower lung with a pleural effusion. This appears worsened from previous to me. This was reviewed and interpreted by myself the emergency room physician. I also reviewed the radiology report. CT of the chest: Loculated right pleural effusion with atelectasis. Pleural- based structure in the right middle lobe. No PE. Ascending thoracic aortic aneurysm. This was reviewed and interpreted by myself the emergency room physician. I also reviewed the radiology report. Assessment of risk: Level of risk: Moderate Hospitalization considerations: Patient is being admitted. Consultation: I spoke with Dr. Grady who agrees to admission. Assessment and plan: DKA Loculated pleural effusion Chest pain Pneumonia ?DKA protocol. Fluids and insulin bolus were given. -2 L normal saline bolus. Fluid volumes based on ideal body weight. -Broad-spectrum antibiotics were administered. Cefepime and Levaquin were given -Sepsis quality measures. -Lactic acid with a reflex was ordered. -Blood cultures were ordered. ?I reevaluated the patient's volume status after sepsis fluids were given. -I discussed the patient with the hospitalist on-call who is admitting the patient. - Discussed findings and plan with patient. Answered any questions. - All laboratory values were reviewed and interpreted personally by myself, the ER physician - All imaging was reviewed and interpreted personally by myself, the ER physician. - Evaluation and treatment of this problem were appropriate in the emergency setting Critical Care: -I spent a total of 40 minutes of critical care time managing the patient, independent of any other practitioner. -The time involved in the performance of separately reportable procedures was not counted towards critical care time. Lab Data 08/30/25 15:59 08/30/25 15:59 Labs/Radiology: Radiology Impressions Chest X-Ray 08/30/25 15:46 IMPRESSION: 1. Streaky opacity in the right lung base may represent atelectasis or pneumonia. 2. Small right pleural effusion. Chest CTA 08/30/25 17:01 IMPRESSION: 1. Loculated right pleural effusion with adjacent atelectasis. Pleural-based structure in the right middle lobe measuring up to 3.6 cm and measuring above simple fluid attenuation, possibly representing loculated exudative fluid. Mass is not excluded. 2. No pulmonary embolism. 3. Dilated ascending thoracic aorta up to 4.7 cm. Recommend clinical assessment and follow-up. Laboratory Results WBC 16.64 10^3/uL (3.29-11.43) H 08/30/25 15:59 RBC 5.97 10^6/uL (3.85-5.65) H 08/30/25 15:59 Hgb 17.40 g/dL (11.27-16.99) H 08/30/25 15:59 Hct 51.6 % (37-53) 08/30/25 15:59 MCV 86.4 fl (82-101) 08/30/25 15:59 MCH 29.1 pg (27-33) 08/30/25 15:59 MCHC 33.7 g/dL (30-55) 08/30/25 15:59 RDW 13.2 % (12.1-15.1) 08/30/25 15:59 Plt Count 496 10^3/cmm (157-399) H 08/30/25 15:59 MPV 9.7 fL (7.4-10.4) 08/30/25 15:59 Neut % (Auto) 82.5 % 08/30/25 15:59 Lymph % (Auto) 7.1 % 08/30/25 15:59 [place] % (Auto) 8.2 % 08/30/25 15:59 Eos % (Auto) 0.1 % 08/30/25 15:59 Baso % (Auto) 0.3 % 08/30/25 15:59 Neut # (Auto) 13.73 10^3/uL (1.8-7.7) H 08/30/25 15:59 Lymph # (Auto) 1.2 10^3/uL (0.8-4.8) 08/30/25 15:59 [place] # (Auto) 1.4 10^3/uL (0.2-0.9) H 08/30/25 15:59 Eos # (Auto) 0.0 10^3/uL (0.0-0.8) 08/30/25 15:59 Baso # (Auto) 0.1 10^3/uL (0.0-0.1) 08/30/25 15:59 Nucleated RBC % (auto) 0 % 08/30/25 15:59 Nucleated RBCs # 0.0 /100WBC 08/30/25 15:59 Specimen Type Arterial 08/30/25 15:51 Sample Site Radial, right 08/30/25 15:51 ABG pH 7.36 (7.35-7.45) 08/30/25 15:51 ABG pCO2 31.2 mmHg (35-45) L 08/30/25 15:51 ABG pO2 57.3 mmHg (80.0-100.0) L 08/30/25 15:51 ABG PO2/FiO2 Ratio 272 08/30/25 15:51 ABG HCO3 17.4 mmol/L (22-26) L 08/30/25 15:51 ABG O2 Saturation 91.1 08/30/25 15:51 ABG Base Excess -6.7 mmol/L (-2.0-2.0) L 08/30/25 15:51 Jatinder Test Pos 08/30/25 15:51 A-a O2 Gradient 7.0 mmHg (5-10) 08/30/25 15:51 Hematocrit 52.9 % (42-52) H 08/30/25 15:51 Hgb O2 Saturation 89.1 % (95-100) L 08/30/25 15:51 Carboxyhemoglobin 1.3 %THgb (0.4-20.1) 08/30/25 15:51 Methemoglobin 1.0 % (0.4-1.5) 08/30/25 15:51 Total Hemoglobin 17.3 g/dL (14-18) 08/30/25 15:51 Sodium 136.0 mmol/L (131-143) 08/30/25 15:51 Potassium 4.5 mmol/L (3.5-5.0) 08/30/25 15:51 Glucose 413.0 mg/dL (70-115) H 08/30/25 15:51 Ionized Calcium 1.2 mmol/L (1.1-1.4) 08/30/25 15:51 O2 Delivery Device Room air 08/30/25 15:51 FiO2 21.0 % 08/30/25 15:51 Garbage Collector ID [place] 08/30/25 15:51 Sodium 137 mmol/L (136-145) 08/30/25 15:59 Potassium 4.7 mmol/L (3.5-5.1) 08/30/25 15:59 Chloride 94 mmol/L (98-107) L 08/30/25 15:59 Carbon Dioxide 15 mmol/L (22-29) L 08/30/25 15:59 Anion Gap 32.7 (5-19) H 08/30/25 15:59 BUN 23 mg/dL (8-23) 08/30/25 15:59 Creatinine 0.9 mg/dL (0.7-1.2) 08/30/25 15:59 GFR Calculation Not Reportable 08/30/25 15:59 Glucose 400 mg/dL (65-115) H 08/30/25 15:59 POC Glucose 393 mg/dL (70-110) H 08/30/25 20:09 Calculated Osmolality 304 mOsm/kg (285-295) H 08/30/25 15:59 Lactic Acid 2.8 mmol/L (0.5-2.2) H 08/30/25 15:59 Lactic Acid (Sepsis) 2.8 mmol/L (0.5-2.2) H 08/30/25 18:36 Calcium 9.8 mg/dL (8.5-10.5) 08/30/25 15:59 Iron 30 ug/dL (59-158) L 08/30/25 15:59 TIBC 190 mcg/dl 08/30/25 15:59 % Saturation 15.7 % (20-50) L 08/30/25 15:59 Unsat Iron Binding 160 ug/dL (112-347) 08/30/25 15:59 Total Bilirubin 0.8 mg/dL (0.15-1.2) 08/30/25 15:59 AST 17 U/L (0-40) 08/30/25 15:59 ALT 27 U/L (0-41) 08/30/25 15:59 Alkaline Phosphatase 188 U/L (40-130) H 08/30/25 15:59 Troponin T Baseline 14 ng/L (0-15) 08/30/25 15:59 Troponin T 120 Minute 14.58 ng/L (0-15) 08/30/25 17:07 Delta Troponin T 0.58 ABS# (0-10) 08/30/25 17:07 C-Reactive Protein 451.5 mg/L (0.0-4.9) H 08/30/25 15:59 NT-Pro-B Natriuret Pep 661 pg/mL (0-125) H 08/30/25 15:59 Total Protein 7.0 g/dL (6.6-8.7) 08/30/25 15:59 Albumin 3.8 g/dL (3.5-5.2) 08/30/25 15:59 Globulin 3.2 g/dL (1.3-4.6) 08/30/25 15:59 Vitamin B12 1924 pg/mL (232-1245) H 08/30/25 15:59 Procalcitonin 0.13 ng/mL (0-0.5) 08/30/25 15:59 Ethyl Alcohol < 10 mg/dL (0-10) 08/30/25 17:07 Serum Ketones Positive (Negative) H 08/30/25 18:36 Influenza A (PCR) Negative (Negative) 08/30/25 16:10 Influenza Type B (PCR) Negative (Negative) 08/30/25 16:10 RSV (PCR) Negative (Negative) 08/30/25 16:10 SARS-CoV-2 (PCR) Negative (Negative) 08/30/25 16:10 All radiology interpretation(s) finalized by discharge Discharge Plan Discharge Patient Disposition: Admitted As Inpatient Clinical Impression: Pneumonia, Hypoxemia, DKA (diabetic ketoacidosis) Condition: Stable Coding Level of Care Code ED [employer] Implement Mechanic for Екатерина Castillo
[2025-08-30 16:02] LABS: ABG PCO2 31.2 mmHg (35-45); ABG PH Result 7.36 (7.35-7.45); Alveolar-Arterial Oxygen Gradi 7.0 mmHg (5-10); Arterial Blood Gas Hematocrit 52.9 % (42-52); Blood Gas Allen Test Pos; Blood Gas Operator Identificat WALCI; Blood Gas Sample Site Radial, right; Blood Gas Sample Type Arterial; Carboxyhemoglobin 1.3 %THgb (0.4-20.1); Glucose Level-ABG 413.0 mg/dL (70-115); HCO3 ABG 17.4 mmol/L (22-26); Ionized Calcium Level - ABG 1.2 mmol/L (1.1-1.4); Methemoglobin 1.0 % (0.4-1.5); Oxygen Saturation ABG 91.1; PO2 ABG 57.3 mmHg (80.0-100.0); PO2 FiO2 Ratio Arterial Blood 272; Potassium Level - ABG 4.5 mmol/L (3.5-5.0); Sodium Level - ABG 136.0 mmol/L (131-143)
[2025-08-30 16:19] LABS: Hematocrit 51.6 % (37-53); Hemoglobin 17.40 g/dL (11.27-16.99); Mean Corpuscular HGB Conc 33.7 g/dL (30-55); Mean Corpuscular Hemoglobin 29.1 pg (27-33); Mean Corpuscular Volume 86.4 fl (82-101); Nucleated Red Blood Cells % 0 %; Platelet Count 496 10^3/cmm (157-399); Red Blood Count 5.97 10^6/uL (3.85-5.65); White Blood Count 16.64 10^3/uL (3.29-11.43)
--- NOTE | 2025-08-30 16:28 | PC.PHAR ---
pt states he only takes supplements and the 2 new prescriptions for antibiotics. Removed from chart are the following: Lexapro 20mg last fill 02/19/21 Flomax 0.4 last fill 04/27/23 Januvia 100mg last fill 02/19/21 Metformin 500 er last fill 02/19/21 Zofran 4mg odt last fill 04/27/23 Oxycodone 5mg last fill 04/27/23 Tramadol 50mg last fill 11/12/20
[2025-08-30 16:32] LABS: Lactic Sepsis W/Reflex 2.8 mmol/L (0.5-2.2)
[2025-08-30] MEDS: morphine 4 mg/mL SDV 1 mL IVP (16:34)
[2025-08-30 16:35] LABS: Troponin(5th) Baseline 14 ng/L (0-15)
[2025-08-30] MEDS: ondansetron 2 mg/ML SDV 2 mL 4 MG IVP (16:35)
[2025-08-30 16:43] LABS: NT Pro B Type Natriuretic Pept 661 pg/mL (0-125); Procalcitonin 0.13 ng/mL (0-0.5)
[2025-08-30 16:47] LABS: Respiratory Syncytial Virus Ce NEGATIVE (Negative); SARS-CoV-2 PCR NEGATIVE (Negative)
[2025-08-30 16:54] LABS: Alanine Aminotransferase 27 U/L (0-41); Albumin Level 3.8 g/dL (3.5-5.2); Alkaline Phosphatase 188 U/L (40-130); Anion Gap 32.7 (5-19); Aspartate Amino Transferase 17 U/L (0-40); Blood Urea Nitrogen 23 mg/dL (8-23); Calcium 9.8 mg/dL (8.5-10.5); Carbon Dioxide 15 mmol/L (22-29); Chloride 94 mmol/L (98-107); Creatinine Clr Calc Pharmacy 87.5567; Globulin 3.2 g/dL (1.3-4.6); Glucose 400 mg/dL (65-115); Osmolality Calculated 304 mOsm/kg (285-295); Potassium 4.7 mmol/L (3.5-5.1); Sodium 137 mmol/L (136-145); Total Protein 7.0 g/dL (6.6-8.7)
--- NOTE | 2025-08-30 17:01 | CTR_ITS ---
PROCEDURE INFORMATION: Exam: CTA Chest With Contrast Exam date and time: 08/30/2025 6:03 PM Age: 74 years old Clinical indication: Other: Hypoxemia, tachycardia TECHNIQUE: Imaging protocol: Computed tomographic angiography of the chest with contrast. Exam focused on the arteries. 3D rendering (Not supervised by radiologist): MIP and/or 3D reconstructed images were created by the technologist. Radiation optimization: All CT scans at this facility use at least one of these dose optimization techniques: automated exposure control; mA and/or kV adjustment per patient size (includes targeted exams where dose is matched to clinical indication); or iterative reconstruction. Contrast material: [id number]; Contrast volume: 100 ml; Contrast route: INTRAVENOUS (IV); COMPARISON: CR XR chest 1V portable [id number] 08/30/2025 3:50 PM RADIATION DOSE METRICS: Total DLP (mGy-cm): 530.92 FINDINGS: Pulmonary arteries: No pulmonary embolism. Aorta: Intimal calcifications of the aorta and it proximal branch vessels. The ascending aorta measures up to 4.7 cm. No aortic dissection. Trachea: Tracheal secretions. Lungs: There is a pleural-based structure in the right middle lobe measuring 3.6 x 3.4 measuring above simple fluid attenuation (series 7, image 294). Sub 4 mm nodule in the left upper lobe. Linear atelectasis at the left lung base. Pleural spaces: Loculated right pleural effusion with areas of atelectasis. Pleural thickening at the left lung base. Heart: Heart size is normal. No pericardial effusion. Lymph nodes: No supraclavicular, axillary, mediastinal, or hilar adenopathy. Diaphragm: Small hiatal hernia. Spleen: Nonspecific splenic calcifications. Kidneys: Nonspecific bilateral perinephric fat stranding Bones/joints: Chronic right posterior 10th rib fracture and multiple right anterolateral rib fractures. Degenerative changes of the spine. Soft tissues: Unremarkable. CT/CT angio chest PE protcl [id number] IMPRESSION: 1. Loculated right pleural effusion with adjacent atelectasis. Pleural-based structure in the right middle lobe measuring up to 3.6 cm and measuring above simple fluid attenuation, possibly representing loculated exudative fluid. Mass is not excluded. 2. No pulmonary embolism. 3. Dilated ascending thoracic aorta up to 4.7 cm. Recommend clinical assessment and follow-up.
[2025-08-30] MEDS: levofloxacin-dextrose 5 % 750 MG/150 ML PREMIX 100 MG IV (17:28)
--- NOTE | 2025-08-30 17:50 | ECG_ITS ---
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 Measurements Intervals [place] Rate: 91 P: 33 WV: 179 QRS: -52 QRSD: 98 T: 66 QT: 364 QTc: 450 Interpretive Statements SINUS RHYTHM WITH SINUS ARRHYTHMIA LEFT ANTERIOR FASCICULAR BLOCK [QRS AXIS <= -45, QR IN I, RS IN II] MODERATE VOLTAGE CRITERIA FOR LVH, CONSIDER NORMAL VARIANT [MEETS CRITERIA IN ONE OF: R(aVL), S(V1), R(V5), R(V5/V6)+S(V1)] POSSIBLE ANTEROSEPTAL MYOCARDIAL INFARCTION , PROBABLY OLD [30 ms Q WAVE IN V1-V4] Compared to ECG 08/30/2025 15:51:31 No significant changes Electronically Signed On 08-30-2025 23:50:29 PREVENTIVE MAINTENANCE COORDINATOR by Edson Galvan M.D. [email or web address]
[2025-08-30 17:54] LABS: Reflex Lactate Order REFLEX LACTIC ORDERD
[2025-08-30 18:05] LABS: Troponin 5 2HR 14.58 ng/L (0-15); Troponin 5 2HR Delta 0.58 ABS# (0-10)
[2025-08-30] MEDS: iohexol 350 mg/mL 500 mL Btl (per mL) IV (18:12)
--- NOTE | 2025-08-30 18:23 | P.HP_ITS ---
Providers/Chief Complaint 2 Chief Complaint: SOB, R side Chest pain History of Present Illness Buck Tee is a 74 year old male with past medical history of type 2 diabetes mellitus, liver cirrhosis/hepatitis C, depression, not on any medication because of depression presents to the ER today because of right-sided chest pain which has been getting worse along with difficulty in breathing on minimal exertion. Patient states he was in the ER few days ago and was diagnosed of right sided pneumonia because of chest pain. He was started on antibiotics. As the pain was getting worse so he presented the ER today. He states he does know that he has diabetes and depression but is too tired to take his medication, follow-up with primary care provider and feels hopeless and has given up/stop taking his medications. He denies any active suicidal or homicidal ideation. Review of Systems 2 General: Reports: 10 or more systems reviewed and unremarkable except in HPI and below Const: Denies: fever(s), chills, body aches, change in appetite, change in weight, malaise, night sweats, diaphoresis, change in sleep pattern, daytime sleepiness or snoring Eyes: Denies: change in vision, blurry vision, photophobia, eye discomfort or eye discharge ENMT: Denies: throat pain, enlarged tonsils, hoarseness, mouth pain, oral sores, dry mouth, tinnitus, nasal congestion or post nasal drip Card: Denies: chest pain, palpitations, irregular heart rhythm, edema, swelling of feet/ankles, lightheadedness, syncope, pre-syncope, dyspnea on exertion, orthopnea, leg pain with exertion or acrocyanosis Resp: Denies: dyspnea, productive cough, non-productive cough, wheezing, stridor, pain on inspiration, change in phlegm color, hemoptysis or chest congestion GI: Denies: abdominal pain, nausea, vomiting, hematemesis, coffee ground emesis, dysphagia, heartburn, diarrhea, constipation, bloating, GI cramping, change in bowel habits, pain on defecation, hematochezia or melena : Denies: flank pain, difficulty urinating, dysuria, urinary frequency, urinary urgency, urinary hesitancy, urinary dribbling, difficulty starting urination, change in urine stream, nocturia or hematuria Musc: Denies: neck pain, back pain, extremity pain, joint pain, joint swelling, joint redness, joint stiffness or limited range of motion Neuro: Denies: headache(s), numbness in extremities, weakness in extremities, sensory changes, lack of coordination, difficulty walking, frequent falls, dizziness, vertigo, confusion, Slurred speech present, difficulty communicating thoughts or seizure-like activity Psych: Denies: anxiety, depression, mood swings, panic attacks, hopelessness or irritability Endo: Denies: polyuria, polydipsia, tired all the time, cold intolerance, excessive sweating, flushing or heat intolerance [place]/Lymph: Denies: easy bruising or easy bleeding All/Imm: Denies: tongue swelling, facial swelling or acute wheezing Medications/Allergies Home Medications ?Medication ?Instructions ?Recorded ?Confirmed ?Last Taken ?Type acetaminophen 500 mg tablet 1,000 mg PO Q6H PRN Pain 0 11/12/20 08/30/25 11/11/20 History (Tylenol Extra Strength) multivitamin 1 tab PO DAILY@10 11/12/20 1 10/30/24 08/30/25 History saw palmetto 500 mg capsule 1,000 mg PO BID 11/12/20 1 10/30/24 08/30/25 History vitamin B complex 1 tab PO DAILY 11/12/2003/1908/30/25 History amoxicillin 875 mg-potassium 1 tab PO BID 10 days #20 tabs 08/29/25 08/30/25 08/30/25 Rx clavulanate 125 mg tablet doxycycline hyclate 100 mg tablet 100 mg PO BID 10 day s #20 tabs 08/29/25 08/30/25 08/30/25 Rx Allergies Allergy/AdvReac Type Severity Reaction Status Date / Time No Known Allergies Allergy Verified 08/28/25 21:59 PFSH Acute 2 PFSH: Medical History (Updated 08/30/25 @ 18:27 by Radha Garrido MD) Type 2 diabetes mellitus Liver cirrhosis Hepatitis B Meningoencephalitis Altered mental status Delirium due to general medical condition Chronic lumbar radiculopathy Chronic low back pain Opioid contract exists Encounter for long-term use of opiate analgesic Controlled diabetes mellitus with hyperglycemia, without long-term current use of insulin Hypertriglyceridemia Benign hypertension Vitamin D insufficiency Anxiety and depression DDD (degenerative disc disease), lumbar Surgical History History of squamous cell carcinoma excision Left hand 07/2019 History of appendectomy History of colonoscopy 2016 Family History Mother Cancer Dementia Father Heart disease Social History Smoking and tobacco/nicotine status: former use of tobacco/nicotine Second hand smoke exposure: No Alcohol intake: current Alcohol intake frequency: 0-2 Drinks per Day Alcohol type: beer Substance/Drug Use: never Caregiver/support person: No Lives independently: Yes Marital status: Current gender identity: Male Vitals/I&O/Wt Last Vital Signs Temp 98.3 F 08/30/25 15:48 Pulse 91 08/30/25 16:36 Resp 22 H 08/30/25 15:58 BP 147/68 08/30/25 17:59 Pulse Ox 99 08/30/25 18:00 O2 Del Method Room Air 08/30/25 18:00 Weight last 48 hrs Weight 108.862 kg Physical Exam 2 Narrative: General: No acute distress, AO x3 HEENT: PERRLA, pupils bilaterally equal and reactive Chest: Normal vesicular breath sounds, no added sounds, equal good air entry bilaterally CVS: S1-S2 regular, no murmurs, no tachycardia, no gallops, no rubs Abdomen: Soft, nontender, no organomegaly, bowel sounds present Neuro: No focal deficits, no facial deformity, AO x3, power 5/5 in all limbs Data 08/30/25 15:59 08/30/25 15:59 Micro: Microbiology 08/30/25 16:02 Blood Culture - Preliminary Blood SPECIMEN COLLECTED 08/30/25 15:59 Blood Culture - Preliminary Blood SPECIMEN COLLECTED A&P Assessment and plan 1. Right lower lobe pneumonia: 2. High anion gap metabolic acidosis: 3. Hyperglycemia: 4. Failure of outpatient treatment: 5. Type 2 diabetes mellitus: 6. Major depressive disorder, recurrent: 7. DKA (diabetic ketoacidosis): Plan: 74-year-old gentleman history of type 2 diabetes mellitus being treated for pneumonia as an outpatient presents to the ER today because of worsening symptoms. Right lower lobe pneumonia: Failure to outpatient treatment. CTA done in the ER. Negative for PE. Concern for right-sided pleural effusion. Concern for loculated effusion. Cannot rule out empyema. Check sputum culture, urine Legionella, bacterial antigen. Check MRSA swab. Geoffrey started on IV vancomycin and Zosyn. If MRSA swab negative will discontinue vancomycin. Aggressive pulmonary toilet with I-S and Acapella. Pulmicort twice daily, DuoNeb every 6 hour. Oxygen supplementation keeping saturation over 90%. Right-sided pleural effusion: Complicated effusion. Will plan for ultrasound- guided thoracentesis further evaluation to rule out empyema. High anion gap metabolic acidosis/hyperglycemia: Anion gap of 28. Hyperglycemia. Check ketones. If positive will start on insulin drip as per DKA protocol. Will check BMP every 4 hours. Monitor potassium every 4 hours with target of around 4. Normal saline at 100 cc/h. Switch fluid to D5 NS if blood sugars below 250 and anion gap still open. Will keep NPO. Type 2 diabetes mellitus: Check A1c. Treatment as above if positive for ketones. Depression: Denies any suicidal or homicidal ideation. Agreeable to see behavioral health physician during hospitalization. Will consult for psychiatric evaluation. Can start on Lexapro for now. Continue other chronic home medications. Full code Carb consistent diet/n.p.o. DKA Protonix OPD prophylaxis Lovenox for DVT prophylaxis. PDMP PDMP Reviewed: Not Reviewed Attestations 2 Medical Necessity Statement*: Admission for more than 2 midnights for management of high anion gap metabolic acidosis with concern for DKA, right lower lobe pneumonia with failure to outpatient treatment Critical Care Time: The high probability of a clinically significant, sudden or life threatening deterioration of the patient's [endocrine, pulmonary, infectious] system(s) required my full and direct attention, intervention and personal management. The critical care time is as shown. This time is in addition to time spent performing any reported procedures but includes the following: [x] Data and vital sign review and interpretation [x] Patient assessment, examination and intervention [x] Documentation [x] Medication orders and management Critical Care Time (min): 70 Coding Level of Care Code Critical Care >/= 30 minutes Critical care time (in minutes): 70 The high probability of a clinically significant, sudden or life threatening deterioration, as referenced in this documentation, required my full and direct attention, intervention and personal management. The critical care time shown is in addition to time spent performing any reported separately billable procedures and includes the following: [x] Data and vital sign review and interpretation [x ] Patient assessment, examination and intervention [x] Medication orders and management [x] Patient/Family updates as able [x] Care Coordination and Documentation. Diagnoses Right lower lobe pneumonia J18.9 High anion gap metabolic acidosis E87.29 Hyperglycemia R73.9 Failure of outpatient treatment Z78.9 Type 2 diabetes mellitus E11.9 Major depressive disorder, recurrent F33.9 DKA (diabetic ketoacidosis) E11.10
[2025-08-30] MEDS: insulin regular-human 100 units/1 mL 10 UNIT IVP (18:29)
[2025-08-30] MEDS: cefepime 2,000 mg SDV 2000 MG IVP (18:30)
[2025-08-30 18:56] LABS: Iron 30 ug/dL (59-158); Total Iron Binding Capacity 190 mcg/dl; Unsaturated Iron Binding 160 ug/dL (112-347)
[2025-08-30 19:10] LABS: Ketone (Acetest) Serum Positive (Negative)
[2025-08-30 19:12] LABS: Vitamin B12 1924 pg/mL (232-1245)
[2025-08-30 19:13] LABS: Lactic Acid level (Lactate) 2.8 mmol/L (0.5-2.2)
[2025-08-30 19:37] LABS: Alcohol Level < 10 mg/dL (0-10)
[2025-08-30] MEDS: piperacillin-tazobactam 3.375 GM in sodium chloride 0.9% (plus) 50 ML IV (20:07)
--- NOTE | 2025-08-30 20:34 | ECG_ITS ---
[employer] Test Date: 2025-08-30 Pat Name: Buck Tee Department: Room: Gender: Male Last Repairer: : 1950 Requested By: Jake Salvador Order Number: [id number] Sanchez MD: Edson Galvan M.D. Measurements Intervals Herod Rate: 88 P: -3 MA: 113 QRS: -43 QRSD: 93 T: 14 QT: 354 QTc: 430 Interpretive Statements SINUS RHYTHM WITH SHORT MA INTERVAL WITH OCCASIONAL VENTRICULAR PREMATURE COMPLEXES. LEFT AXIS DEVIATION [QRS AXIS < -30] PATTERN CONSISTENT WITH PULMONARY DISEASE MINIMAL VOLTAGE CRITERIA FOR LVH, CONSIDER NORMAL VARIANT [MEETS CRITERIA IN ONE OF: R(aVL), S(V1), R(V5), R(V5/V6)+S(V1)] SEPTAL MYOCARDIAL INFARCTION , PROBABLY OLD [40+ ms Q WAVE IN V1/V2] Compared to ECG 08/30/2025 17:50:30 Ventricular premature complex(es) now present Short MA interval now present. Left-axis deviation now present Sinus arrhythmia no longer present Left anterior fascicular block no longer present Myocardial infarct finding still present Electronically Signed On 08-30-2025 23:37:19 GROCERY DELIVERER by Edson Galvan M.D. [email or web address]
[2025-08-30 20:56] LABS: PCP Screen Urine Negative (Negative)
[2025-08-30 21:01] LABS: Add Urine Microscopic? YES; Glucose Urine UA 2+ (Normal); Nitrate Urine Negative (Negative); Specific Gravity, Urine 1.065 (1.005-1.030)
--- NOTE | 2025-08-30 21:04 | PHA.VACGOAL ---
Vancomycin Goal - Goal Vancomycin Goal:: 15-20 mg/L Vancomycin Indication:: Pneumonia - Therapy Current therapy:: Pip/Tazo Day of therpy:: Day []of [] . Actual body weight (kg): 240 lb - Data Labs: WBC 16.64 10^3/uL (3.29-11.43) H 08/30/25 15:59 RBC 5.97 10^6/uL (3.85-5.65) H 08/30/25 15:59 Hgb 17.40 g/dL (11.27-16.99) H 08/30/25 15:59 Hct 51.6 % (37-53) 08/30/25 15:59 MCV 86.4 fl (82-101) 08/30/25 15:59 MCH 29.1 pg (27-33) 08/30/25 15:59 MCHC 33.7 g/dL (30-55) 08/30/25 15:59 RDW 13.2 % (12.1-15.1) 08/30/25 15:59 Sodium 137 mmol/L (136-145) 08/30/25 15:59 Potassium 4.7 mmol/L (3.5-5.1) 08/30/25 15:59 Chloride 94 mmol/L (98-107) L 08/30/25 15:59 Carbon Dioxide 15 mmol/L (22-29) L 08/30/25 15:59 Anion Gap 32.7 (5-19) H 08/30/25 15:59 BUN 23 mg/dL (8-23) 08/30/25 15:59 Creatinine 0.9 mg/dL (0.7-1.2) 08/30/25 15:59 GFR Calculation Not Reportable 08/30/25 15:59 Last dialysis session:: N/A Treatment plan:: new consult Regimen:: NO LOADING DOSE PER PROVIDER. STARTED ON MAINTENANCE DOSE OF 1750 MG Q12H PER DOSING PROTOCOL. Follow up:: WILL CONTINUE TO MONITOR AND FOLLOW UP DAILY
[2025-08-30] MEDS: INSULIN REGULAR IN 0.9 % NACL 100 UNIT/100 ML BAG 10.5 UNIT IV (22:31)
[2025-08-30 23:05] LABS: Anion Gap 22.9 (5-19); Blood Urea Nitrogen 23 mg/dL (8-23); Calcium 8.6 mg/dL (8.5-10.5); Carbon Dioxide 18 mmol/L (22-29); Chloride 100 mmol/L (98-107); Creatinine Clr Calc Pharmacy 99.5958; Glucose 320 mg/dL (65-115); Osmolality Calculated 298 mOsm/kg (285-295); Potassium 4.9 mmol/L (3.5-5.1); Sodium 136 mmol/L (136-145)
[2025-08-30 23:06] LABS: Troponin 5 6HR 16.38 ng/L (0-15); Troponin 5 6HR Delta 2.38 ng/L (0-12)
--- NOTE | 2025-08-30 23:12 | PC.NURSE ---
Patient arrived to ICU 7. Patient alert and oriented. Changed into gown. Oriented to room. Call light in reach. MAR shows Zosyn was running but patient did not have any medications running and had no patent IV access.
--- NOTE | 2025-08-30 23:13 | PC.NURSE ---
Addendum entered by THOMPSON Paulino 08/31/25 00:39: Provider on unit and gave verbal orders to discontinue Vancomycin order and place new order per previous order that was not administered in ED. Original Note: Patient had no patent IV access upon arrival. Notifying provider about delay in administration of medications.
[2025-08-30 23:48] LABS: MRSA PCR OZH (swab) NOT DETECTED (Negative)
[2025-08-31] VITALS (80 sets, daily range): BP systolic 136–181; BP diastolic 58–109; PULSE 81–102; RESP 7–31; TEMP 36.6–37.1; O2SAT 88–95
[2025-08-31] MEDS: vancomycin 1,750 MG/350 ML PIGGYBACK 175 MG IV (01:01)
--- NOTE | 2025-08-31 01:20 | PC.NURSE ---
Order for SCD for DVT prophylaxis per provider until after thoracentesis. Order placed. See MAR
--- NOTE | 2025-08-31 01:42 | ECG_ITS ---
[employer] Test Date: 2025-08-31 Pat Name: Buck Tee Department: Room: ICU07 Gender: Male Promotion Manager: : 1950 Requested By: Jake Salvador Order Number: [id number] Reading MD: EILEEN ORTIZ Measurements Intervals Mcgrann Rate: 98 P: 1 UT: 175 QRS: -47 QRSD: 101 T: 6 QT: 414 QTc: 530 Interpretive Statements SINUS RHYTHM WITH OCCASIONAL SUPRAVENTRICULAR PREMATURE COMPLEXES LEFT ANTERIOR FASCICULAR BLOCK [QRS AXIS <= -45, QR IN I, RS IN II] MODERATE VOLTAGE CRITERIA FOR LVH, CONSIDER NORMAL VARIANT [MEETS CRITERIA IN ONE OF: R(aVL), S(V1), R(V5), R(V5/V6)+S(V1)] POSSIBLE ANTEROSEPTAL MYOCARDIAL INFARCTION , OF INDETERMINATE AGE [30 ms Q WAVE IN V1-V4] MODERATE T-WAVE ABNORMALITY, CONSIDER LATERAL ISCHEMIA [-0.1+ mV T-WAVE IN I/aVL/V5/V6] Compared to ECG 08/30/2025 20:34:53 Left anterior fascicular block now present T-wave abnormality now present Possible ischemia now present Electronically Signed On 09-02-2025 16:11:16 TRANSMISSION SYSTEMS OPERATOR by EILEEN ORTIZ [email or web address]
[2025-08-31] MEDS: dextrose 5%-sod chloride 0.9% 1,000 ML 100 ML IV (01:52)
--- NOTE | 2025-08-31 02:16 | PC.NURSE ---
Patient refused echo when João made an attempt to complete it at approximately 0200.
[2025-08-31] MEDS: piperacillin-tazobactam 3.375 GM in sodium chloride 0.9% (plus) 50 ML IV ×3 (02:44→18:06)
[2025-08-31 03:03] LABS: Anion Gap 18.7 (5-19); Blood Urea Nitrogen 22 mg/dL (8-23); Calcium 8.7 mg/dL (8.5-10.5); Carbon Dioxide 20 mmol/L (22-29); Chloride 104 mmol/L (98-107); Creatinine Clr Calc Pharmacy 99.5958; Glucose 153 mg/dL (65-115); Osmolality Calculated 294 mOsm/kg (285-295); Potassium 3.7 mmol/L (3.5-5.1); Sodium 139 mmol/L (136-145)
[2025-08-31 05:41] LABS: Blood Urea Nitrogen 22 mg/dL (8-23); Calcium 7.8 mg/dL (8.5-10.5); Carbon Dioxide 16 mmol/L (22-29); Chloride 108 mmol/L (98-107); Creatinine Clr Calc Pharmacy 99.5958; Glucose 443 mg/dL (65-115); Osmolality Calculated 314 mOsm/kg (285-295); Sodium 141 mmol/L (136-145)
[2025-08-31 05:42] LABS: Troponin(5th) Baseline 15 ng/L (0-15)
[2025-08-31 05:50] LABS: Anion Gap 20.7 (5-19); Potassium 3.7 mmol/L (3.5-5.1)
--- NOTE | 2025-08-31 06:07 | PC.NURSE ---
Addendum entered by THOMPSON Paulino 08/31/25 06:18: New order for lab redraw for BMP placed. Original Note: 0500 labs do not appear to be accurate with POC glucose reading. D5 was paused during draw, but labs may need to be redrawn. Lab notified.
--- NOTE | 2025-08-31 06:44 | PC.NURSE ---
Patient complaining of pain and nausea. Provider notified and gave orders for PRN 0.4mg IVP Dilaudid q6h and PRN 4mg IVP Zofran q4h. Order placed. See MAR
[2025-08-31] MEDS: ondansetron 2 mg/ML SDV 2 mL 4 MG IVP (07:12)
[2025-08-31] MEDS: HYDROmorphone 0.5 MG/0.5 ML INJ 0.4 MG IVP (07:12)
[2025-08-31 07:33] LABS: Troponin 5 2HR 15.60 ng/L (0-15); Troponin 5 2HR Delta 0.60 ABS# (0-10)
[2025-08-31 07:47] LABS: Anion Gap 24.0 (5-19); Blood Urea Nitrogen 23 mg/dL (8-23); Calcium 8.9 mg/dL (8.5-10.5); Carbon Dioxide 15 mmol/L (22-29); Chloride 102 mmol/L (98-107); Creatinine Clr Calc Pharmacy 99.5958; Glucose 234 mg/dL (65-115); Osmolality Calculated 295 mOsm/kg (285-295); Potassium 4.0 mmol/L (3.5-5.1); Sodium 137 mmol/L (136-145)
--- NOTE | 2025-08-31 09:00 | PC.NURSE ---
Galindo cath noted to have dark red minimal output. Patient reports burning and fullness. Notified Dr Salvador. Irrigated galindo with sterile normal saline, tolerated well. Few small clots noted. Flowing freely, will cotinue to monitor.
[2025-08-31] MEDS: dextrose 5%-sod chloride 0.9% 1,000 ML 125 ML IV (11:16)
[2025-08-31 11:42] LABS: Troponin 5 6HR 15.15 ng/L (0-15); Troponin 5 6HR Delta 0.15 ng/L (0-12)
[2025-08-31 11:51] LABS: Anion Gap 19.6 (5-19); Blood Urea Nitrogen 23 mg/dL (8-23); Calcium 8.9 mg/dL (8.5-10.5); Carbon Dioxide 19 mmol/L (22-29); Chloride 103 mmol/L (98-107); Creatinine Clr Calc Pharmacy 99.5958; Glucose 265 mg/dL (65-115); Osmolality Calculated 299 mOsm/kg (285-295); Potassium 3.6 mmol/L (3.5-5.1); Sodium 138 mmol/L (136-145)
--- NOTE | 2025-08-31 14:30 | PC.NURSE ---
galindo irrigated using sterile technique. Small thread like clots noted. flowing w/o difficulty.
--- NOTE | 2025-08-31 14:35 | P.PN_ITS ---
Subjective 2 Subjective: No acute vents overnight. Today morning patient seen laying comfortably in bed. Continues to complain of right sided chest pain on taking a deep breath. Has remained hemodynamically stable. Blood pressure slightly elevated today. On 2 L of oxygen supplementation. Remains on insulin drip. Vitals/I&O/Wt Last Vital Signs Temp 97.8 F 08/31/25 12:00 Pulse 93 08/31/25 14:15 Resp 25 H 08/31/25 14:15 BP 166/90 08/31/25 14:15 Pulse Ox 92 08/31/25 14:15 O2 Del Method Nasal Cannula 08/31/25 14:00 O2 Flow Rate 2 08/31/25 14:00 08/30/25 08/31/25 08/31/25 22:59 06:59 14:59 Intake Total 2165.400 / 2165.400 673.468 / 2838.868 1270.975 / 1270.975 Output Total 600 / 600 425 / 425 Balance 2165.400 / 2165.400 73.468 / 2238.868 845.975 / 845.975 Weight last 48 hrs Weight 107.8 kg Weight 107.8 kg Weight 108.862 kg Physical Exam 2 Narrative: General: In mild distress because of right-sided chest pain, AO x 3 HEENT: PERRLA, pupils bilaterally equal and reactive Chest: Normal vesicular breath sounds, no added sounds, equal good air entry bilaterally except in right lower and middle zone CVS: S1-S2 regular, no murmurs, no tachycardia, no gallops, no rubs Abdomen: Soft, nontender, no organomegaly, bowel sounds present Neuro: No focal deficits, no facial deformity, AO x3, power 5/5 in all limbs Urinary Catheter Management: Galindo: Cath Placed During This Visit: yes Reason for Continuing Indwelling Catheter: Accurate Measurement of Urinary Output in Critically Ill Patients Urinary Catheter Date of Insertion: 08/30/25 Urinary Catheter Time of Insertion: 22:15 Data 08/31/25 16:02 08/31/25 16:02 Micro: Microbiology 08/30/25 20:44 Bacterial Antigens - Final Urine Kidney 08/30/25 16:02 Blood Culture - Preliminary Blood SPECIMEN COLLECTED 08/30/25 15:59 Blood Culture - Preliminary Blood SPECIMEN COLLECTED A&P Assessment and plan 1. Right lower lobe pneumonia: 2. Diabetic ketoacidosis without coma associated with type 2 diabetes mellitus: 3. Exudative pleural effusion: 4. High anion gap metabolic acidosis: 5. Hyperglycemia: 6. Gross hematuria: 7. Failure of outpatient treatment: 8. Type 2 diabetes mellitus with hyperglycemia, unspecified whether terminal supervisor insulin use: 9. Severe episode of recurrent major depressive disorder, without psychotic features: 10. Benign hypertension: 11. Loculated pleural effusion: Plan: 74-year-old gentleman history of type 2 diabetes mellitus being treated for pneumonia as an outpatient presents to the ER today because of worsening symptoms. Right lower lobe pneumonia: Failure to outpatient treatment. CTA done in the ER. Negative for PE. Concern for right-sided pleural effusion. Concern for loculated effusion. Cannot rule out empyema. Check sputum culture, urine Legionella, bacterial antigen. Negative MRSA swab. Dc IV vancomycin and C/w Zosyn. Aggressive pulmonary toilet with I-S and Acapella. Pulmicort twice daily, DuoNeb every 6 hour. Oxygen supplementation keeping saturation over 90%. Right-sided pleural effusion: Complicated effusion. Will plan for ultrasound- guided thoracentesis further evaluation to rule out empyema today. DKA: Will check BMP every 4 hours. Monitor potassium every 4 hours with target of around 4. Normal saline at 100 cc/h. Switch fluid to D5 NS if blood sugars below 250 and anion gap still open. Will keep NPO. Type 2 diabetes mellitus: Check A1c. Depression: Denies any suicidal or homicidal ideation. Agreeable to see behavioral health physician during hospitalization. Will consult for psychiatric evaluation. Can start on Lexapro for now. Continue other chronic home medications. Full code NPO Protonix OPD prophylaxis SCD for DVT prophylaxis.Awaiting thoracentesis Plan for the day: C/w insulin drip. Monitor BMP for potassium and anion gap q4h. Target potassium around 4. Replace accordingly. C/w D5ns at 125 cc/hr NPO Follow up with cultures. MRSA negative. DC vancomycin. C/w zosyn Plan for thoracentesis later today. Will monitor fluid studies. Goal BP less than 140/90 mmhg. BP elevated. Start on losartan 50 mg QD Overnight had galindo placed. Hematuria currently. Plan for flush galindo catheter as needed. Flomax 0.4 mg BID Will consult [facility] health for Depression. C/w lexapro for now. Start on Lido patch for pain. Change to IV dilaudid 0.2 q6h PDMP PDMP Reviewed: Not Reviewed Attestations 2 Medical Necessity Statement*: Requires further hospitalisation for management of high anion gap metabolic acidosis with concern for DKA, right lower lobe pneumonia with failure to outpatient treatment, pleural effusion with concern for empyema, hematuria Critical Care Time: The high probability of a clinically significant, sudden or life threatening deterioration of the patient's [pulmonary, endocrine, renal, ID] system(s) required my full and direct attention, intervention and personal management. The critical care time is as shown. This time is in addition to time spent performing any reported procedures but includes the following: [x] Data and vital sign review and interpretation [x] Patient assessment, examination and intervention [x] Documentation [x] Medication orders and management Critical Care Time (min): 75 Coding Level of Care Code Critical Care >/= 30 minutes Critical care time (in minutes): 75 The high probability of a clinically significant, sudden or life threatening deterioration, as referenced in this documentation, required my full and direct attention, intervention and personal management. The critical care time shown is in addition to time spent performing any reported separately billable procedures and includes the following: [x] Data and vital sign review and interpretation [x ] Patient assessment, examination and intervention [x] Medication orders and management [x] Patient/Family updates as able [x] Care Coordination and Documentation. Diagnoses Right lower lobe pneumonia J18.9 Pneumonia type: due to unspecified organism Diabetic ketoacidosis without coma associated with type 2 diabetes mellitus E11.10 Diabetes mellitus complication detail: without coma Diabetes mellitus type: type 2 Exudative pleural effusion J90 High anion gap metabolic acidosis E87.29 Hyperglycemia R73.9 Gross hematuria R31.0 Hematuria type: gross Failure of outpatient treatment Z78.9 Type 2 diabetes mellitus with hyperglycemia, unspecified whether terminal supervisor insulin use E11.65 Diabetes mellitus terminal supervisor insulin use: unspecified terminal supervisor insulin use status Diabetes mellitus complication status: with hyperglycemia Severe episode of recurrent major depressive disorder, without psychotic features F33.2 Active/Remission status: currently active Major depression episode severity: severe Psychotic features: without psychotic features Benign hypertension I10 Loculated pleural effusion J90
--- NOTE | 2025-08-31 14:55 | XRR_ITS ---
PROCEDURE INFORMATION: Exam: XR Chest Exam date and time: 08/31/2025 4:02 PM Age: 74 years old Clinical indication: Abnormal findings; Other: Post thora; Additional info: S/P right thoracentesis TECHNIQUE: Imaging protocol: Radiologic exam of the chest. Views: 1 view. COMPARISON: 1. CT angio chest PE protcl [id number] 08/30/2025 6:03 PM 2. CR XR chest 1V portable [id number] 08/30/2025 3:50 PM FINDINGS: Lungs: Persistent interstitial thickening medially at the left lung base, favoring atelectasis. Right lower lung consolidation may underlie right pleural effusion. Pleural spaces: Interval enlargement of moderate to large right subpulmonic pleural effusion. The left pleural space is clear. No pneumothorax. Heart/Mediastinum: Unremarkable. No cardiomegaly. Bones/joints: Unremarkable. XR/XR chest 1V portable [id number] IMPRESSION: 1. Interval enlargement of moderate to large right subpulmonic pleural effusion. 2. Right lower lung consolidation may underlie right pleural effusion.
[2025-08-31] MEDS: HYDROmorphone 0.5 MG/0.5 ML INJ 0.2 MG IVP ×2 (14:57→21:13)
--- NOTE | 2025-08-31 15:41 | US_ITS ---
WS: [id number] ULTRASOUND-GUIDED THORACENTESIS, RIGHT HISTORY: Diagnostic thoracentesis. Procedure, risks, and complications were explained to the patient. With the patient in an upright position, the skin over the RIGHT posterior thorax was cleansed with ChloraPrep and anesthetized with 1% buffered lidocaine. A 5 Samoan Yueh needle is inserted into the pleural fluid without complication. Approximately 300 cc of amy pleural fluid is removed without difficulty. / thoracentesis [id number] IMPRESSION: 1. RIGHT thoracentesis yielding 300 cc of fluid. 2. Chest radiograph to follow to evaluate for pneumothorax.
[2025-08-31 15:46] LABS: Body Fluid Polynuclear #Cells 7.027; Monocytes # Body Fluid 1.019; Mononuclear WBC Body Fluid % 12.700 %; Polynuclear WBC Body Fluid % 87.300 %
[2025-08-31 15:49] LABS: Apprearance, Body Fluid CLOUDY; Color, Body Fluid PALE YELLOW
[2025-08-31 15:50] LABS: Cyto Order Verification Order Verified; Fluid Laterality RIGHT PLEURAL; PATH Referral YES
[2025-08-31] MEDS: INSULIN REGULAR IN 0.9 % NACL 100 UNIT/100 ML BAG IV (16:07)
[2025-08-31 16:24] LABS: Hematocrit 44.3 % (37-53); Hemoglobin 14.20 g/dL (11.27-16.99); Mean Corpuscular HGB Conc 32.1 g/dL (30-55); Mean Corpuscular Hemoglobin 28.3 pg (27-33); Mean Corpuscular Volume 88.4 fl (82-101); Nucleated Red Blood Cells % 0 %; Platelet Count 366 10^3/cmm (157-399); Red Blood Count 5.01 10^6/uL (3.85-5.65); White Blood Count 12.62 10^3/uL (3.29-11.43)
[2025-08-31 16:38] LABS: Procalcitonin 0.14 ng/mL (0-0.5); Thyroid Stimulating Hormone 1.27 uIU/mL (0.27-4.20)
[2025-08-31 16:49] LABS: Anion Gap 18.2 (5-19); Blood Urea Nitrogen 22 mg/dL (8-23); Calcium 8.5 mg/dL (8.5-10.5); Carbon Dioxide 20 mmol/L (22-29); Chloride 102 mmol/L (98-107); Creatinine Clr Calc Pharmacy 99.5958; Glucose 171 mg/dL (65-115); Iron 19 ug/dL (59-158); Osmolality Calculated 291 mOsm/kg (285-295); Potassium 3.2 mmol/L (3.5-5.1); Sodium 137 mmol/L (136-145); Total Iron Binding Capacity 126 mcg/dl; Unsaturated Iron Binding 107 ug/dL (112-347)
[2025-08-31 16:55] LABS: Fluid Alkaline Phos. 98 IU/L
[2025-08-31] MEDS: lidocaine 1% 5 ML in potassium chloride premix 100 ML 25 ML IV (17:19)
[2025-08-31] MEDS: dextrose 5%-ns + KCl 20 20 MEQ/1,000 ML BAG 125 MEQ IV (17:23)
--- NOTE | 2025-08-31 17:38 | PC.NURSE ---
galindo irrigated using sterile technique. Small thread like clots noted. flowing w/o difficulty.
--- NOTE | 2025-08-31 18:29 | USCV_ITS ---
Tee [place] Age: 74 Gender: M : 1950 Exam Date: 08/30/2025 21:35 Ordering Phys: Jake Salvador MD Technologist: SUE [place] [facility] [place]: chest pain BP: 147 / 68 HR: 85 Rhythm: Sinus Technical Quality: Adequate MEASUREMENTS (Male / Female) Normal Values 2D ECHO LV Diastolic Diameter PLAX 4.1 cm 4.2 - 5.9 / 3.9 - 5.3 cm IVS Diastolic Thickness 1.8 cm 0.6 - 1.0 / 0.6 - 0.9 cm IVS Systolic Thickness 1.9 cm LVPW Diastolic Thickness 1.4 cm 0.6 - 1.0 / 0.6 - 0.9 cm LVPW Systolic Thickness 2.2 cm LV Ejection Fraction 2D Teich 62.4 % LV Ejection Fraction MOD 4C 60.4 % LV Ejection Fraction MOD 2C 67.4 % LV Ejection Fraction 2C AL 68.1 % RA Systolic Volume 4C AL 55.1 ml RA Systolic Volume 4C MOD 55.9 ml M-MODE LA Ao Ratio MM 1.4 AV Cusp Separation MM 2.9 cm DOPPLER LVOT Peak Velocity 90.0 cm/s MV Peak Velocity 140.0 cm/s MV Area PHT 4.4 cm squared Mitral E to A Ratio 0.7 TR Peak Velocity 157.0 cm/s TR Peak Gradient 9.9 mmHg TV Peak E Velocity 90.0 cm/s PV Peak Velocity 127.0 cm/s FINDINGS Left Ventricle Normal left ventricular size and systolic function, EF 60%..mild left ventricular hypertrophy. No regional wall motion abnormalities. Grade I/IV diastolic dysfunction (abnormal relaxation filling pattern), normal to mildly elevated filling pressures. Right Ventricle Normal right ventricular size and systolic function. Right Atrium Normal right atrial size. Left Atrium Normal left atrial size. IA Septum Normal appearance of the interatrial septum. Mitral Valve No gross abnormalities noted Aortic Valve Mild aortic valve regurgitation. Tricuspid Valve No gross abnormalities noted Pulmonic Valve Pulmonic valve not well visualized. Pericardium No pericardial effusion. Aorta Mildly dilated aortic root, measuring 4.5 cm, the level of the sinuses IVC Inferior vena cava not visualized. CONCLUSIONS Normal left ventricular size and systolic function, EF 60%..mild left ventricular hypertrophy. No regional wall motion abnormalities. Grade I/IV diastolic dysfunction (abnormal relaxation filling pattern), normal to mildly elevated filling pressures. Mildly dilated aortic root, measuring 4.5 cm, the level of the sinuses. Mild aortic valve regurgitation. There is no pericardial effusion. There are no intracardiac masses. No similar previous studies are available for comparison Dr Edson Galvan MD FAC (Electronically Signed) Final Date: 31 August 2025 09:43 S
--- NOTE | 2025-08-31 19:08 | US_ITS ---
WS: [id number] Ultrasound chest, limited. Evaluate for pleural effusions. COMPARISON: CT 08/30/2025. Small bilateral pleural effusions are identified. These effusions are very small and there is pleural thickening displacing the effusions. Loculated components were identified on the CT. Some of these loculations were along the fissures making them inaccessible. US/US chest [id number] IMPRESSION: 1. Small bilateral pleural effusions. Insufficient fluid for safe thoracentesis . 2. Right-sided pleural thickening displacing the effusion.
--- NOTE | 2025-08-31 20:00 | PC.NURSE ---
Pain/Potassium Patient complaining of severe right chest pain; next dilaudid dose due at 2100. Dr. Chavez on unit; orders received for 15 mg toradol IVP once, 2 mg IVP morphine Q4H PRN for pain to use intermittently with dilaudid, as well as 40 meq KCL PO once. Potassium level, maintenance fluid with KCL, and K-rider dose administering relayed to Dr. Chavez; verification received to administer 40 meq PO KCL.
[2025-08-31] MEDS: potassium chloride oral liq 20 mEq/15 mL UDC 40 MEQ PO (20:16)
[2025-08-31 21:27] LABS: Estmated Average Glucose 295; Hemoglobin A1C 11.9 % (4.0-6.0)
[2025-08-31 22:03] LABS: Magnesium 1.9 mg/dL (1.7-2.3)
[2025-08-31 22:05] LABS: Anion Gap 18.6 (5-19); Blood Urea Nitrogen 22 mg/dL (8-23); Calcium 8.4 mg/dL (8.5-10.5); Carbon Dioxide 20 mmol/L (22-29); Chloride 104 mmol/L (98-107); Creatinine Clr Calc Pharmacy 99.5958; Glucose 297 mg/dL (65-115); Osmolality Calculated 300 mOsm/kg (285-295); Potassium 4.6 mmol/L (3.5-5.1); Sodium 138 mmol/L (136-145)
[2025-09-01] VITALS (30 sets, daily range): BP systolic 127–194; BP diastolic 70–111; PULSE 77–108; RESP 15–28; TEMP 36.4–37.6; O2SAT 90–98
[2025-09-01] MEDS: morphine 4 mg/mL SDV 1 mL 2 MG IVP ×2 (00:32→07:32)
[2025-09-01] MEDS: dextrose 5%-ns + KCl 20 20 MEQ/1,000 ML BAG 125 MEQ IV (01:39)
[2025-09-01 02:11] LABS: Anion Gap 16.2 (5-19); Blood Urea Nitrogen 22 mg/dL (8-23); Calcium 8.6 mg/dL (8.5-10.5); Carbon Dioxide 20 mmol/L (22-29); Chloride 105 mmol/L (98-107); Creatinine Clr Calc Pharmacy 99.5958; Glucose 292 mg/dL (65-115); Osmolality Calculated 298 mOsm/kg (285-295); Potassium 4.2 mmol/L (3.5-5.1); Sodium 137 mmol/L (136-145)
[2025-09-01] MEDS: piperacillin-tazobactam 3.375 GM in sodium chloride 0.9% (plus) 50 ML IV ×2 (03:17→12:06)
[2025-09-01] MEDS: HYDROmorphone 0.5 MG/0.5 ML INJ 0.2 MG IVP ×2 (04:33→12:14)
[2025-09-01 05:30] LABS: Hematocrit 40.7 % (37-53); Hemoglobin 14.00 g/dL (11.27-16.99); Mean Corpuscular HGB Conc 34.4 g/dL (30-55); Mean Corpuscular Hemoglobin 29.0 pg (27-33); Mean Corpuscular Volume 84.3 fl (82-101); Nucleated Red Blood Cells % 0 %; Platelet Count 368 10^3/cmm (157-399); Red Blood Count 4.83 10^6/uL (3.85-5.65); White Blood Count 10.49 10^3/uL (3.29-11.43)
[2025-09-01 06:32] LABS: Alanine Aminotransferase 23 U/L (0-41); Albumin Level 2.8 g/dL (3.5-5.2); Alkaline Phosphatase 125 U/L (40-130); Anion Gap 15.8 (5-19); Aspartate Amino Transferase 19 U/L (0-40); Blood Urea Nitrogen 20 mg/dL (8-23); Calcium 8.5 mg/dL (8.5-10.5); Carbon Dioxide 19 mmol/L (22-29); Chloride 107 mmol/L (98-107); Cholesterol 134 mg/dL (0-200); Creatinine Clr Calc Pharmacy 99.5958; Globulin 2.8 g/dL (1.3-4.6); Glucose 231 mg/dL (65-115); HDL Cholesterol 35 mg/dL (60-100); Magnesium 2.0 mg/dL (1.7-2.3); Osmolality Calculated 296 mOsm/kg (285-295); Potassium 3.8 mmol/L (3.5-5.1); Sodium 138 mmol/L (136-145); Total Protein 5.6 g/dL (6.6-8.7); Triglycerides 131 mg/dL (0-150); VLDL Cholestrol Calculation 26 mg/dL (0-30)
[2025-09-01] MEDS: ondansetron 2 mg/ML SDV 2 mL 4 MG IVP (07:32)
--- NOTE | 2025-09-01 08:18 | PM.CONSULT ---
Providers/Reason For Consult Consulting Physician/Specialty*: Dr. Austin Reason for Consult*: Loculated right-sided pleural effusion Attending Physician: Jake Salvador MD History of Present Illness History of Present Illness Buck Tee is a 74 year old male With past medical history of diabetes type 2, liver cirrhosis, hepatitis C, depression comes to the ER on 08/30/2025 with symptoms of cough shortness of breath and right-sided chest pain. He was diagnosed with right sided pneumonia and started on antibiotic-vancomycin and Zosyn. Cultures pending. s. CT scan of the chest done showed loculated pleural effusion and was consulted for the management he was also diagnosed with DKA. And started on insulin drip per DKA protocol. Patient had a thoracentesis done today with 100 mL of fluid removed. He is on 2 L nasal cannula. Denies history of smoking cigarettes. Denies any exposures to sick contacts either. Medications/Allergies Home Medications ?Medication ?Instructions ?Recorded ?Confirmed ?Last Taken ?Type acetaminophen 500 mg tablet 1,000 mg PO Q6H PRN Pain 11/12/20 08/30/25 11/11/20 History (Tylenol Extra Strength) multivitamin 1 tab PO DAILY@10 11/12/20 08/30/25 08/30/25 History saw palmetto 500 mg capsule 1,000 mg PO BID 11/12/20 08/30/25 08/30/25 History vitamin B complex 1 tab PO DAILY 11/12/20 08/30/25 08/30/25 History amoxicillin 875 mg-potassium 1 tab PO BID 10 days #20 tabs 08/29/25 08/30/25 08/30/25 Rx clavulanate 125 mg tablet doxycycline hyclate 100 mg tablet 100 mg PO BID 10 days #20 tabs 08/29/25 08/30/25 08/30/25 Rx Allergies Allergy/AdvReac Type Severity Reaction Status Date / Time No Known Allergies Allergy Verified 08/28/25 21:59 Current Medications Generic Name Dose Route Start Last Admin Trade Name Freq PRN Reason Stop Dose Admin Albuterol/Ipratropium 3 ml 08/31/25 02:00 09/01/25 01:56 Ipratropium-Albuterol 3 Ml Neb INHALATION 3 ml Q6H.RESP ANNE Administration Budesonide 0.5 mg 08/31/25 08:00 08/31/25 19:46 Budesonide 0.5 Mg/2 Ml Neb INHALATION 0.5 mg BID.RESPIRATORY ANNE Administration Hydromorphone HCl 0.2 mg 08/31/25 08:29 09/01/25 04:33 Hydromorphone 0.5 Mg/0.5 Ml Inj IVP 0.2 mg Q6H PRN Administration SEVERE PAIN Piperacillin Sod/Tazobactam 50 mls @ 12.5 mls/hr 08/30/25 19:00 09/01/25 03:17 Sod 3.375 gm/ Sodium Chloride IV 12.5 mls/hr Q8H ANNE Administration Sodium Chloride 1,000 mls @ 75 mls/hr 08/30/25 21:22 09/01/25 03:10 Sodium Chloride 0.9% IV Not Given .[id number] ANNE Lidocaine 1 patch 08/31/25 09:08 09/01/25 04:29 Lidocaine 5% Patch TOPICAL 1 patch [id number] ANNE Administration Losartan Potassium 50 mg 08/31/25 09:02 09/01/25 04:33 Losartan 50 Mg Tablet PO 50 mg DAILY ANNE Administration Morphine Sulfate 2 mg 08/31/25 20:01 09/01/25 07:32 Morphine 4 Mg/Ml Sdv 1 Ml IVP 2 mg Q4H PRN Administration PAIN Ondansetron HCl 4 mg 08/31/25 06:43 09/01/25 07:32 Ondansetron 2 Mg/Ml Sdv 2 Ml IVP 4 mg Q6H PRN Administration NAUSEA AND VOMITING Tamsulosin HCl 0.4 mg 08/31/25 17:00 09/01/25 04:33 Tamsulosin 0.4 Mg Capsule PO 0.4 mg BID ANNE Administration PFSH Acute PFSH: Medical History (Updated 09/01/25 @ 20:30 by Alba Le MD) Empyema lung Type 2 diabetes mellitus with hyperglycemia, unspecified whether long distance operator insulin use Liver cirrhosis Hepatitis B Meningoencephalitis Altered mental status Delirium due to general medical condition Chronic lumbar radiculopathy Chronic low back pain Opioid contract exists Encounter for long-term use of opiate analgesic Controlled diabetes mellitus with hyperglycemia, without long-term current use of insulin Hypertriglyceridemia Benign hypertension Vitamin D insufficiency Anxiety and depression DDD (degenerative disc disease), lumbar Surgical History History of squamous cell carcinoma excision Left hand 07/2019 History of appendectomy History of colonoscopy 2016 Family History Mother Cancer Dementia Father Heart disease Social History Smoking and tobacco/nicotine status: former use of tobacco/nicotine Second hand smoke exposure: No Alcohol intake: current Alcohol intake frequency: 0-2 Drinks per Day Alcohol type: beer Substance/Drug Use: never Caregiver/support person: No Lives independently: Yes Marital status: Current gender identity: Male Vitals/I&O/Wt Last Vital Signs Temp 97.7 F 09/01/25 04:30 Pulse 87 09/01/25 06:22 Resp 20 H 09/01/25 07:32 BP 144/81 09/01/25 06:00 Pulse Ox 93 09/01/25 06:00 O2 Del Method Nasal Cannula 09/01/25 04:30 O2 Flow Rate 2 09/01/25 04:30 08/31/25 09/01/25 09/01/25 22:59 06:59 14:59 Intake Total 1575.350 / 2846.325 1049.733 / 3896.058 Output Total 725 / 1150 560 / 1710 Balance 850.350 / 1696.325 489.733 / 2186.058 Weight last 48 hrs Weight 248 lb 0.321 oz Weight 237 lb 10.533 oz Weight 237 lb 10.533 oz Weight 240 lb Physical Exam Narrative: Per RN General: alert, NAD obese HEENT: EOMI Pulmonary: Right-sided lung sounds diminished more than left. Cardiovascular: rrr, nl s1s2, Abdomen: soft, nt, nd, no r/g, Extremities: no edema Neurologic: grossly intact Agree with above exam Urinary Catheter Management: Jenkins: Cath Placed During This Visit: yes Reason for Continuing Indwelling Catheter: Accurate Measurement of Urinary Output in Critically Ill Patients Urinary Catheter Date of Insertion: 08/30/25 Urinary Catheter Time of Insertion: 22:15 Data 09/01/25 05:00 09/01/25 05:45 Micro: Microbiology 08/30/25 20:44 Bacterial Antigens - Final Urine Kidney A&P Assessment and plan 1. Empyema lun. Loculated pleural effusion: 3. Pneumonia: Plan: # Right pleural effusion/empyema - I reviewed patient's chest CT showing right-sided complicated pleural effusion with septations noted. Thoracentesis ultrasound guided revealed 300 cc of fluid # Right multifocal pneumonia - I reviewed the CT scans images personally myself and interpreted. Done on 08/30/2025. Images show a loculated pleural effusion on the right lower lobe anteriorly there is a right middle lobe 3.6 x 3.4 measuring fluid attenuation which looks like a loculated fluid/abscess. - I agree with current course of antibiotics vancomycin and Zosyn. Blood cultures pending as well as thoracentesis cultures. # Loculated pleural effusion right-sided Considering patient's loculated effusion is complicated and there are pockets on the right anteriorly, he is high risk secondary to his diabetes status and would benefit from decortication surgery. Discussed case with Dr. Austin and recommended transfer to a higher level of care where there is thoracic surgery evaluation available. # Diabetes/acute DKA Continue insulin giovana Thank you the consult Medical decision making level-high high MDM includes number and complexity of problems actively addressed during encounter, amount and/or complexity of data reviewed/ordered [ previous or external records, resulted lab(s)/test(s), ordered lab(s)/test(s), independent historian, independent test interpretation and other healthcare professional discussion] and described risk of complication, morbidity or mortality of management as documented This documentation was created by [employer] group product manager software (known for inherent group product manager error). Every effort was made to assure accuracy of group product manager. Any obvious errors or omissions should be clarified with the author of the document Telemedicine Consent Patient seen today via Telemedicine by agreement and consent of patient.? Telemedicine technology used during the visit includes audio and, as available, review of images.? The patient encounter is appropriate and reasonable under the circumstances given the patient?s particular presentation at this time.? The patient has been advised of the potential risks and limitations of this mode of treatment (including but not limited to the absence of in-person examination) and has agreed to be treated in a remote fashion in spite of them.? Any, and all, of the patient?s/patient?s family?s questions on this issue have been answered and I have made no promises or guarantees to the patient. PDMP PDMP Reviewed: Not Reviewed Coding Level of Care Code 93085 Diagnoses Empyema lung J86.9 Loculated pleural effusion J90 Pneumonia J18.9
[2025-09-01] MEDS: insulin glargine 100 units/1 mL 20 UNIT SUBCUT (08:43)
--- NOTE | 2025-09-01 10:59 | PC.SOCIAL ---
IMM Updated Updated pt on IMM. No questions voiced. Provided pt a copy. Initialed, dated, & timed a copy & placed in chart.
--- NOTE | 2025-09-01 13:11 | P.TS_ITS ---
Transfer Summary Providers Date of Admission: 08/30/25 18:15 Date of Discharge/Transfer: 09/01/25 Attending Provider at Admission: Ioana Grady MD Attending Provider at Transfer: Jake Salvador MD Consults: Pulmonary: Dr. Le Neuropsych Unit: Dr. Fletcher Transfer Plans: Anticipated date of transfer: 09/01/25 . Receiving Facility: [facility] . Receiving Provider: Dr. Anders . Diagnoses at Discharge Discharge Diagnosis 1. Right lower lobe pneumonia: 2. Diabetic ketoacidosis without coma associated with type 2 diabetes mellitus: 3. Exudative pleural effusion: 4. High anion gap metabolic acidosis: 5. Hyperglycemia: 6. Gross hematuria: 7. Failure of outpatient treatment: 8. Type 2 diabetes mellitus with hyperglycemia, unspecified whether prison insulin use: 9. Severe episode of recurrent major depressive disorder, without psychotic features: 10. Benign hypertension: 11. Loculated pleural effusion: Reason for Visit Reason for Visit SOB, R side Chest pain Brief History: Buck Tee is a 74 year old male with past medical history of type 2 diabetes mellitus, liver cirrhosis/hepatitis C, depression, not on any medication because of depression presents to the ER today because of right-sided chest pain which has been getting worse along with difficulty in breathing on minimal exertion. Patient states he was in the ER few days ago and was diagnosed of right sided pneumonia because of chest pain. He was started on antibiotics. As the pain was getting worse so he presented the ER today. He states he does know that he has diabetes and depression but is too tired to take his medication, follow-up with primary care provider and feels hopeless and has given up/stop taking his medications. He denies any active suicidal or homicidal ideation. Hospital Course Hospital Course Patient was admitted to the ICU further evaluation and management of diabetic ketoacidosis. He was started on insulin drip. A1c found to be 11.9. He responded well to the treatment and his DKA resolved. He was transition to Lantus and sliding scale moderate dose protocol insulin. Given concern for complex pleural effusion with concerns for exudative fluid he underwent thoracentesis on 08/31 and 300 cc of cloudy fluid was aspirated from right lung. Fluid studies were consistent with exudative with pH of 6.5 and a fluid white count of more than 8000. He was continued on IV antibiotics during hospitalization with which his leukocytosis resolved. He was started on antidepressant with Lexapro. Neuropsych Unit has been consulted for advanced depression without suicidal or homicidal ideation. During hospitalization he was found to have elevated blood pressures for which losartan 50 mg oral daily has been added. Given concerns for possible empyema pulmonary team was consulted who recommended patient to be transferred to a tertiary center where he can undergo decortication with cardiothoracic surgery. Care were discussed in detail with hospitalist team at [facility] who has accepted the patient. He is been discharged hemodynamically stable condition. Today patient's DKA is resolved. He was started on a diet. Insulin drip was stopped. Lantus 20 units every morning along with moderate insulin insulin sliding scale has been started. Echocardiogram was done which showed a normal EF. He has been hemodynamically stable and afebrile. Blood pressures have been improving on losartan 50 mg oral daily. IV Dilaudid has been discontinued and Girdler 5 mg every 6 hours as needed and tramadol 50 mg every 6 hours as needed have been started. Patient has been encouraged to be out of bed and psychiatry has been consulted. He is to continue with aggressive pulmonary toilet. Patient is agreeable to transfer to telemetry center. Physical Exam Narrative: General: In mild distress because of right-sided chest pain, AO x 3 HEENT: PERRLA, pupils bilaterally equal and reactive Chest: Normal vesicular breath sounds, no added sounds, equal good air entry bilaterally except in right lower and middle zone CVS: S1-S2 regular, no murmurs, no tachycardia, no gallops, no rubs Abdomen: Soft, nontender, no organomegaly, bowel sounds present Neuro: No focal deficits, no facial deformity, AO x3, power 5/5 in all limbs Urinary Catheter Management: Jenkins: Cath Placed During This Visit: yes Reason for Continuing Indwelling Catheter: Accurate Measurement of Urinary Output in Critically Ill Patients Urinary Catheter Date of Insertion: 08/30/25 Urinary Catheter Time of Insertion: 22:15 TS Data Studies Completed and Pending Pending at discharge Category Date Time Status Amylase, Pleural Fluid Routine Lab 08/31/25 15:00 Received Anaerobic Culture Routine Lab 08/31/25 15:00 Results Blood Culture Stat Lab 08/30/25 16:02 Results Body Fluid Culture & GS Routine Lab 08/31/25 15:00 Results Complete Blood Count w/Auto AM LABS Lab 09/02/25 04:00 Ordered Comprehensive Metabolic Panel AM LABS Lab 09/02/25 04:00 Ordered Fungal Culture not HR/SK/BL Routine Lab 08/31/25 15:00 Received MAG [Magnesium] AM LABS Lab 09/02/25 04:00 Ordered MAG [Magnesium] AM LABS Lab 09/03/25 04:00 Ordered Mycobacteria, Culture w/Fluor Routine Lab 08/31/25 15:00 Received Sputum Culture and Gram Stain Stat Lab 08/30/25 19:11 Uncollected Cytology [PTH] Routine Pth 08/31/25 15:00 Received Completed Studies During Hospitalization Category Date Time Status CT angio chest PE protcl [id number] Stat Cat Scan 08/30/25 17:01 Completed XR chest 1V portable [id number] Stat Exams 08/30/25 15:46 Completed XR chest 1V portable [id number] Stat Exams 08/31/25 14:55 Completed CV. echo complete* [id number] Routine Ultrasound 08/31/25 18:29 Com[place] chest [id number] Routine Ultrasound 08/31/25 19:08 Completed US thoracentesis [id number] Routine Ultrasound 08/31/25 15:41 Completed Laboratory Last Values WBC 10.49 10^3/uL (3.29-11.43) 09/01/25 05:00 RBC 4.83 10^6/uL (3.85-5.65) 09/01/25 05:00 Hgb 14.00 g/dL (11.27-16.99) 09/01/25 05:00 Hct 40.7 % (37-53) 09/01/25 05:00 MCV 84.3 fl (82-101) 09/01/25 05:00 MCH 29.0 pg (27-33) 09/01/25 05:00 MCHC 34.4 g/dL (30-55) D 09/01/25 05:00 RDW 13.4 % (12.1-15.1) 09/01/25 05:00 Plt Count 368 10^3/cmm (157-399) 09/01/25 05:00 MPV 9.7 fL (7.4-10.4) 09/01/25 05:00 Neut % (Auto) 82.0 % 09/01/25 05:00 Lymph % (Auto) 6.4 % 09/01/25 05:00 [place] % (Auto) 9.6 % 09/01/25 05:00 Eos % (Auto) 0.0 % 09/01/25 05:00 Baso % (Auto) 0.3 % 09/01/25 05:00 Neut # (Auto) 8.60 10^3/uL (1.8-7.7) H 09/01/25 05:00 Lymph # (Auto) 0.7 10^3/uL (0.8-4.8) L 09/01/25 05:00 [place] # (Auto) 1.0 10^3/uL (0.2-0.9) H 09/01/25 05:00 Eos # (Auto) 0.0 10^3/uL (0.0-0.8) 09/01/25 05:00 Baso # (Auto) 0.0 10^3/uL (0.0-0.1) 09/01/25 05:00 Nucleated RBC % (auto) 0 % 09/01/25 05:00 Nucleated RBCs # 0.0 /100WBC 09/01/25 05:00 Differential Comment Yes 08/31/25 15:00 Specimen Type Arterial 08/30/25 15:51 Sample Site Radial, right 08/30/25 15:51 ABG pH 7.36 (7.35-7.45) 08/30/25 15:51 ABG pCO2 31.2 mmHg (35-45) L 08/30/25 15:51 ABG pO2 57.3 mmHg (80.0-100.0) L 08/30/25 15:51 ABG PO2/FiO2 Ratio 272 08/30/25 15:51 ABG HCO3 17.4 mmol/L (22-26) L 08/30/25 15:51 ABG O2 Saturation 91.1 08/30/25 15:51 ABG Base Excess -6.7 mmol/L (-2.0-2.0) L 08/30/25 15:51 Jatinder Test Pos 08/30/25 15:51 A-a O2 Gradient 7.0 mmHg (5-10) 08/30/25 15:51 Hematocrit 52.9 % (42-52) H 08/30/25 15:51 Hgb O2 Saturation 89.1 % (95-100) L 08/30/25 15:51 Carboxyhemoglobin 1.3 %THgb (0.4-20.1) 08/30/25 15:51 Methemoglobin 1.0 % (0.4-1.5) 08/30/25 15:51 Total Hemoglobin 17.3 g/dL (14-18) 08/30/25 15:51 Sodium 136.0 mmol/L (131-143) 08/30/25 15:51 Potassium 4.5 mmol/L (3.5-5.0) 08/30/25 15:51 Glucose 413.0 mg/dL (70-115) H 08/30/25 15:51 Ionized Calcium 1.2 mmol/L (1.1-1.4) 08/30/25 15:51 O2 Delivery Device Room air 08/30/25 15:51 FiO2 21.0 % 08/30/25 15:51 Cloth Finishing Range Operator Chief ID [place] 08/30/25 15:51 Sodium 138 mmol/L (136-145) 09/01/25 05:45 Potassium 3.8 mmol/L (3.5-5.1) 09/01/25 05:45 Chloride 107 mmol/L (98-107) 09/01/25 05:45 Carbon Dioxide 19 mmol/L (22-29) L 09/01/25 05:45 Anion Gap 15.8 (5-19) 09/01/25 05:45 BUN 20 mg/dL (8-23) 09/01/25 05:45 Creatinine 0.6 mg/dL (0.7-1.2) L 09/01/25 05:45 GFR Calculation Not Reportable 09/01/25 05:45 Glucose 231 mg/dL (65-115) H 09/01/25 05:45 POC Glucose 266 mg/dL (70-110) H 09/01/25 12:08 Estimat Average Glucose 295 08/31/25 16:02 Hemoglobin A1c 11.9 % (4.0-6.0) H 08/31/25 16:02 Calculated Osmolality 296 mOsm/kg (285-295) H 09/01/25 05:45 Lactic Acid 2.8 mmol/L (0.5-2.2) H 08/30/25 15:59 Lactic Acid (Sepsis) 2.8 mmol/L (0.5-2.2) H 08/30/25 18:36 Calcium 8.5 mg/dL (8.5-10.5) 09/01/25 05:45 Phosphorus 1.6 mg/dL (2.5-4.5) L 09/01/25 05:45 Magnesium 2.0 mg/dL (1.7-2.3) 09/01/25 05:45 Iron 19 ug/dL (59-158) L 08/31/25 16:02 TIBC 126 mcg/dl 08/31/25 16:02 % Saturation 15.0 % (20-50) L 08/31/25 16:02 Unsat Iron Binding 107 ug/dL (112-347) L 08/31/25 16:02 Total Bilirubin 0.6 mg/dL (0.15-1.2) 09/01/25 05:45 AST 19 U/L (0-40) 09/01/25 05:45 ALT 23 U/L (0-41) 09/01/25 05:45 Alkaline Phosphatase 125 U/L (40-130) 09/01/25 05:45 Lactate Dehydrogenase 121 U/L (135-225) L 08/31/25 16:02 Troponin T Baseline 15 ng/L (0-15) 08/31/25 05:05 Troponin T 120 Minute 15.60 ng/L (0-15) H 08/31/25 07:03 Delta Troponin T 0.60 ABS# (0-10) 08/31/25 07:03 Troponin T Hi Sens 6Hr 15.15 ng/L (0-15) H 08/31/25 11:13 Troponin T Hi Sens 6Hr Delta 0.15 ng/L (0-12) 08/31/25 11:13 C-Reactive Protein 451.5 mg/L (0.0-4.9) H 08/30/25 15:59 NT-Pro-B Natriuret Pep 661 pg/mL (0-125) H 08/30/25 15:59 Total Protein 5.6 g/dL (6.6-8.7) L 09/01/25 05:45 Albumin 2.8 g/dL (3.5-5.2) L 09/01/25 05:45 Globulin 2.8 g/dL (1.3-4.6) 09/01/25 05:45 Triglycerides 131 mg/dL (0-150) 09/01/25 05:45 Cholesterol 134 mg/dL (0-200) 09/01/25 05:45 LDL Cholesterol, Calc 73 mg/dL (50-129) 09/01/25 05:45 Total VLDL Cholesterol 26 mg/dL (0-30) 09/01/25 05:45 HDL Cholesterol 35 mg/dL (60-100) L 09/01/25 05:45 Cholesterol/HDL Ratio 3.83 mg/dL (1.0-5.00) 09/01/25 05:45 Vitamin B12 1924 pg/mL (232-1245) H 08/30/25 15:59 Folate 15.6 ng/mL (4.5-32.2) 08/31/25 02:29 Procalcitonin 0.14 ng/mL (0-0.5) 08/31/25 16:02 TSH 1.27 uIU/mL (0.27-4.20) 08/31/25 16:02 Urine Color Yellow (Yellow) 08/30/25 20:44 Urine Appearance Clear (CLEAR) 08/30/25 20:44 Urine pH 5.0 (5-7) 08/30/25 20:44 Ur Specific [place] 1.065 (1.005-1.030) H 08/30/25 20:44 Urine Protein 1+ (Negative) A 08/30/25 20:44 Urine Glucose (UA) 2+ (Normal) H 08/30/25 20:44 Urine Ketones 3+ (Negative) H 08/30/25 20:44 Urine Blood Negative (Negative) 08/30/25 20:44 Urine Nitrate Negative (Negative) 08/30/25 20:44 Urine Bilirubin Negative (Negative) 08/30/25 20:44 Urine Urobilinogen 0.2 mg/dL (Negative) 08/30/25 20:44 Ur Leukocyte Esterase Negative (Negative) 08/30/25 20:44 Urine RBC 0-2 /hpf (0-2) 08/30/25 20:44 Urine WBC 0-5 /hpf (0-5) 08/30/25 20:44 Ur Squamous Epith Cells 0-5 /hpf (0-5) 08/30/25 20:44 Amorphous Sediment Not Reportable 08/30/25 20:44 Urine Bacteria None seen /hpf (NONE) 08/30/25 20:44 Hyaline Casts 0.40 /lpf 08/30/25 20:44 Fluid Color Pale yellow 08/31/25 15:00 Fluid Appearance Cloudy 08/31/25 15:00 Fluid Specific Grav 1.026 08/31/25 15:00 Fluid pH 6.5 08/31/25 15:00 Fluid WBC 8046 /uL 08/31/25 15:00 Fluid RBC 3.000 10^3/uL 08/31/25 15:00 Fld Polynuclear WBCs # 7.027 08/31/25 15:00 Fld Polynuclear WBCs % 87.300 % 08/31/25 15:00 Fl Mononucl WBCs #(Auto) 1.019 08/31/25 15:00 Fl Mononuclear % Auto 12.700 % 08/31/25 15:00 Fld Crystal Laterality Right pleural 08/31/25 15:00 Fluid Glucose 213.0 mg/dL 08/31/25 15:00 Fluid Albumin 2.3 g/dL 08/31/25 15:00 Fluid LDH 714 U/L 08/31/25 15:00 Fluid Alk Phosphatase 98 IU/L 08/31/25 15:00 Fluid Cholesterol 94 mg/dL (0-200) 08/31/25 15:00 Fluid Triglycerides 86 mg/dL (0-150) 08/31/25 15:00 Fluid Uric Acid 6 mg/dL 08/31/25 15:00 Peritoneal Amylase Cancelled 08/31/25 15:00 Pleural Total Protein 3.5 g/dL 08/31/25 15:00 Nasal MRSA (PCR) Not detected (Negative) 08/30/25 22:25 Urine Opiates Screen Positive ng/mL (Negative) H 08/30/25 20:44 Ur Barbiturates Screen Negative ng/mL (Negative) 08/30/25 20:44 Ur Phencyclidine Scrn Negative ng/mL (Negative) 08/30/25 20:44 Ur Amphetamines Screen Negative ng/mL (Negative) 08/30/25 20:44 U Benzodiazepines Scrn Negative ng/mL (Negative) 08/30/25 20:44 Urine Cocaine Screen Negative ng/mL (Negative) 08/30/25 20:44 U Marijuana (THC) Screen Negative ng/mL (Negative) 08/30/25 20:44 Ethyl Alcohol < 10 mg/dL (0-10) 08/30/25 17:07 Serum Ketones Positive (Negative) H 08/30/25 18:36 Influenza A (PCR) Negative (Negative) 08/30/25 16:10 Influenza Type B (PCR) Negative (Negative) 08/30/25 16:10 RSV (PCR) Negative (Negative) 08/30/25 16:10 SARS-CoV-2 (PCR) Negative (Negative) 08/30/25 16:10 Radiology Impressions Chest CTA 08/30/25 17:01 IMPRESSION: 1. Loculated right pleural effusion with adjacent atelectasis. Pleural-based structure in the right middle lobe measuring up to 3.6 cm and measuring above simple fluid attenuation, possibly representing loculated exudative fluid. Mass is not excluded. 2. No pulmonary embolism. 3. Dilated ascending thoracic aorta up to 4.7 cm. Recommend clinical assessment and follow-up. Chest X-Ray 08/31/25 14:55 IMPRESSION: 1. Interval enlargement of moderate to large right subpulmonic pleural effusion. 2. Right lower lung consolidation may underlie right pleural effusion. Thoracentesis Ultrasound 08/31/25 15:41 IMPRESSION: 1. RIGHT thoracentesis yielding 300 cc of fluid. 2. Chest radiograph to follow to evaluate for pneumothorax. Chest Ultrasound 08/31/25 19:08 IMPRESSION: 1. Small bilateral pleural effusions. Insufficient fluid for safe thoracentesis. 2. Right-sided pleural thickening displacing the effusion. Microbiology 08/31/25 15:00 Pleural Fluid Gram Stain - Final 08/31/25 15:00 Pleural Fluid Body Fluid Culture - Preliminary 08/30/25 20:44 Urine Kidney Bacterial Antigens - Final 08/30/25 16:02 Blood Blood Culture - Preliminary SPECIMEN COLLECTED 08/30/25 15:59 Blood Blood Culture - Preliminary SPECIMEN COLLECTED Echocardiogram: Chart Viewer - [facility] ? Diagnostics DATE TYPE STATUS REF RANGE/AUTHOR 08/31/25 18:29 Edson Galvan 08/31/25 01:42 INTERFACE,USER 08/30/25 20:34 Edson Galvan 08/30/25 17:50 Edson Galvan 08/30/25 15:51 Edson Galvan 08/29/25 00:49 Edson Galvan 08/28/25 22:49 Kayla Galvanunju 08/28/25 21:58 Mariela Galvansouthdipikatarahkelsey 11/13/20 05:03 Radha Rosales [place] K Acute 74, M1950 MRN#? [id number] ADM IN,?MEDSURG??263?-1? 1.78m 112.5kg BSA: 2.29m? BMI: 35.6kg/m? ? ONSET Today 12:44 *from earlier documentation 08/31/25 Today 08/31/25 08/31/25 Today 08/31/25 08/30/25 08/30/25 08/31/25 11/16/20 Diagnostics Reports Buck Tee?(c)??74??M??1950 ? Allergy/Adv: [place] [address] Ultrasound Report Signed Patient: Buck Tee Unit #: [id number] : 1950 Age/Sex: 74 / M ADM Date: 08/30/25 Loc: ICU Room/Bed: [place] [address]: Jake Salvador MD Ordering Provider/Ordering MD: Jake Salvador MD Date of Service: 08/31/25 Procedure(s): CV. echo complete* [id number] Accession Number(s): [id number] Report Number: [id number] Buck Tee Age: 74 Gender: M : 1950 Exam Date: 08/30/2025 21:35 Ordering Phys: Jake Salvador MD Technologist: Exam Location: [facility] [place] Indication: chest pain BP: 147 / 68 HR: 85 Rhythm: Sinus Technical Quality: Adequate MEASUREMENTS (Male / Female) Normal Values 2D ECHO LV Diastolic Diameter PLAX 4.1 cm 4.2 - 5.9 / 3.9 - 5.3 cm IVS Diastolic Thickness 1.8 cm 0.6 - 1.0 / 0.6 - 0.9 cm IVS Systolic Thickness 1.9 cm LVPW Diastolic Thickness 1.4 cm 0.6 - 1.0 / 0.6 - 0.9 cm LVPW Systolic Thickness 2.2 cm LV Ejection Fraction 2D Teich 62.4 % LV Ejection Fraction MOD 4C 60.4 % LV Ejection Fraction MOD 2C 67.4 % LV Ejection Fraction 2C AL 68.1 % RA Systolic Volume 4C AL 55.1 ml RA Systolic Volume 4C MOD 55.9 ml M-MODE LA Ao Ratio MM 1.4 AV Cusp Separation MM 2.9 cm DOPPLER LVOT Peak Velocity 90.0 cm/s MV Peak Velocity 140.0 cm/s MV Area PHT 4.4 cm squared Mitral E to A Ratio 0.7 TR Peak Velocity 157.0 cm/s TR Peak Gradient 9.9 mmHg TV Peak E Velocity 90.0 cm/s PV Peak Velocity 127.0 cm/s FINDINGS Left Ventricle Normal left ventricular size and systolic function, EF 60%..mild left ventricular hypertrophy. No regional wall motion abnormalities. Grade I/IV diastolic dysfunction (abnormal relaxation filling pattern), normal to mildly elevated filling pressures. Right Ventricle Normal right ventricular size and systolic function. Right Atrium Normal right atrial size. Left Atrium Normal left atrial size. IA Septum Normal appearance of the interatrial septum. Mitral Valve No gross abnormalities noted Aortic Valve Mild aortic valve regurgitation. Tricuspid Valve No gross abnormalities noted Pulmonic Valve Pulmonic valve not well visualized. Pericardium No pericardial effusion. Aorta Mildly dilated aortic root, measuring 4.5 cm, the level of the sinuses IVC Inferior vena cava not visualized. CONCLUSIONS Normal left ventricular size and systolic function, EF 60%..mild left ventricular hypertrophy. No regional wall motion abnormalities. Grade I/IV diastolic dysfunction (abnormal relaxation filling pattern), normal to mildly elevated filling pressures. Mildly dilated aortic root, measuring 4.5 cm, the level of the sinuses. Mild aortic valve regurgitation. There is no pericardial effusion. There are no intracardiac masses. No similar previous studies are available for comparison Dr Edson Galvan MD [facility] (Electronically Signed) Final Date: 31 August 2025 09:43 S Recent Clincial Data Last Vital Signs Temp 97.7 F 09/01/25 04:30 Pulse 84 09/01/25 12:44 Resp 16 09/01/25 12:44 BP 155/97 09/01/25 10:00 Pulse Ox 93 09/01/25 12:44 O2 Del Method Nasal Cannula 09/01/25 12:44 O2 Flow Rate 2 09/01/25 12:44 Vital Signs Temp Pulse Resp BP Pulse Ox O2 Del Method O2 Flow Rate 09/01/25 12:44 84 16 93 Nasal Cannula 2 09/01/25 10:00 108 H 20 H 155/97 90 09/01/25 09:30 99 19 H 130/78 09/01/25 09:00 93 22 H 130/78 09/01/25 08:30 83 20 H 127/70 91 09/01/25 08:00 86 22 H 144/81 93 09/01/25 08:00 84 16 94 Nasal Cannula 2 09/01/25 07:32 20 H 09/01/25 07:30 86 24 H 161/80 94 09/01/25 07:00 85 24 H 154/86 92 09/01/25 06:30 82 26 H 144/81 94 09/01/25 06:22 87 09/01/25 06:00 87 21 H 144/81 93 09/01/25 05:30 93 23 H 146/79 92 09/01/25 05:00 90 22 H 142/81 92 09/01/25 04:33 142/81 09/01/25 04:30 97.7 F 92 17 168/111 92 Nasal Cannula 2 09/01/25 04:00 91 22 H 168/111 93 09/01/25 03:30 92 25 H 140/86 92 09/01/25 03:00 93 23 H 166/85 91 09/01/25 02:30 93 22 H 166/85 93 09/01/25 02:13 92 23 H 136/80 95 Nasal Cannula 2 09/01/25 01:58 87 15 92 Nasal Cannula 1.5 09/01/25 01:30 87 21 H 153/88 92 Intake & Output/Weight 08/30/25 08/31/25 09/01/25 09/02/25 06:59 06:59 06:59 06:59 Intake Total 2838.868 / 2838.868 3896.058 / 3896.058 50 / 50 Output Total 600 / 600 1710 / 1710 Balance 2238.868 / 2238.868 2186.058 / 2186.058 50 / 50 Weight 107.8 kg 112.5 kg Vitals Last Vital Signs Temp 97.7 F 09/01/25 04:30 Pulse 84 09/01/25 12:44 Resp 16 09/01/25 12:44 BP 155/97 09/01/25 10:00 Pulse Ox 93 09/01/25 12:44 O2 Del Method Nasal Cannula 09/01/25 12:44 O2 Flow Rate 2 09/01/25 12:44 TS Medications Medications Albuterol/Ipratropium (Ipratropium-Albuterol 3 Ml Neb) 3 ml INHALATION Q6H.RESP [facility] Last Admin: 09/01/25 13:00 Dose: 3 ml Budesonide (Budesonide 0.5 Mg/2 Ml Neb) 0.5 mg INHALATION BID.RESPIRATORY [facility] Last Admin: 09/01/25 08:30 Dose: 0.5 mg Glucagon (Glucagon 1 Mg/Ml Kit 1 Ml) 1 mg IM ONCE PRN; Protocol PRN Reason: Adult Acute Hypoglycemia Nursing Prot. Hydromorphone HCl (Hydromorphone 0.5 Mg/0.5 Ml Inj) 0.2 mg IVP Q6H PRN PRN Reason: SEVERE PAIN Last Admin: 09/01/25 12:14 Dose: 0.2 mg Piperacillin Sod/Tazobactam (Sod 3.375 gm/ Sodium Chloride) 50 mls @ 12.5 mls/hr IV Q8H [facility] Last Admin: 09/01/25 12:06 Dose: 12.5 mls/hr Sodium Chloride (Sodium Chloride 0.9%) 1,000 mls @ 75 mls/hr IV .[id number] [facility] Last Admin: 09/01/25 03:10 Dose: Not Given Dextrose (D5w) 500 mls @ 0 mls/hr IV ONCE PRN; Protocol PRN Reason: Adult Acute Hypoglycemia Prot Dextrose (D10w) 125 mls @ 750 mls/hr IV PRN PRN; Protocol PRN Reason: Adult Acute Hypoglycemia Nursing Protocol Dextrose (D10w) 250 mls @ 1,000 mls/hr IV PRN PRN; Protocol PRN Reason: Adult Acute Hypoglycemia Nursing Protocol Insulin Glargine (Insulin Glargine 100 Units/1 Ml) 20 unit SUBCUT QAM [facility] Last Admin: 09/01/25 08:43 Dose: 20 unit Insulin Human Lispro (Insulin Lispro 100 Unit/1 Ml) 0 unit SUBCUT WM&BEDTIME [facility]; Protocol Last Admin: 09/01/25 12:15 Dose: 10 unit Lidocaine (Lidocaine 5% Patch) 1 patch TOPICAL [id number] [facility] Last Admin: 09/01/25 04:29 Dose: 1 patch Losartan Potassium (Losartan 50 Mg Tablet) 50 mg PO DAILY [facility] Last Admin: 09/01/25 04:33 Dose: 50 mg Metoprolol Tartrate (Metoprolol Tartrate 25 Mg Tablet) 25 mg PO BID@0900,2100 [facility] Last Admin: 09/01/25 12:14 Dose: 25 mg Morphine Sulfate (Morphine 4 Mg/Ml Sdv 1 Ml) 2 mg IVP Q4H PRN PRN Reason: PAIN Last Admin: 09/01/25 07:32 Dose: 2 mg Ondansetron HCl (Ondansetron 2 Mg/Ml Sdv 2 Ml) 4 mg IVP Q6H PRN PRN Reason: NAUSEA AND VOMITING Last Admin: 09/01/25 07:32 Dose: 4 mg Tamsulosin HCl (Tamsulosin 0.4 Mg Capsule) 0.4 mg PO BID [facility] Last Admin: 09/01/25 04:33 Dose: 0.4 mg Discontinued Medications Albuterol/Ipratropium (Ipratropium-Albuterol 3 Ml Neb) 3 ml INHALATION Q6H.RESP [facility] Last Admin: 08/31/25 00:23 Dose: 3 ml Albuterol/Ipratropium (Ipratropium-Albuterol 3 Ml Neb) 3 ml INHALATION Q6H.RESP [facility] Stop: 08/31/25 00:30 Last Admin: 08/31/25 00:36 Dose: Not Given Albuterol/Ipratropium (Ipratropium-Albuterol 3 Ml Neb) 7.5 ml INHALATION ONCE ONE Stop: 08/31/25 22:15 Budesonide (Budesonide 0.5 Mg/2 Ml Neb) 0.5 mg INHALATION BID [facility] Cefepime HCl (Cefepime 2,000 Mg Sdv) 2,000 mg IVP ONCE STA; Protocol Stop: 08/30/25 18:15 Last Admin: 08/30/25 18:30 Dose: 2,000 mg Glucagon (Glucagon 1 Mg/Ml Kit 1 Ml) 1 mg IM ONCE PRN; Protocol PRN Reason: DKA Hypoglycemia Nursing Protocol Hydromorphone HCl (Hydromorphone 0.5 Mg/0.5 Ml Inj) 0.4 mg IVP Q6H PRN PRN Reason: SEVERE PAIN Last Admin: 08/31/25 07:12 Dose: 0.4 mg Levofloxacin/Dextrose (Levaquin-D5w) 750 mg in 150 mls @ 100 mls/hr IV ONCE ONE; Protocol Stop: 08/30/25 18:29 Last Infusion: 08/30/25 20:53 Dose: Infused Lidocaine HCl 5 ml/ Potassium (Chloride) 105 mls @ 26.25 mls/hr IV PRN PRN PRN Reason: hypokalemia Last Infusion: 08/31/25 22:55 Dose: Infused Magnesium Sulfate (Magnesium Sulfate Premix) 2 gm in 50 mls @ 50 mls/hr IV PRN PRN PRN Reason: HYPOMAGNESIUMIA Dextrose (D10w) 125 mls @ 750 mls/hr IV PRN PRN; Protocol PRN Reason: Adult DKA Hypoglycemia Nursing Protocol Dextrose (D10w) 250 mls @ 1,000 mls/hr IV PRN PRN; Protocol PRN Reason: Adult DKA Hypoglycemia Nursing Protocol Insulin Human Regular (Myxredlin 100 Unit/100 Ml Bag) 100 unit in 100 mls @ 0 mls/hr IV PROTOCOL ANNE; Protocol Potassium Phosphate 40 meq/ (Sodium Chloride) 109.0909 mls @ 27.25 mls/hr IV PRN PRN PRN Reason: hypophosphatemia Sodium Chloride (Sodium Chloride 0.9%) 1,000 mls @ 999 mls/hr IV .Q1H1M ONE Stop: 08/30/25 19:27 Last Infusion: 08/30/25 20:53 Dose: Infused Sodium Chloride (Sodium Chloride 0.9%) 1,000 mls @ 999 mls/hr IV .Q1H1M ONE Stop: 08/30/25 19:27 Last Infusion: 08/30/25 20:53 Dose: Infused Vancomycin HCl / Sodium (Chloride) 250 mls @ 0 mls/hr [id number] PROTOCOL ANNE; Protocol Piperacillin Sod/Tazobactam (Sod / Sodium Chloride) 50 mls @ 0 mls/hr [id number] CONT ANNE; Protocol Vancomycin HCl (Vancocin) 1,750 mg in 350 mls @ 175 mls/hr IV Q12H [facility] Insulin Human Regular (Myxredlin 100 Unit/100 Ml Bag) 100 unit in 100 mls @ 0 mls/hr IV PROTOCOL ANNE; Protocol Last Titration: 09/01/25 06:43 Dose: 7.5 unit/hr, 7.5 mls/hr Dextrose/Sodium Chloride (Dextrose 5%-Sod Chloride 0.9%) 1,000 mls @ 125 mls/hr IV .Q8H PRN PRN Reason: blood glucose less than or equal to 250 mg/dL Last Infusion: 08/31/25 19:00 Dose: 0 mls/hr Vancomycin HCl (Vancocin) 1,750 mg in 350 mls @ 175 mls/hr IV Q12H [facility]; Protocol Last Infusion: 08/31/25 02:53 Dose: Infused Potassium Chloride/Dextrose/Sod Cl (Dextrose 5%-Ns + Kcl 20) 20 meq in 1,000 mls @ 125 mls/hr IV .Q8H [facility] Last Admin: 09/01/25 01:39 Dose: 125 mls/hr Insulin Human Regular (Insulin Regular-Human 100 Units/1 Ml) 10 unit IVP ONCE ONE Stop: 08/30/25 18:25 Last Admin: 08/30/25 18:29 Dose: 10 unit Iohexol (Iohexol 350 Mg/Ml 500 Ml Btl (Per Ml)) 0 ml IV ONCE ONE Stop: 08/30/25 18:12 Last Admin: 08/30/25 18:12 Dose: 100 ml Ketorolac Tromethamine (Ketorolac 30 Mg/Ml Inj) 15 mg IVP ONCE ONE Stop: 08/31/25 20:02 Last Admin: 08/31/25 20:16 Dose: 15 mg Lidocaine (Lidocaine 5% Patch) 1 patch TOPICAL [id number] [facility] [place] Morphine Sulfate (Morphine 4 Mg/Ml Sdv 1 Ml) 4 mg IVP ONCE ONE Stop: 08/30/25 16:27 Last Admin: 08/30/25 16:34 Dose: 4 mg Ondansetron HCl (Ondansetron 2 Mg/Ml Sdv 2 Ml) 4 mg IVP ONCE ONE Stop: 08/30/25 16:27 Last Admin: 08/30/25 16:35 Dose: 4 mg Potassium Chloride (Potassium Chloride Oral Liq 20 Meq/15 Ml Udc) 40 meq PO ONCE ONE Stop: 08/31/25 20:01 Last Admin: 08/31/25 20:16 Dose: 40 meq Allergies No Known Allergies Allergy (Verified 08/28/25 21:59) Home Medications acetaminophen 500 mg tablet (Tylenol Extra Strength) 1,000 mg PO Q6H PRN Pain 11/12/20 [History Confirmed 08/30/25] multivitamin 1 tab PO DAILY@10 11/12/20 [History Confirmed 08/30/25] saw palmetto 500 mg capsule 1,000 mg PO BID 11/12/20 [History Confirmed 08/30/25] vitamin B complex 1 tab PO DAILY 11/12/20 [History Confirmed 08/30/25] amoxicillin 875 mg-potassium clavulanate 125 mg tablet 1 tab PO BID 10 days #20 tabs 08/29/25 [Rx Confirmed 08/30/25] doxycycline hyclate 100 mg tablet 100 mg PO BID 10 days #20 tabs 08/29/25 [Rx Confirmed 08/30/25] Discharge Plan Discharge Patient Disposition: Home Condition: Stable Prescriptions: No Action multivitamin Tablet 1 tab PO DAILY@10 acetaminophen [Tylenol Extra Strength] 500 mg Tablet 1,000 mg PO Q6H PRN (Reason: Pain) vitamin B complex Tablet 1 tab PO DAILY saw palmetto 500 mg Capsule 1,000 mg PO BID doxycycline hyclate 100 mg tablet 100 mg PO BID 10 Days Qty: 20 0RF amoxicillin-pot clavulanate 875-125 mg tablet 1 tab PO BID 10 Days Qty: 20 0RF Patient Instructions: Opioid Safety, Patient Portal & Liza Instructions Transfer Attestations Time Spent in Transfer Care: critical care time Critical Care Time (min): 70 Specific Discharge Activities: educating patient, educating and/or supporting family/caregiver, discussing with pcp/other providers, discussing with family preservation caseworker/social workers/dc planners, documenting/other paperwork and evaluating patient/reviewing data Quality Metrics Clinical Quality Measures [ No reported AMI, CVA or VTE this stay] Coding Level of Care Code Critical Care >/= 30 minutes Critical care time (in minutes): 70 The high probability of a clinically significant, sudden or life threatening deterioration, as referenced in this documentation, required my full and direct attention, intervention and personal management. The critical care time shown is in addition to time spent performing any reported separately billable procedures and includes the following: [x] Data and vital sign review and interpretation [x ] Patient assessment, examination and intervention [x] Medication orders and management [x] Patient/Family updates as able [x] Care Coordination and Documentation. Diagnoses Right lower lobe pneumonia J18.9 Pneumonia type: due to unspecified organism Diabetic ketoacidosis without coma associated with type 2 diabetes mellitus E11.10 Diabetes mellitus complication detail: without coma Diabetes mellitus type: type 2 Exudative pleural effusion J90 High anion gap metabolic acidosis E87.29 Hyperglycemia R73.9 Gross hematuria R31.0 Hematuria type: gross Failure of outpatient treatment Z78.9 Type 2 diabetes mellitus with hyperglycemia, unspecified whether prison insulin use E11.65 Diabetes mellitus intermission coordinator insulin use: unspecified intermission coordinator insulin use status Diabetes mellitus complication status: with hyperglycemia Severe episode of recurrent major depressive disorder, without psychotic features F33.2 Active/Remission status: currently active Major depression episode severity: severe Psychotic features: without psychotic features Benign hypertension I10 Loculated pleural effusion J90
[2025-09-01] MEDS: HYDROcodone-acetaminophen 5-325 mg Tablet 1 TAB PO (13:37)
--- NOTE | 2025-09-01 13:45 | PC.NURSE ---
Pt taken to med[facility] via wheelchair on 2L NC. All belongings taken upstairs and placed in room. Wallet, keys, and medications taken upstairs and placed in pyxis by primary nurse.
[2025-09-08 18:54] LABS: Amylase, Pleural Fluid 16 U/L
== END 2025-09-01 17:26 | disposition short-term general hospital (02) | DRG 637 ==
LOC: ER 18:27 → ICU 20:56 → MEDSURG 09-01 13:00
PROVIDERS: Student in an Organized Health Care Education/Training Program; Admitting Provider Student in an Organized Health Care Education/Training Program; Emergency Provider Emergency Medicine; Visit Provider Student in an Organized Health Care Education/Training Program
DX: E11.10 Type 2 diabetes mellitus with ketoacidosis without coma (principal); J18.9 Pneumonia, unspecified organism; J91.8 Pleural effusion in other conditions classified elsewhere; F33.2 Major depressive disorder, recurrent severe without psychotic features; R09.02 Hypoxemia; K74.60 Unspecified cirrhosis of liver; B19.20 Unspecified viral hepatitis C without hepatic coma; J43.9 Emphysema, unspecified; E66.9 Obesity, unspecified; R31.0 Gross hematuria; M54.9 Dorsalgia, unspecified; G89.29 Other chronic pain; E78.5 Hyperlipidemia, unspecified; I10 Essential (primary) hypertension; F41.9 Anxiety disorder, unspecified; Z79.899 Other long term (current) drug therapy; Z85.828 Personal history of other malignant neoplasm of skin; Z87.891 Personal history of nicotine dependence; Z68.35 Body mass index [BMI] 35.0-35.9, adult
CPT/HCPCS: 32555; 36415; 36416; 36592; 36600; 51702; 71045; 71275; 76604; 80048; 80051; 80053; 80061; 80306; 80307; 80503; 81001; 82009; 82042; 82150; 82330; 82465; 82607; 82746; 82805; 82945; 82962; 83036; 83540; 83550; 83605; 83615; 83735; 83880; 83986; 84075; 84100; 84145; 84157; 84315; 84443; 84478; 84484; 84560; 85025; 86140; 86403; 87015; 87040; 87070; 87075; 87102; 87116; 87205; 87206; 87637; 87801; 88112; 89050; 93005; 93306; 94640; 96365; 96366; 96367; 96372; 96374; 96375; 96376; 99285; 99291; J0692; J1100; J1171; J1815; J1885; J1956; J2270; J2405; J2543; J3010; J3372; J3480; J7030; J7042; J7626; J9999